=== PATIENT | female | born 1960 | race Caucasian/White ===

== ENCOUNTER 2016-12-05 11:03 | Inpatient (IN) | payer SELFPAY ==
[~2016-12-05] VITALS: Ht 172.7 cm; Wt 95.5 kg
[2016-12-05 12:09] LABS: BASOPHILS 0.3 % (0-2); EOSINOPHILS 1.2 % (0-7); HEMATOCRIT 45.6 % (36.0-48.0); HEMOGLOBIN 14.9 g/dL (12-16); IMMATURE GRANULOCYTES 0.3 % (0-5); LYMPHOCYTES 13.8 % (15-50); MCH 29.5 pg (26.0-34.0); MCHC 32.7 g/dL (31.0-37.0); MCV 90.3 fL (80.0-100.0); MEAN PLATELET VOLUME 10.3 fL (7.4-10.4); MONOCYTES 7.1 % (2-11); NEUTROPHILS 77.3 % (40-80); PLATELET COUNT 268 10x3/uL (130-400); RBC 5.05 10x6/uL (4.00-5.40); RDW 14.1 % (11.5-14.5); WBC 10.6 10x3/uL (4.8-10.8)
[2016-12-05 12:16] LABS: APPEARANCE SLT CLOUDY (CLEAR); BACTERIA MANY /hpf (NONE SEEN); BILIRUBIN NEGATIVE (NEGATIVE); COLOR YELLOW (YELLOW); GLUCOSE NEGATIVE (NEGATIVE); KETONE NEGATIVE (NEGATIVE); LEUKOCYTE ESTERASE TRACE (NEGATIVE); NITRITE POSITIVE (NEGATIVE); PROTEIN 3+ mg/dL (NEGATIVE); RED CELLS - URINE 0-5 /hpf (0-5); UROBILINOGEN NORMAL (NORMAL)
[2016-12-05 12:17] LABS: EPITHELIAL CELLS RARE /hpf (0-5)
[2016-12-05 12:30] LABS: ALBUMIN 2.7 g/dL (3.4-5.0); ALKALINE PHOSPHATASE 82 U/L (46-116); ALT (SGPT) 13 U/L (10-68); BILIRUBIN - TOTAL 0.41 mg/dL (0.2-1.3); CALC OSMOLALITY 289 mosm/kg (275-300); CALCIUM 9.1 mg/dL (8.5-10.1); CARBON DIOXIDE 28.1 mmol/L (21.0-32.0); CHLORIDE - SERUM 105 mmol/L (98-107); CREATININE - SERUM 0.8 mg/dL (0.6-1.3); GLUCOSE 247 mg/dL (74-106); POTASSIUM - SERUM 3.9 mmol/L (3.5-5.1); PROTEIN - SERUM 7.2 g/dL (6.4-8.2); SODIUM 141 mmol/L (136-145); UREA NITROGEN 15 mg/dL (7-18); eGFR NON AFRICAN AMERICAN 78 mL/min (90-120)
[2016-12-05 12:36] LABS: INR 0.97 (0.85-1.17); PROTIME 12.7 SECONDS (11.6-15.0)
[2016-12-05 12:43] LABS: CKMB 0.5 U/L (0.0-3.6); CREATINE KINASE 33 UL (21-215); MAGNESIUM - SERUM 1.8 mg/dL (1.8-2.4); PRO BNP 243 pg/mL (0-125)
[2016-12-05 12:48] LABS: TROPONIN-I < 0.017 ng/mL (0.000-0.060)
[2016-12-05 17:30] VITALS: BP 193/90
--- NOTE | 2016-12-05 17:30 | NUR ---
TO ROOM 2239 FROM ER VIA STRETCHER.ASSESSMENT PER FLOW SHEET.UPPER AND LOWER RIGHT SIDED WEAKNESS.PT IS ALERT AND TALKING.STATES SHE HAD NOTICED THE WEAKNESS FOR 2 DAYS AND WAS GOING TO TODAY.SHE REPORTS SHE FELL AND HAD TO CALL AMBULANCE AND COME TO HOSPITAL.ORIENTATION TO ROOM WITH PT AND HER .CALL LIGHT IN REACH
[2016-12-05 17:57] VITALS: BP 193/90; BMI 33.2
[2016-12-05] MEDS ORDERED: ULTRAM50 MG PO (18:23)
[2016-12-05 19:00] VITALS: BP 157/74
--- NOTE | 2016-12-05 19:50 | NUR ---
ASSESSMENT COMPLETED, NO DISTRESS NOTED, DENIES PAIN OR NEEDS, SR'S UP, CL IN REACH, SPOUSE IN ROOM, WILL MONITOR
[2016-12-05 20:11] LABS: HEMOGLOBIN A1C 7.8 % (4.8-6.0)
[2016-12-05 20:16] LABS: CHOL - HDL RATIO 2.9 ratio (2.3-4.1); LDL-HDL RATIO 1.6 ratio (1.5-3.5)
--- NOTE | 2016-12-05 20:23 | NUR ---
MEDS GIVEN PER MAR, 8 UNITS INSULIN PER SLIDING SCALE, MIGUEL A WELL, DENIES NEEDS AT THIS TIME, SR'S UP, CL IN REACH, S/O IN ROOM, CL IN REACH
--- NOTE | 2016-12-05 22:40 | NUR ---
RESTING WITH EYES CLOSED, NO DISTRESS NOTED, FALL PRECAUTIONS IN PLACE, CL IN REACH
[2016-12-06] VITALS (7 sets, daily range): BP systolic 132–214; BP diastolic 56–93; Ht 172.7 cm; Wt 95.5 kg
--- NOTE | 2016-12-06 01:45 | NUR ---
BED BATH PROVIDED WITH HUSBANDS ASSISTANCE
--- NOTE | 2016-12-06 19:10 | NUR ---
ASSESSMENT COMPLETED, NO ACUTE DISTRESS NOTED, DENIES PAIN OR NEEDS AT THIS TIME, SR'S UP, BED ALARM ON, CL IN REACH, WILL MONITOR
--- NOTE | 2016-12-06 20:33 | NUR ---
ASSISTED ON BEDPAN, MEDS GIVEN PER JUL, 4 UNITS INSULIN PER SLIDING SCALE, MIGUEL A WELL, DENIES NEEDS, AT BEDSIDE, SR'S UP, BED ALARM ON, CL IN REACH
--- NOTE | 2016-12-06 21:40 | NUR ---
SITTING UP IN BED WATCHING TV, DENIES PAIN OR NEEDS, SAFETY PRECAUTIONS IN PLACE, CL IN REACH
--- NOTE | 2016-12-06 23:06 | NUR ---
ASSISTED ON AND OFF BEDPAN, MIGUEL A WELL, DENIES FURTHER NEEDS, SAFETY MEASURES IN PLACE, CL IN REACH
--- NOTE | 2016-12-07 01:15 | NUR ---
RESTING WITH EYES CLOSED, RESP WITH EASE, NO DISTRESS NOTED, SAFETY MEASURES IN PLACE, CL IN REACH
[2016-12-07 03:54] VITALS: BP 196/81
[2016-12-07 08:59] VITALS: BP 185/80
--- NOTE | 2016-12-07 12:30 | NUR ---
HAS HAD BATH, PROVIDED.HAS BEEN WITHOUT DISTRESS AND ALERT.RIGHT ARM HAS MODERATE WEAKNESS.PT STATES RIGHT LEG BETTER.INSTRUCTED PT THAT SHE IS AT RISK FOR FALL AND IS NOT TO GET UP.BED ALARM REMAINS ON AND WORKING. AT BEDSIDE
[2016-12-07 13:24] VITALS: BP 139/74
[2016-12-07 15:44] VITALS: BP 164/70
--- NOTE | 2016-12-07 16:20 | NUR ---
BED CHANGE AFTER BATH AGAIN BY .PT REMAINS WITHOUT DISTRESS.MONITOR
--- NOTE | 2016-12-07 16:57 | NUR ---
BLOOD SUGAR 163 AFTER DINNER TRAY. PT DECLINES INSULIN.STATES IF IT IS HIGH LATER SHE WILL TAKE SOME.REMAINS WITHOUT CHANGE FROM INITIAL SHIFT ASSESSMENT.CONT PLAN OF CARE
--- NOTE | 2016-12-07 19:45 | NUR ---
RECIEVED SHIFT REPORT. PT IS SITTING UP IN BED. ALERT AND ORIENTED AND ABLE TO VERBALIZE NEEDS. IV IS PATENT AND SALINE LOC AT THIS TIME. PT IS ABLE TO TURN SELF IN BED FOR COMFORT AND SKIN CARE. PT STATES PAIN IS 7/10. NO NEEDS ARE VERBALIZED AT THIS TIME. WILL CONTINUE TO MONITOR. IS AT THE BEDSIDE. SIDE RAILS ARE UP X 2. BED IS IN LOWEST POSITION. BED ALARM IS ON FOR SAFETY. CALL LIGHT IS WITHIN REACH.
--- NOTE | 2016-12-07 21:31 | NUR ---
SHIFT ASSESSMENT COMPLETED. NIGHT MEDS GIVEN WITH NO PROBLEMS. PT RECIEVED 4 UNITS INSULIN PER SLIDING SCALE FOR FOCJ=844. PT C/O PAIN 12/08. ADMINISTERED PRESCRIBED PRN ULTRAM PER ORDER. DENIES FURTHER NEEDS. WILL MONITOR. AT BEDSIDE. SIDE RAILS X 2. BED LOW. BED ALARM ON. CALL LIGHT IN REACH.
[2016-12-08 04:00] VITALS: BP 176/67
[2016-12-08 07:44] VITALS: BP 112/51
[2016-12-08 07:45] VITALS: BP 138/84
--- NOTE | 2016-12-08 07:50 | NUR ---
PT AOX4 RESP EVEN AND NONLABORED PT DENIES NEEDS AT THIS TIME IV TO RIGHT FOREARM PATENT AND INTACT AT THIS TIME SRX2 BED AT LOWEST SETTING CALL LIGHT WITHIN REACH WILL CONTINUE TO MONITOR
--- NOTE | 2016-12-08 10:17 | NUR ---
Patient Name: JESSE SHAFFER Admission Status: ER Accout number: [id number] Admission Date: 12-05-2016 : 1960 Admission Diagnosis: Attending: MAGGIE Current LOS: 3 Anticipated DC Date: 12-11-2016 Planned Disposition: Home with Home Health Primary Insurance: [employer] Discharge Planning Comments: CM MET WITH PATIENT REGARDING D/C NEEDS AND PLANS. PATIENT STATED SHE LIVES WITH HER SPOUSE (ES) AND HE WILL DRIVE PATIENT HOME AT DISCHARGE. PATIENT HAS 2 STEPS W/O RAILING TO ENTER HOME AND NO STAIRS INSIDE. PATIENTS PCP IS DR. CASANOVA AND PHARMACY IS [facility]. PATIENT STATED SHE IS INDEPENDENT AT HOME AND HAS A GLUCOMETER AND BS COMMODE. PATIENT SIGNED THE ZEN FORM WITH [employer] AND REFERRAL HAS BEEN SENT. CM WILL CONTINUE TO FOLLOW PATIENT WITH D/C NEEDS AND PLANS. PCP DR. J[facility]NE [facility]- [phone] ES (SPOUSE) [phone] OR [phone] Relationship Executive: Maria Guadalupe Herron Is the patient Alert and Oriented? Yes 0 * How many steps to enter\exit or inside your home? 2 0 * PCP JOCELYNE 0 * Pharmacy [facility] 0 * Preadmission Environment Home with Family 0 * ADLs Independent 0 * Equipment Bedside Commode Glucometer 0 * List name and contact numbers for known caregivers / representatives who currently or will assist patient after discharge: ES (SPOUSE) [phone] OR [phone] 0 * Community resources currently utilized None 0 * Additional services required to return to the preadmission environment? Yes 0 * Can the patient safely return to the preadmission environment? Yes 0 * Has this patient been hospitalized within the prior 30 days at any hospital? No 0 Grand Total: 0
[2016-12-08 11:38] VITALS: BP 100/59
--- NOTE | 2016-12-08 13:38 | NUR ---
NUTRITION MONITORING & EVAL CHART REVIEWED. PT VISIT. PT TOLERATING AHA MECH SOFT DIET. NO COMPLAINTS. WILL CONTINUE TO PROVIDE CURRENT DIET, MONITOR PO INTAKE. RD FOLLOWING
[2016-12-08 15:46] VITALS: BP 164/71
--- NOTE | 2016-12-08 17:06 | NUR ---
OT NOTE: PT COMPLETED PROPER POSITIONING DURING MEAL. PT REQUIRES MIN/MOD WITH CUTTING OF FOODS. PT COMPLETED SROM EXS FOR OPTIMAL RETURN OF FUNCTION OF RUE, THANK YOU, OLIVIER ROCA/Adrian
[2016-12-08 20:00] VITALS: BP 163/80
[2016-12-09] VITALS: BP 152/77
--- NOTE | 2016-12-09 03:00 | NUR ---
PATIENT IS RESTING QUIETLY WITH EYES CLOSED. NO SIGNS OF DISTRESS NOTED. BED IN LOWEST POSITION, CALL LIGHT IN REACH. BED RAILS UP X'S 2.
[2016-12-09 04:00] VITALS: BP 166/76
[2016-12-09 09:05] VITALS: BP 163/82
--- NOTE | 2016-12-09 10:17 | EC ---
PATIENT:JESSE SHAFFER DATE OF SERVICE: 12/05/16 SEX: F MEDICAL RECORD: [id number] DATE OF : [birth year] LOCATION:[facility] AGE OF PATIENT: 55 ADMISSION DATE: 12/05/16 REFERRING PHYSICIAN: INTERPRETING PHYSICIAN: CHRIS ESCUDERO MD ECHOCARDIOGRAM REPORT ECHO CHARGES 4 ECHO COMPLETE CLINICAL DIAGNOSIS: CVA ECHOCARDIOGRAPHIC MEASUREMENTS (adult normal given) AC root (d.<3.7cm) 3.1 LV Septum d (<1.2 cm> 1.2 Valve Excursion 2.0 LV Septum (systole) 1.4 Left Atria (s.<4.0cm> 3.1 LVPW d(<1.2cm) 1.1 RV (d.<2.3cm) 3.2 LVPW (sytole) 1.3 LV diastole(<5.6CM) 3.7 MV E-F(>70mm/sec) LV systole 2.5 LVOT Diameter 1.4 MV exc.(>10mm) 1.4 Est.ejection fraction (50-75%) Pericardial Effusion N DOPPLER: LVIT A 103 E 82.0 LA RVSP 17 LVOT 89 AOP1/2T Asc. Ao 109 RVOT 43 RA PA 108 AV Gradient Peak 4.71 AV Mean 2.37 AV Area 1.5 MV Gradient Peak 4.89 MV Mean 2.34 MV Area COMMENTS: PA 108 CM/SEC OR 4.64 MMHG RVSP 17 MMHG Weave Defect Charting Clerk: Madison MARTINEZ Hris Developer:1 Dr. Escudero TAPE# PACS TWO-DIMENSIONAL ECHOCARDIOGRAM WITH DOPPLER 1. Left ventricular chamber size is within normal limits. Left ventricular systolic function is normal. Overall ejection fraction is estimated at 55 percent. 2. Left atrium, right atrium, and right ventricular chamber sizes are within normal limits. 3. Valvular structures have normal structure and motion. 4. Doppler interrogation reveals mild tricuspid regurgitation; no other valvular insufficiency or stenosis. Pulmonary artery systolic pressure is normal estimated at 17 millimeters of mercury. ECHOCARDIOGRAM REPORT [id number] JESSE SHAFFER 5. No evidence of pericardial effusion or left ventricular thrombus. CHRIS ESCUDERO MD at 1017 CC: [id number] DICTATION DATE: 12/06/16 1200 BAR POINTER: DM 12/08/16 0937 ADM IN [facility] [address] [facility] [place] [address]
[2016-12-09 11:37] VITALS: BP 135/71
--- NOTE | 2016-12-09 17:09 | NUR ---
OT NOTE: SHOWING GOOD PROGRESS WITH AROM AND COORDINATION IN R HAND; PT EXHIBITS ALMOST FULL AROM IN ALL JOINTS OF R HAND; STRENGTH IS DECREASED BUT MUCH BETTER MOVEMENT NOTED TODAY. INSTRUCTED PT IN EXS TO BE PERFORMED TO HELP IMPROVE STREGNTH AND FINE MOTOR COORDINATION
--- NOTE | 2016-12-09 17:09 | NUR ---
OT NOTE: PT COMPLETED SIT TO STANDS WITH CGA. PT COMPLETED DYNAMIC STANDING BALANCE WITH LUE GROSS MOTOR AXS FOR INCREASED I WITH ADLS. PT COMPLETED RUE SROM EXERCISES TO FACILITATE NEURO PLASTICITY. PT GIVEN FM SKILL ACTIVITIES FOR INCREASED I WITH DRESSING AND SELF FEEDING. PT COMPLETED SIMPLE GROOMING TASK WITH SET UP. THANK YOU, OLIVIER ROCA/Adrian
--- NOTE | 2016-12-09 19:48 | NUR ---
PATIENT IS AWAKE, ALERT AND ORIENTED X'S 4. RESPIRATIONS ARE EVEN AND UNLABORED ON ROOM AIR. PATIENT IS SMILING, VERY PLEASENT, TELLING ME ABOUT HER DAY AND ACCOMPLISHMENTS WITH HER PHYSICAL THERAPY PROGRESSION. PATIENT DENIES NEEDS AT THIS TIME. BED IS IN LOWEST POSITION, CALL LIGHT IN REACH. BED RAILS UP X'S 2. HOB 45 DEGRESS.
[2016-12-09 20:00] VITALS: BP 168/79
[2016-12-10 08:10] VITALS: BP 140/68
[2016-12-10 12:51] VITALS: BP 153/65
[2016-12-10] MEDS ORDERED: PLAVIX75 MG PO (14:02)
[2016-12-10] MEDS ORDERED: ELIQUIS5 MG PO (14:02)
[2016-12-10] MEDS ORDERED: LIPITOR10 MG PO (14:02)
[2016-12-10] MEDS ORDERED: LISINOPRIL10 MG PO (14:03)
[2016-12-10] MEDS ORDERED: GLUCOPHAGE1000 MG PO (14:04)
--- NOTE | 2016-12-10 16:21 | NUR ---
CM SPOKE WITH PATIENT ABOUT OUT PATIENT THEARPY I GAVE THE PATIENT THE FISCHER FOR SCHAFFER PAYING. I EXPLAINED TO HER THE COST AND SHE STATED THAT SHE COULD NOT AFFORD THAT. ANGULAR DEVELOPER PT/OT ([place]) STATED THAT SHE COULD COME TO OP THEARPY AND HE WOULD SHOW HER SOME EXERCISES AND NOT CHARGE HER AND SHE COULD DO THEM AT HOME. PATIENT WAS GREATFUL AND WILL COME UP THERE TOMORROW
--- NOTE | 2016-12-10 17:22 | NUR ---
IV DISCONTINUED WITH CATHETER INTACT AT THIS TIME PT AND SPOUSE GIVEN DISCHARGE INSTRUCTIONS AND APPT TIMES AT THIS TIME PT AND SPOUSE STATE UNDERSTANDING
--- NOTE | 2016-12-10 17:52 | NUR ---
PT TAKEN VIA WHEELCHAIR VIA PRIVATE VEHICLE AT THIS TIME
== END 2016-12-10 17:53 | disposition home or self-care (01) | DRG 65 ==
LOC: D.ER 11:03 → D.MS 14:48
PROVIDERS: Emergency Medicine; Nurse Practitioner Family; ADMIT Family Medicine
DX: I63.232 Cerebral infarction due to unspecified occlusion or stenosis of left carotid arteries (principal); N39.0 Urinary tract infection, site not specified; E11.65 Type 2 diabetes mellitus with hyperglycemia; I10 Essential (primary) hypertension; Z79.4 Long term (current) use of insulin; F17.200 Nicotine dependence, unspecified, uncomplicated

== ENCOUNTER → 2017-01-08 14:40 | Outpatient (CLI) | payer SELFPAY ==
[2016-12-06 10:15] VITALS: BMI 33.1
[~2017-01-08 14:40] MED LIST: ELIQUIS5 MG PO; GLUCOPHAGE1000 MG PO; LIPITOR10 MG PO; LISINOPRIL10 MG PO; PLAVIX75 MG PO; ULTRAM50 MG PO
== END | disposition home or self-care (01) ==
LOC: D.CT 01-06 15:30
DX: I65.23 Occlusion and stenosis of bilateral carotid arteries (principal)

== ENCOUNTER 2017-02-16 09:10 | Inpatient (IN) | payer SELFPAY ==
[~2017-02-16] VITALS: Ht 172.7 cm; Wt 97.5 kg
--- NOTE | ~2017-02-16 | OP ---
PATIENT NAME: JESSE SHAFFER MEDICAL RECORD: [id number] :58 [facility] ADMISSION DATE:02/16/17 SURGEON: STEPHEN MARIANO MD DATE OF OPERATION: 02/18/2017 SURGEON: Stephen Mariano MD ANESTHESIA: General endotracheal, Dr. Chopra. OPERATION PERFORMED: Left carotid endarterectomy with patch angioplasty. PREOPERATIVE DIAGNOSES: Critical left internal carotid artery stenosis, severe right internal carotid artery stenosis. POSTOPERATIVE DIAGNOSES: Critical left internal carotid artery stenosis, severe right internal carotid artery stenosis. INDICATION FOR OPERATION: Critical carotid stenosis. FINDINGS AT OPERATION: Critical left internal carotid artery stenosis. There were no EEG changes with clamping or unclamping of the carotid artery. ESTIMATED BLOOD LOSS: Less than 100 mL. DESCRIPTION OF PROCEDURE: After informed consent and adequate preoperative medication evaluation, the patient was brought to the operating room and placed on the table in the supine position. After induction of general endotracheal anesthesia and application of appropriate monitoring devices, the left neck and chest were prepped and draped in a sterile field, utilizing Betadine scrub, alcohol, and Betadine solution. A Betadine-impregnated drape was also used. An oblique incision was made in the skin crease. Dissection was carried down to the fascia. Hemostasis was maintained with electrocautery. Facial vein was identified and divided. Utilizing sharp dissection, the common carotid, internal and external carotid arteries were dissected free of surrounding structures, protecting the neurological structures. The patient was given a calculated dose of heparin. After 3 minutes, clamps were applied. After 2 minutes, no EEG changes. The arteriotomy was made and extended with Pickens scissors. Artery underwent endarterectomy sharply. Artery underwent extensive debridement and irrigation. Utilizing a vascular patch, a running 7-0 Prolene suture, the arteriotomy was closed with patch angioplasty technique. All maneuvers to remove trapped air were performed. The clamps were removed sequentially. There were no EEG changes. The patient was given a calculated dose of protamine to reverse the heparin. Hemostasis was achieved, and a #7 Osman-Carmona drain was left in the depth of wound and brought through the base of the neck. Neck was again irrigated. Instrument count and sponge count were correct times 2. Neck was closed in layers utilizing 3-0 Vicryl on the platysma, 5-0 subcuticular Monocryl on the skin. Sterile dressings were applied. The patient tolerated the procedure well and was transferred to CV ICU in satisfactory condition. TRANSINT:[id number] Voice Confirmation ID: [id number] DOCUMENT ID: [id number] OPERATIVE REPORT [id number] JESSE SHAFFER EDWARD MD CC: [id number] DICTATION DATE: 02/18/171601 SOLE SEAMER: 02/18/17 192 ADM IN [facility] [address] [place] [address]
--- NOTE | ~2017-02-16 | HP ---
PATIENT: JESSE SHAFFER MEDICAL RECORD: [id number] ACCOUNT: [id number] LOCATION:[address] : [birth year] ADMISSION DATE: 02/16/17 HISTORY AND PHYSICAL EXAMINATION NameJESSE SHAFFER (56yo, F) ID# [id number]. Date/Time02/12/2017 09:45SCOFU61/30/[facility] Dept.NPP_[facility] ClinicProviderEDMARION MARIANO MDInsuranceMed Primary: *SELF PAY* Prescription: [employer] - This member could not be found in the payer's files. Please verify coverage and all member demographic information. Chief Complaint Followup: Carotid artery stenosis RTC with CTA neck Patient's Care Team Primary Care Provider: DAKOTA CASANOVA MD: [address] [place] [address], , Other: ZORA DOUGLAS MD: [address] [place] [address], , Vitals BP:120/80 sitting R arm 02/12/2017 09:36 amHR:100R/R 02/12/2017 09:37 amHt:5 ft 8 in 02/12/2017 09:28 amWt:218 lbs 02/12/2017 09:34 amBMI:33.1 02/12/2017 09:34 amAllergies Reviewed Allergies PENICILLINSMedications Reviewed Medications atorvastatin 10 mg tablet TK 1 T PO QD01/10/17 filledsurescriptsclopidogrel 75 mg tablet TK 1 T PO QD01/10/17 filledsurescriptsEliquis 5mg twice daily12/30/16 enteredCindy BrownEliquis 5 mg tablet TK 1 T PO BID01/31/17 filledsurescriptslisinopril 20 mg tablet TK 1 T PO QD01/10/17 filledsurescriptsmetFORMIN 1,000 mg tablet TK 1 T PO BID WITH MEALS01/10/17 filledsurescriptstraMADol 50 mg tablet TK 1 T PO Q 6 H PRN P001/05/17 rtsawfeuboysgolfbXjoxlb53/01/17 enteredFormerly [facility] Healthshruthi BrownProblems Reviewed Problems Carotid artery stenosis - Onset: 12/30/2016 Family History Discussed Family History Father- Malignant neoplastic diseaseMother- Malignant neoplastic diseaseSocial History Discussed Social History Cardiology Family history of heart disease?: Y Smoking Status: Current every day smoker High Cholesterol: Y High blood pressure: Y Diabetes: Y Surgical History Reviewed Surgical History Other - Tonsilectomy Other - ACF 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 HPI stroke Severe internal carotid artery bilaterally ROS Patient reports exercise intolerance but reports no fever, no night sweats, no significant weight gain, and no significant weight loss. She reports muscle aches, muscle weakness, and arthralgias/joint pain but reports no back pain and no swelling in the extremities. She reports weakness and numbness but reports no loss of consciousness, no seizures, no dizziness, and no headaches; stroke left jess. She reports no dry eyes, no irritation, and no vision change. She reports no difficulty hearing and no ear pain. She reports no frequent nosebleeds and no nose/sinus problems. She reports no sore throat, no bleeding gums, no snoring, no dry mouth, no mo u th ulcers, no oral abnormalities, and no teeth problems. She reports no jugular vein distension and no swollen glands. She reports no chest pain, no arm pain on exertion, no shortness of breath when walking, no shortness of breath when lying down, no palp i tations, and no known heart murmur. She reports no cough, no wheezing, no shortness of breath, and no coughing up blood. She reports no abdominal pain, no vomiting, normal appetite, no diarrhea, not vomiting blood, no nausea, and no constipation. She repo r ts no incontinence, no difficulty urinating, no hematuria, and no increased frequency. She reports no abnormal mole, no jaundice, and no rashes. She reports no depression, no sleep disturbances, feeling safe in relationship, and no alcohol abuse. She repo rts no fatigue. She reports no swollen glands and no bruising. She reports no runny nose, no sinus pressure, no itching, no hives, and no frequent sneezing. ROS as noted in the HPI Physical Exam Patient is a 56-year-old female. Constitutional: General Appearance healthy-appearing, well developed, and overweight. Level of Distress NAD. Ambulation ambulation with walker. Cardiovascular: Apical Impulse not displaced or no thrill. Heart Auscultation normal s1 and s2; no murmurs, rubs, or gallops; and RRR. Art erial Pulses no abdominal aorta bruits, femoral bruits, or popliteal bruits and 2+ bilateral, carotid 2+ bilateral, femoral 2+ bilateral, popliteal 2+ bilateral, and dorsalis pedis 2+ bilateral. Edema no edema or varicosities. Lungs: Repiratory Effort no dyspnea. Percussion no hyperresonance or dullness or flatness. Auscultation no wheezing, rhonchi, or rales / crackles and breathing sounds normal, good air movement, and CTA except as noted. HISTORY AND PHYSICAL [id number] JESSE SHAFFER Abdomen: Bowl Sounds normal. Inspection and Palpation no tendern ess, guarding, masses, or rebound tenderness and soft and non-distended. Liver non-tender and no hepatomegaly. Spleen non-tender and no splenomegaly. Hernia none palpable. Musculoskeletal System: Gait And Stance wide-based and irregular gait and stance. Digits and Nails normal nails and no cyanosis. Joints, Bones, and Muscles limited ROM and abnormal strength; especially right upper extremity. Neurologic: Cranial Nerves grossly intact. Reflexes DTRs abnormal. Sensation grossly intact. Lymph Nodes: Lymph Nodes no cervical LAD, supraclavicular LAD, axillary LAD, or inguinal LAD. Eyes: Lids and Conjunctivae no discharge or pallor and non-injected. Pupils PERRLA. Cornea grossly intact. EOM EOMI. Lens clear. Sclera non-icteric. Neck: Neck no masses, enlarged lymph nodes, or carotid bruits and supple and trachea midline. Thyroid no enlargement or nodules and non-tender. Skin: Inspection and Palpation no rash, lesions, ulcers, jaundice, or abnormal nevi. Assessment / Plan symptoms and stroke mostly resolved Severe subtotal left internal carotid artery stenosis Severe right internal carotid artery stenosis 1. Carotid artery stenosis I65.23: Occlusion and stenosis of bilateral carotid arteries CAROTID STENOSIS: CARE INSTRUCTIONS Discussion Notes the patient would benefit from left carotid endarterectomy. I have discussed her disease process with her and her in detail as well as the alternative methods of treatment. We discussed left carotid endarterectomy including the expected benefits a n d risk which include bleeding, infection, stroke, and imponderables. She understands all of the above and wishes to proceed surgery left carotid endarterectomy and she will require bridge to operation heparin in order to discontinue her eliquis for the procedure FANNIE MARIANO MD CC: [id number] DICTATION DATE: 02/12/17899 RAMP SERVICE EMPLOYEE: SOLEDAD 02/16/17 1107 ADM IN [facility] [address] [place] [address]
--- NOTE | 2017-02-16 11:00 | NUR ---
ARRIVE TO ROOM VIA WHEELCHAIR ACCOMPAINIED BY SPOUSE. ALERT AND ORIENTED X4. AMBULATES TO BED. SKIN PALE. DENIES PAIN OR SOB. REPORTS RT SIDE MOTOR SKILL WEAKNESS. SINUS RHTHYM 98bpm ON TELEMETRY. CONTINUE ADMISSION PROCESS. REFUSES SCDs WHILE AWAKE. BED LOCKED AND LOW. CALL LIGHT IN REACH. TO SIDERAILS UP.
[2017-02-16 11:43] LABS: BASOPHILS 0.2 % (0-2); EOSINOPHILS 1.1 % (0-7); IMMATURE GRANULOCYTES 0.3 % (0-5); MCH 28.5 pg (26.0-34.0); MCHC 32.6 g/dL (31.0-37.0); MCV 87.6 fL (80.0-100.0); MEAN PLATELET VOLUME 10.3 fL (7.4-10.4); MONOCYTES 5.8 % (2-11); NEUTROPHILS 69.6 % (40-80); PLATELET COUNT 316 10x3/uL (130-400); RBC 4.91 10x6/uL (4.00-5.40); RDW 13.6 % (11.5-14.5); WBC 10.9 10x3/uL (4.8-10.8)
[2017-02-16 11:52] LABS: APTT 21.6 SECONDS (22.8-39.4)
[2017-02-16 11:53] LABS: INR 0.88 (0.85-1.17); PROTIME 11.7 SECONDS (11.6-15.0)
[2017-02-16 11:58] LABS: ALBUMIN 3.1 g/dL (3.4-5.0); ALKALINE PHOSPHATASE 79 U/L (46-116); ALT (SGPT) 17 U/L (10-68); BILIRUBIN - TOTAL 0.16 mg/dL (0.2-1.3); CALC OSMOLALITY 288 mosm/kg (275-300); CALCIUM 9.7 mg/dL (8.5-10.1); CARBON DIOXIDE 27.3 mmol/L (21.0-32.0); CHLORIDE - SERUM 101 mmol/L (98-107); CREATININE - SERUM 0.7 mg/dL (0.6-1.3); GLUCOSE 242 mg/dL (74-106); POTASSIUM - SERUM 4.5 mmol/L (3.5-5.1); PROTEIN - SERUM 7.3 g/dL (6.4-8.2); SODIUM 140 mmol/L (136-145); UREA NITROGEN 19 mg/dL (7-18); eGFR NON AFRICAN AMERICAN > 90 mL/min (90-120)
[2017-02-16 12:48] VITALS: BP 176/85
[2017-02-16 17:14] VITALS: BP 168/79
[2017-02-16 17:44] VITALS: BP 176/85; BMI 32.4
[2017-02-16 19:00] VITALS: BP 171/68
--- NOTE | 2017-02-16 20:00 | NUR ---
PT RESTING IN BED WITH EYES CLOSED. SR PER TELEMETRY. NONLABORED RESPIRATIONS ON ROOM AIR. CURRENTLY WITH HEPARIN DRIP AT 10ML/HR. ON HEPARIN PROTOCOL, PENDING NEXT BLOOD DRAW TO TITRATE RATE IF NEEDED.
[2017-02-17] VITALS: BP 189/81
[2017-02-17 04:00] VITALS: BP 157/72
--- NOTE | 2017-02-17 04:34 | NUR ---
REQUESTING IBUPROFEN. AGREED TO TAKE ULTRAM FOR GENERALIZED PAIN. CPOC.
--- NOTE | 2017-02-17 04:47 | NUR ---
ASSISTED UP TO BSC TO VOID. BACK TO BED. MARCIAL NOW IN ROOM.
--- NOTE | 2017-02-17 07:20 | NUR ---
STANDING WEIGHT OBTAINED ON PATIENT AND RECORDED AT THIS TIME. NO DISTRESS.
[2017-02-17 08:25] VITALS: BP 180/75
[2017-02-17 09:50] VITALS: Ht 172.7 cm; Wt 97.5 kg
[2017-02-17 12:12] VITALS: BP 127/69
--- NOTE | 2017-02-17 12:42 | NUR ---
SITTING IN BED. DENIES NEEDS. CONSUMING NOON MEAL. NO DISTRESS. CALL LIGHT WITHIN REACH.
--- NOTE | 2017-02-17 15:45 | NUR ---
FSBS 223. 8 UNITS HUMULIN ADMINISTERED PER SLIDING SCALE. NO DISTRESS.
[2017-02-17 16:24] VITALS: BP 155/57
--- NOTE | 2017-02-17 17:32 | NUR ---
SPOKE WITH DR.WARRENS SUSANNE NURSE TO CLARIFY IF PATIENT IS TO TAKE HER SCHEDULED 1715 DOSE OF METFORMIN AND SHE STATED YES TO TAKE IT, THERE IS NO REASON TO HOLD HER MEDICATIONS AT THIS TIME BUT AT MIDNIGHT, PATIENT IS TO BE NPO. THANKED HER FOR THIS CLARIFICATION BECAUSE PATIENT WAS CONFUSED WITH WHAT THE ANASTETHILOGIST, TOLD HER.
--- NOTE | 2017-02-17 17:39 | NUR ---
MEDICATED FOR PAIN AT THIS TIME. NO DISTRESS.
--- NOTE | 2017-02-17 18:47 | NUR ---
1825 ATTEMPTED TO COLLECT URINE SPECIMEN FROM PATIENT. PATIENT HAD BOWEL MOVEMENT IN URINE. URINE UNABLE TO BE COLLECTED AND SENT FOR UA.
[2017-02-17 19:00] VITALS: BP 115/64
--- NOTE | 2017-02-17 19:30 | NUR ---
ALERT/AWAKE ORIENTED X 4. DENIES ANY NEEDS OR DISCOMFORTS. IV IN R WRIST WITH HEPARIN INFUSING AT 12 ML/HR. TELEMETRY SHOWS 88 SR. ORIENTED TO CL FOR ANY NEEDS. HER IS PRESENT IN ROOM.
--- NOTE | 2017-02-17 19:35 | NUR ---
PTT 63.8, ADJ HEPARIN DRIP FROM 12ML/HR TO 13ML/HR.
--- NOTE | 2017-02-17 21:00 | NUR ---
ADMIN 5 UNITS HUMULIN R FOR BS 171. REQUESTED MORE ICE WATER. NO OTHER NEEDS VOICED.
[2017-02-17 23:39] LABS: APPEARANCE CLEAR (CLEAR); BILIRUBIN NEGATIVE (NEGATIVE); COLOR YELLOW (YELLOW); GLUCOSE NEGATIVE (NEGATIVE); KETONE NEGATIVE (NEGATIVE); LEUKOCYTE ESTERASE TRACE (NEGATIVE); NITRITE NEGATIVE (NEGATIVE); PROTEIN 3+ mg/dL (NEGATIVE); UROBILINOGEN NORMAL (NORMAL)
[2017-02-17 23:40] LABS: BACTERIA FEW /hpf (NONE SEEN); EPITHELIAL CELLS 0-5 /hpf (0-5); HYALINE CAST OCC /lpf (NONE SEEN); MUCUS <1+ /lpf (NONE SEEN); RED CELLS - URINE 0-5 /hpf (0-5); WHITE CELLS - URINE 0-5 /hpf (0-5)
[2017-02-18] VITALS (40 sets, daily range): BP systolic 94–198; BP diastolic 37–87
--- NOTE | 2017-02-18 01:52 | NUR ---
PTT 50.9, ADJUSTED UP TO 14 ML/HR PER HEPARIN PROTOCOL ORDER.
--- NOTE | 2017-02-18 10:59 | NUR ---
PT WAITING FOR OR. NPO. MONITOR SHOWS SR @ RATE OF 90. WILL CONTINUE TO MONITOR.
--- NOTE | 2017-02-18 11:50 | NUR ---
ASSESSMENT COMPLETED. LYING QUIETLY. NPO FOR SURGERY O2 AT 2 LM PER NC. TELEMERTY SHOWS SR. IV OD NS AT 10. DENIES ANY NEEDS. SR UP WITH CALL LIGHT IN REACH. WILL MONITOR
--- NOTE | 2017-02-18 11:55 | NUR ---
TO OR PER BED. NO NEEDS NOTED OR VOICED
--- NOTE | 2017-02-18 15:58 | NUR ---
Received patient to CVO2 with OR team, . Patient arouses to voice and answers appropriately. Left carotid incision dressing CDI, ice pack applied. Left upper chest RHINA drain compressed. Right subclavian double lumen CVL infusing plasmalyte @ 100mls/hr. See shift assessment flowsheet for all findings.
--- NOTE | 2017-02-18 16:13 | NUR ---
Patient c/o nausea, Zofran ordered per .
--- NOTE | 2017-02-18 17:05 | NUR ---
Patients pressure 84 systolic. informed, orders to turn Dopamine on @ 5mcgs and wean off received. Dopamine gtt started. SBP 113.
--- NOTE | 2017-02-18 17:55 | NUR ---
Patient provided pain medication now that SBP remains within parameters. Significant other at bedside.
--- NOTE | 2017-02-18 19:30 | NUR ---
REPORT RECIEVED. ASSESSMENT COMPLETED. SEE FLOW FOR FURTHER DETAILS. IN THE PROCESS OF WEANING DOPAMINE OFF. PT REQUESTED SOME ICE CHIPS, PROVIDED TOLERATES WELL. WILL CONTINUE TO MONITOR PT.
--- NOTE | 2017-02-18 21:24 | NUR ---
AT BEDSIDE. UPDATE GIVEN. PT COMPLAIN OF PAIN. TREATED WITH PRN MED. POSITIONED PT FOR COMFORT. WILL CONTINUE TO MONITOR.
--- NOTE | 2017-02-18 23:00 | NUR ---
REASSESSMENT COMPLETED. NO ACUTE CHANGE AT THIS TIME. VSS. WEANING DOPAMINE. WILL CONTINUE TO MONITOR.
[2017-02-19] VITALS (54 sets, daily range): BP systolic 99–165; BP diastolic 44–102
--- NOTE | 2017-02-19 01:00 | NUR ---
PT RESTING IN BED. SHOW NO SIGNS OF DISTRESS. WILL CONTINUE TO MONITOR.
--- NOTE | 2017-02-19 03:00 | NUR ---
REASSESSMENT COMPLETED AT THIS TIME. SEE FLOW SHEET FOR FURTHER DETAILS. PT DRINKING ICE WATER HANDLING WELL.
--- NOTE | 2017-02-19 05:00 | NUR ---
PT RESTING WELL. VSS. WILL CONTINUE TO MONITOR.
--- NOTE | 2017-02-19 07:00 | NUR ---
REC'D CARE OF PT. A&O X3.
--- NOTE | 2017-02-19 07:06 | NUR ---
NITRO BACK ON AT 5 CC/HR FOR SBP OF 154.
--- NOTE | 2017-02-19 07:30 | NUR ---
REPOSITIONED FOR COMFORT AND TO PRESERVE SKIN INTEGRITY. ROLLED TO LEFT SIDE AND SUPPORTED WITH PILLOW. DENIES OTHER NEEDS. DENEIS PAIN. CLWR. CPOC.
--- NOTE | 2017-02-19 07:30 | NUR ---
NITRO OFF.SBP 88.
--- NOTE | 2017-02-19 07:38 | NUR ---
requested judy. obliged. wanted pretreated with zofran for nausea. obliged.
--- NOTE | 2017-02-19 08:00 | NUR ---
INITIAL ASSESSMENT COMPLETED PER FLOW SHEET.
--- NOTE | 2017-02-19 08:05 | NUR ---
NITRO BACK ON AT 1 ML/HR FOR SBP OF 150.
--- NOTE | 2017-02-19 08:12 | NUR ---
NITRO BEING TITRATED TO EFFECT.
--- NOTE | 2017-02-19 08:45 | NUR ---
REPOSITINED FOR COMFORT AND TO PRESERVE SKIN INTEGRITY. ROLLED TO RIGHT SIDE AND SUPPORTED WITH PILLOW. CLWR. CPOC.
--- NOTE | 2017-02-19 09:00 | NUR ---
FAMILY AT BEDSIDE. UPDATED.
--- NOTE | 2017-02-19 10:45 | NUR ---
REPOSITIONED FOR COMFORT AND TO PRESEVE SKIN INTEGRITY. PLACED ON BACK. PULLED UP IN BED.
--- NOTE | 2017-02-19 10:47 | NUR ---
PULLS 1500 ON IS
--- NOTE | 2017-02-19 10:58 | NUR ---
MAYORGA DC'D FROM BLADDER. LEFT RADIAL BAKARI DC'D WITH TIP INTACT.
--- NOTE | 2017-02-19 11:31 | NUR ---
DISCUSSED WITH SUSANNE BRODY ABOUT HNT. CONTROLLED WITH 1 CC NITRO/HR BUT WITHOUT IT SBP IS GREATER THAN ESTABLISHED PARAMETERS. SHE REMAISN ON THE 1CC NITRO PER HOUR. SBP 117. SUSANNE BRODY WILL DISCUSS WITH DR. MARIANO AND CALL ME BACK.
--- NOTE | 2017-02-19 11:33 | NUR ---
REASSESSMENT COMPLETED. NO ACUTE CHANGES. NO NEURO CHANGES. SEE REASSESSMENT FLOW SHEET.
[2017-02-19] MEDS ORDERED: LISINOPRIL5 MG PO (12:11)
--- NOTE | 2017-02-19 12:15 | NUR ---
SUSANNE BRODY CALLED. KEEP SBP <160.
--- NOTE | 2017-02-19 12:15 | NUR ---
RD f/u note pt visited and chart reviewed Pt with fair appetite, tolerated clear liquids this morning. per pt may get to go home or be moved today. pt reported nausea last night, morning nurse gave torres to help today no BM though pt says she is passing gas. no chewing/swallowing porblems. on vancomycin and metaformin. Skin WDP, chapis 17, few incisions. pt is s/p l carotid endoartectomy with patch angioplasy. RD to continue to follow. Rec to advance diet as tolerated.
--- NOTE | 2017-02-19 12:40 | NUR ---
REPOSITIONED SELF IN BED. DENIES NEEDS.
--- NOTE | 2017-02-19 13:33 | NUR ---
BP 165/60. SUSTAINED ABOVE ESTABLISHED PARAMETERS. NITRO STARTED AT 1 CC PER HOUR.
--- NOTE | 2017-02-19 13:48 | NUR ---
NITRO BEING TITRATED TO EFFECT.
--- NOTE | 2017-02-19 14:00 | NUR ---
Patient Name: JESSE SHAFFER Admission Status: Elective Accout number: [id number] Admission Date: 02-16-2017 : 1960 Admission Diagnosis: Attending: FANNIE MARIANO Current LOS: 3 Anticipated DC Date: 02-19-2017 Planned Disposition: Home Primary Insurance: UNINSURED DISCOUNT PLAN Discharge Planning Comments: CM met with patient to assess dc plans/needs. Patient states she lives at home with her , Bro. She reports she is independent with all ADL's but does use a walker at times. She has not had home health services in the past. At dc, she will return home with her . No needs identified or verbalized at this time. CM will follow. Dermatology Nurse Practitioner: Diana Hayes
--- NOTE | 2017-02-19 14:09 | NUR ---
VANC 1.5 GR IN 100 IVF WAS INFUSED UNDER VANC 1.25 IN 250 IVF BECAUSE OF NO OPTION TO DO OTHER HOWELL.
--- NOTE | 2017-02-19 14:39 | NUR ---
OOB WITH SHAQUILLE JOYA RT. AMBULATED ABOUT 20 FEET AND BACK TO CHAIR. NEEDS ASSISTANCE WHEN AMBULATING.
--- NOTE | 2017-02-19 15:06 | NUR ---
BP 99/54. PARIS JUAREZ'Eris.
--- NOTE | 2017-02-19 15:08 | NUR ---
FAMILY AT BEDSIDE. UPDATED.
--- NOTE | 2017-02-19 15:35 | NUR ---
SBP 158. NITRO BACK ON AT 2 CC PER HOUR.
--- NOTE | 2017-02-19 16:14 | NUR ---
REMAINS UP TO CHAIR. WANTS BACK TO BED. ENCOURAGED TO STAY UP UNTIL AFTER DINNER. SHE SAID OK. EXPLAINED TO HER THAT SHE NEEDS TO STAY UP, DEEP BREATH AND COUGH.
--- NOTE | 2017-02-19 17:00 | NUR ---
AT BEDSIDE ASSISTING WITH DINNER TRAY.
--- NOTE | 2017-02-19 18:33 | NUR ---
RESTING WITH EYES CLOSED. NITRO BEING TITRATED TO EFFECT.
--- NOTE | 2017-02-19 19:00 | NUR ---
Receuived patient resting in bed with eyes closed, assessment completed per flowsheet. Patient AO x4, calm and cooperative. Eyes PERRLA @ 4mm with brisk response, sclera is white. L neck incision dressing CDI, no bleeding/swelling or difficulty swallowing noted. S1/S2 noted NSR on telemetry with HR 87, rhythmic and regular. Breathing is slightly shallow and unlabored on 2L via NC with O2 sat 99%, lung sounds clear bilateral upper and mid with diminished lower. L upper chest dressing CDI, soft to palpation with no bleeding/drainage noted. Abdomen is round and soft with bowel sounds acive x4, non-tender. Montes secured in place, clear yellow urine noted in collection. Ful ROM all extremities with slight weakness noted, all pulses palpable with cap refill < 3 sec. R subclavian CVL noted, dressing intact and patent. Patient denies pain or other needs at this time, all VSS and will continue to monitor.
--- NOTE | 2017-02-19 23:00 | NUR ---
Reassessment completed per flowsheet, patient resting in bed with eyes open watching TV. S1/S2 noted NSR on telemetry with HR 86, rhythmic and regular. Breathing is slightly shallow on 2L via NC with O2 sat 97%, lung sounds clear bilateral upper and mid with diminished lower. L neck incision dressing CDI, no bleeding/swelling noted with no difficulty swallowing. All pulses palpable with cap refill < 3 sec, skin warm/dry to touch. Patient denies pain or other needs at this time, all VSS and will continue to monitor.
[2017-02-20] VITALS (30 sets, daily range): BP systolic 131–174; BP diastolic 51–69
--- NOTE | 2017-02-20 01:00 | NUR ---
Patient resting in bed with eyes closed, breathing is slightly shallow on 2L via NC with O2 sat 98%. L neck incision dressing CDI, no swelling/bleeding or difficulty swallowing noted. All VSS and will continue to monitor.
--- NOTE | 2017-02-20 03:00 | NUR ---
Reassessment completed per flowsheet, patient resting in bed with eyes closed. S1/S2 noted NSR on telemetry with HR 93, rhythmic and regular. Breathing is slightly shallow on 2L via NC with O2 sat 96%, lung sounds clear bilateral upper and mid with diminished lower. L neck incision dressing CDI, no bleedin/swelling or difficulty swallowing noted. L upper chest dressing CDI, soft to palpation with no bleeding/swelling noted. All pulses palpable with cap refill < 3 sec, skin warm/dry to touch. Patient denies pain or other needs at this time, all VSS and will continue to monitor.
--- NOTE | 2017-02-20 05:00 | NUR ---
Patient resting in bed with eyes closed, breathing is slightly shallow on 2L via NC with O2 sat 96%. L neck incision dressing CDI, no bleeding/drainage or difficulty swallowing noted. L upper chest dressing CDI, soft to palpation with no bleeding/drainage noted. Denies pain or other needs at this time, all VSS and will continue to monitor.
--- NOTE | 2017-02-20 07:00 | NUR ---
REC'D REPORT AND RESUMED CARE, AAO, VSS, O2 VIA NC, LEFT NECK DRESSING CDI, LEFT CHEST CENTRAL LINE INTACT, RIGHT GROIN DRESSING CDI, DENIES PAIN, ASSESSMENT COMPLETE PER FLOWSHEET, CALL LIGHT IN REACH, VOICES NO NEEDS AT THIS TIME
--- NOTE | 2017-02-20 07:35 | NUR ---
BREAKFAST TRAY TO BEDSIDE, INDEPENDENT WITH SET UP AND EATING
--- NOTE | 2017-02-20 08:35 | NUR ---
UP TO BATHROOM, UNSTEADY GAIT WITH AMBULATING, NO DIZZINESS
[2017-02-20] MEDS ORDERED: ASPIRIN81 MG PO (08:40)
--- NOTE | 2017-02-20 09:00 | NUR ---
AM MEDS GIVEN WITHOUT DIFFICULTY, SPOUSE AT BEDSIDE, STATUS UPDATED, VOICES NO NEEDS AT THIS TIME
--- NOTE | 2017-02-20 11:00 | NUR ---
ASSESSMENT COMPLETE, NO ACUTE CHANGE FROM PREVIOUS, AWAITING TO BE DISCHARGED
--- NOTE | 2017-02-20 11:30 | NUR ---
BREAKFAST TRAY TO BEDSIDE, INDEPENDENT WITH SET UP AND EATING
--- NOTE | 2017-02-20 12:15 | NUR ---
DISCHARGED VIA WHEELCHAIR TO CAR WITH SPOUSE, AAO,NO NEEDS AT THIS TIME
--- NOTE | 2017-02-24 20:04 | CN ---
PATIENT NAME:JESSE SHAFFER MEDICAL RECORD: [id number] : 58 LOCATION:[facility].CV02 ADMIT DATE: 02/16/17 ACCOUNT: [id number] CONSULTING PHYSICIAN: DAKOTA CASANOVA MD REFERRING PHYSICIAN: FANNIE CUELLAR MD DATE OF CONSULTATION: 02/19/2017 This consult is requested by Dr. Cuellar to ar for medical management. HISTORY: This is a 56-year-old female who was admitted by Dr. Cuellar for left carotid endarterectomy. She has history of hypertension, hyperlipidemia, and diabetes. She was admitted to [facility] in early November, when she suffered a stroke. Workup then showed bilateral carotid artery stenosis with critical blockage in the left internal carotid and significant blockage in the right internal carotid artery. CT of the head then showed no acute problem. MRI of the brain showed watershed infarct. Neurology and Dr. Cuellar were both consulted at that time. Her surgical risk was lowered if surgery could be put off for 6-8 weeks and she was discharged home. ALLERGIES: PENICILLIN. CURRENT MEDICATIONS: Include Eliquis 5 mg twice a day, Plavix 75 mg once a day, Lipitor 10 mg once a day, lisinopril 5 mg twice a day, tramadol 50 mg q. 6 hours p.r.n. pain, and metformin 1000 mg twice a day. HABITS: She was a current smoker at last visit and hopefully has quit since then. No alcohol or drugs. FAMILY HISTORY: Cancer in one of her parents. PAST SURGICAL HISTORY: She has had appendectomy, back surgery, and wisdom teeth removed. FAMILY HISTORY: Father is alive with hypertension. Mother is alive with leukemia and lupus as well. PHYSICAL EXAMINATION: GENERAL: She is awake and alert. She does not appear to be in acute distress. VITAL SIGNS: Temperature 97.0, pulse 98, respirations 18, blood pressure 176/85, and O2 sat 97%. HEENT: Grossly within normal limits. NECK: Supple. No bruits are heard. HEART: Regular rate and rhythm. LUNGS: Clear. ABDOMEN: Soft. EXTREMITIES: No edema. NEUROLOGIC: She has regained most of her function in arms and legs. LABORATORY DATA: CBC with white count of 10,900, hemoglobin 14, hematocrit 43, and platelets 316,000. INR 0.88. Sodium 140, potassium 4.5, chloride 101, CO2 of 27.3, BUN 19, creatinine 0.7, and glucose is 242. Liver enzymes are all okay. DIAGNOSTIC DATA: Chest x-ray done, showing no significant changes compared with previous x-ray from 12/05/2016. CONSULT REPORT [id number] CLAUDIA SHAFFERAH Hiram ASSESSMENT: 1. Diabetes, uncontrolled. 2. Hypertension. 3. Critical left internal carotid artery stenosis. 4. Significant right internal carotid stenosis. PLAN: We will monitor her blood sugars and blood pressure. Thank you for the consult. We will follow along. TRANSINT:[id number] Voice Confirmation ID: [id number] DOCUMENT ID: [id number] DAKOTA CASANOVA MD at 2003 CC: [id number] DICTATION DATE: 02/19/172199 ENVIRONMENTAL HEALTH SAFETY MANAGER: 02/20/17 0041 DIS IN 02/20/17 [facility] [address] [place] [address]
== END 2017-02-20 12:55 | disposition home or self-care (01) | DRG 39 ==
LOC: D.M2 09:10 → D.CVICU 09:10 → D.SDCHOLD 02-18 12:45 → D.CVICU 02-18 14:26
PROVIDERS: ADMIT Internal Medicine Cardiovascular Disease
PROC: 03UL0JZ Supplement Left Internal Carotid Artery with Synthetic Substitute, Open Approach (ICD-10-PCS; 2017-02-18)
PROC: 03CL0ZZ Extirpation of Matter from Left Internal Carotid Artery, Open Approach (ICD-10-PCS; principal; 2017-02-18 12:45)
DX: I65.23 Occlusion and stenosis of bilateral carotid arteries (principal); E11.65 Type 2 diabetes mellitus with hyperglycemia; I10 Essential (primary) hypertension; E78.00 Pure hypercholesterolemia, unspecified; F17.200 Nicotine dependence, unspecified, uncomplicated

== ENCOUNTER 2017-02-21 11:38 | Inpatient (IN) | payer MEDICAID ==
[~2017-02-21] VITALS: Ht 172.7 cm; Wt 96.1 kg
[2017-02-21] VITALS (23 sets, daily range): BP systolic 91–170; BP diastolic 41–90; BMI 31.6
--- NOTE | ~2017-02-21 | EEG ---
PATIENT:JESSE SHAFFER DATE OF SERVICE: 02/21/17 MEDICAL RECORD: [id number] DATE OF : 58 LOCATION:D.210 D.M2 ADMISSION DATE: 02/21/17 REFERRING PHYSICIAN: INTERPRETING PHYSICIAN: ZORA DOUGLAS MD DATE OF SERVICE: 02/24/2017 REFERRED BY: Myself as an inpatient, currently in room 2308. ELECTROENCEPHALOGRAM NUMBER: [id number] DATE OF EXAMINATION: 02/23/2017 at 9:00 a.m. DATE OF : 1960. TECHNICAL DATA: This electroencephalographic recording consists of approximately 20 minutes of data collection utilizing the international 10/20 system of electrode placement and both referential and non-referential montages. Sixteen channels of electrocerebral recording are accompanied by a 17th channel dedicated to the electrocardiographic rhythm and 2 channels of electromyographic recording. Recording is performed in the awake and drowsy states utilizing activation by photic stimulation. ELECTROENCEPHALOGRAPHIC DATA: The awake state comprises approximately 70% of the recorded electrocerebral activity. Electromyographic artifact is prominent and rapid eye movements are seen. The posterior dominant background consists of a symmetric semi-arrhythmic waxing and waning 8-9 Hz alpha activity, which is suppressed by eye opening. Also seen is an intermittent irregular focal slowing over the left hemisphere that lasts for approximately 2 seconds once every 2-3 pages. The drowsy state comprises the remaining portion of the recorded electrocerebral activity. Electromyographic artifact is diminished and rapid eye movements are not seen. The posterior dominant background is relatively suppressed. No epileptiform discharges are seen. The patient exhibits monophasic brief jerking movements of the right hand, intermittently and irregularly throughout the recording. There is no electrocerebral correlate. Photic stimulation induces no abnormal change in the recorded electrocerebral activity. INTERPRETATION: Intermittent slow, focal, left hemisphere (awake and drowsy). This electroencephalographic recording is indicative of a structural lesion of the left hemisphere. No epileptiform discharges are seen and there is no electrocerebral correlate to the patient's intermittent jerking of the right hand. TRANSINT:[id number] Voice Confirmation ID: [id number] DOCUMENT ID: [id number] ELECTROENCEPHALOGRAM REPORT [id number] JESSE SHAFFER ZORA DOUGLAS MD CC: [id number] DICTATION DATE: 02/24/17 0646 DRAPERY HANGER: 02/24/17 0759 ADM IN [facility] [address] [facility] [place] [address]
[~2017-02-21 11:38] MED LIST changes: +ASPIRIN81 MG PO; +LISINOPRIL5 MG PO
[2017-02-21 11:52] LABS: BASOPHILS 0.2 % (0-2); EOSINOPHILS 1.6 % (0-7); HEMATOCRIT 40.3 % (36.0-48.0); HEMOGLOBIN 12.9 g/dL (12-16); IMMATURE GRANULOCYTES 0.3 % (0-5); LYMPHOCYTES 16.6 % (15-50); MCH 28.7 pg (26.0-34.0); MCV 89.8 fL (80.0-100.0); MEAN PLATELET VOLUME 10.5 fL (7.4-10.4); MONOCYTES 8.6 % (2-11); NEUTROPHILS 72.7 % (40-80); PLATELET COUNT 280 10x3/uL (130-400); RBC 4.49 10x6/uL (4.00-5.40); RDW 13.8 % (11.5-14.5); WBC 11.5 10x3/uL (4.8-10.8)
[2017-02-21 11:55] LABS: APTT 27.1 SECONDS (22.8-39.4); INR 1.05 (0.85-1.17); PROTIME 13.5 SECONDS (11.6-15.0)
[2017-02-21 12:01] LABS: ALBUMIN 3.1 g/dL (3.4-5.0); ALKALINE PHOSPHATASE 86 U/L (46-116); ALT (SGPT) 17 U/L (10-68); BILIRUBIN - TOTAL 0.63 mg/dL (0.2-1.3); CALC OSMOLALITY 288 mosm/kg (275-300); CALCIUM 9.4 mg/dL (8.5-10.1); CHLORIDE - SERUM 104 mmol/L (98-107); CREATININE - SERUM 0.7 mg/dL (0.6-1.3); GLUCOSE 210 mg/dL (74-106); POTASSIUM - SERUM 3.6 mmol/L (3.5-5.1); PROTEIN - SERUM 7.9 g/dL (6.4-8.2); SODIUM 143 mmol/L (136-145); UREA NITROGEN 8 mg/dL (7-18); eGFR NON AFRICAN AMERICAN > 90 mL/min (90-120)
--- NOTE | 2017-02-21 14:20 | NUR ---
ARRIVED TO ICU ROOM 2308 VIA STRETCHER FROM ER WITH ONE ER NURSE, TRANSFERED TO BED VIA THREE STAFF, ALERT ORIENTED X 4, SEE ASSESSMENT FOR INFORMATION.
--- NOTE | 2017-02-21 19:15 | NUR ---
SHIFT ASSESSMENT COMPLETE, PATIENT WAS ASLEEP, AWAKENS TO VOICE. IS LETHARGIC, BUT A&O X4. FOLLOWS COMMANDS. CAN MOVE RIGHT ARM SLIGHTLY AND WEAKLY SQUEEZE RIGHT HAND. NO FACIAL DROOPING SEEN. VSS, NSR ON MONITOR. LUNG SOUNDS CLEAR. PERIPHERAL PULSES +2, BILATERAL. O2 2L VIA NC, O2 SAT 98%. PIV IN RFA FLUSHES EASY, DRESSING C/D/I, SL. AT BEDSIDE, WILL MONITOR.
--- NOTE | 2017-02-21 21:00 | NUR ---
NIGHT MEDS GIVEN WITH WATER WITHOUT DIFFICULTY.
--- NOTE | 2017-02-21 23:08 | NUR ---
PRN LEBATELOL GIVEN FOR BP OF 170 SYSTOLIC.
--- NOTE | 2017-02-21 23:20 | NUR ---
PATIENT PULLED UP IN BED WITH ASSISSTANCE PER REQUESTS. MUCH MORE ALERT NOW. A&OX4, ANSWERS QUESTIONS APPROPRIATELY. STILL HAS DIFFICULTY MOVING RIGHT ARM. STATED SHE HAD WEAKNESS IN IT BEFORE MOST RECENT STROKE.
[2017-02-22] VITALS (24 sets, daily range): BP systolic 101–185; BP diastolic 54–556
--- NOTE | 2017-02-22 01:05 | NUR ---
RESTING WITH EYES CLOSED. VSS. WILL MONITOR.
--- NOTE | 2017-02-22 03:05 | NUR ---
REASSESSMENT COMPLETE, SEE FLOWSHEET FOR FINDINGS. PATIENT A&O, NO NEURO CHANGES. HAVING TROUBLE WITH RUGHT ARM, BUT CAN MOVE IT BETTER. DENIES NEED AT THIS TIME.
[2017-02-22 03:59] LABS: BASOPHILS 0.2 % (0-2); EOSINOPHILS 0.9 % (0-7); HEMATOCRIT 35.5 % (36.0-48.0); HEMOGLOBIN 11.3 g/dL (12-16); IMMATURE GRANULOCYTES 0.1 % (0-5); MCH 28.3 pg (26.0-34.0); MCHC 31.8 g/dL (31.0-37.0); MEAN PLATELET VOLUME 10.6 fL (7.4-10.4); MONOCYTES 8.3 % (2-11); NEUTROPHILS 72.5 % (40-80); PLATELET COUNT 263 10x3/uL (130-400); RBC 3.99 10x6/uL (4.00-5.40); RDW 13.9 % (11.5-14.5); WBC 9.2 10x3/uL (4.8-10.8)
[2017-02-22 04:01] LABS: ALBUMIN 2.6 g/dL (3.4-5.0); ALKALINE PHOSPHATASE 71 U/L (46-116); ALT (SGPT) 14 U/L (10-68); BILIRUBIN - TOTAL 0.28 mg/dL (0.2-1.3); CALC OSMOLALITY 289 mosm/kg (275-300); CALCIUM 8.4 mg/dL (8.5-10.1); CARBON DIOXIDE 27.6 mmol/L (21.0-32.0); CHLORIDE - SERUM 106 mmol/L (98-107); CREATININE - SERUM 0.7 mg/dL (0.6-1.3); GLUCOSE 233 mg/dL (74-106); POTASSIUM - SERUM 3.8 mmol/L (3.5-5.1); PROTEIN - SERUM 6.2 g/dL (6.4-8.2); SODIUM 142 mmol/L (136-145); eGFR NON AFRICAN AMERICAN > 90 mL/min (90-120)
[2017-02-22 04:03] LABS: UREA NITROGEN 13 mg/dL (7-18)
--- NOTE | 2017-02-22 05:00 | NUR ---
DENIES NEED AT THIS TIME. VSS
--- NOTE | 2017-02-22 09:36 | NUR ---
AWAKE, ALERT AND ORIENTED. WATCHING TV, DENIES ANY NEEDS AT PRESENT, CALL LIGHT IN REACH.
--- NOTE | 2017-02-22 11:47 | NUR ---
ORDER RECD. TO HOLD METFORMIN FOR 48 HOURS DUE TO RECIEVING CONTRAST MEDIA FOR CT.
--- NOTE | 2017-02-22 19:20 | NUR ---
ASSESSMENT COMPLETE. S1S2. NSR SHOWING ON MONITOR. ROOM AIR. SHALLOW RR; UNLABORED. DIMINISHED BILATERALLY IN LOWER LOBES. BOWEL SOUNDS ACTIVE X4; NON TENDER. MAYORGA IN PLACE; YELLOW URINE. RIGHT AC PIV; SL; PATENT. SCD IN PLACE. AAO. FOLLOWS COMMANDS. TONGUE MIDLINE. WEAKNESS NOTED TO FRUIT GRADING SUPERVISOR STRENGTH. RIGHT FRUIT GRADING SUPERVISOR +2; LEFT FRUIT GRADING SUPERVISOR +3. PERRLA; 3MM BRISK. PREVIOUS INCISION SITE TO LEFT NECK. BUTTOCKS REDDENED; BLANCHES.
--- NOTE | 2017-02-22 21:30 | NUR ---
FAMILY AT BEDSIDE. UPDATE GIVEN.
--- NOTE | 2017-02-22 21:53 | NUR ---
PT C/O HEADACHE. REQUESTED TYLENOL. ADM PER ORDERS. SEE EMAR FOR DETAILS.
--- NOTE | 2017-02-22 23:05 | NUR ---
REASSESSMENT COMPLETE. NO ACUTE CHANGES FROM PREVIOUS ASSESSMENT. VSS. NO SEIZURE LIKE ACTIVITIY NOTED. WILL CONTINUE TO MONITOR.
[2017-02-23] VITALS (17 sets, daily range): BP systolic 98–194; BP diastolic 61–122; Ht 172.7 cm; Wt 96.1 kg
--- NOTE | 2017-02-23 01:00 | NUR ---
PT HAVING DIFFICULTY FALLING ASLEEP. REMAINS AWAKE AND ALERT.
--- NOTE | 2017-02-23 02:40 | NUR ---
PT C/O TINGLING IN FEET. STATED WHEN FEELS LIKE THIS BLOOD SUGAR USUALLY HIGH. CHECKED BLOOD SUGAR; 210. WILL MONITOR.
--- NOTE | 2017-02-23 03:05 | NUR ---
REASSESSMENT COMPLETE. NO ACUTE CHANGES FROM PREVIOUS ASSESSMENT. VSS. NO DISTRESS NOTED.
[2017-02-23 06:08] LABS: BASOPHILS 0.4 % (0-2); EOSINOPHILS 2.2 % (0-7); HEMATOCRIT 35.3 % (36.0-48.0); HEMOGLOBIN 11.2 g/dL (12-16); IMMATURE GRANULOCYTES 0.1 % (0-5); LYMPHOCYTES 20.7 % (15-50); MCH 28.3 pg (26.0-34.0); MCHC 31.7 g/dL (31.0-37.0); MCV 89.1 fL (80.0-100.0); MEAN PLATELET VOLUME 10.5 fL (7.4-10.4); MONOCYTES 8.5 % (2-11); NEUTROPHILS 68.1 % (40-80); PLATELET COUNT 290 10x3/uL (130-400); RBC 3.96 10x6/uL (4.00-5.40); RDW 13.9 % (11.5-14.5); WBC 7.7 10x3/uL (4.8-10.8)
[2017-02-23 06:27] LABS: ALBUMIN 2.8 g/dL (3.4-5.0); ALKALINE PHOSPHATASE 63 U/L (46-116); ALT (SGPT) 15 U/L (10-68); CALC OSMOLALITY 293 mosm/kg (275-300); CALCIUM 8.9 mg/dL (8.5-10.1); CARBON DIOXIDE 27.8 mmol/L (21.0-32.0); CHLORIDE - SERUM 107 mmol/L (98-107); CREATININE - SERUM 0.6 mg/dL (0.6-1.3); GLUCOSE 213 mg/dL (74-106); MAGNESIUM - SERUM 1.6 mg/dL (1.8-2.4); POTASSIUM - SERUM 3.3 mmol/L (3.5-5.1); PROTEIN - SERUM 6.1 g/dL (6.4-8.2); SODIUM 144 mmol/L (136-145); UREA NITROGEN 14 mg/dL (7-18); eGFR NON AFRICAN AMERICAN > 90 mL/min (90-120)
--- NOTE | 2017-02-23 08:28 | NUR ---
PT AWAKE AND ALERT, EATING BREAKFAST, BP 164/89. NSR ON CM. SPOKE TO MRI AND FRIED CAKE MAKER FOR POC FOR TODAY. DR DOUGLAS HERE THIS AM.
--- NOTE | 2017-02-23 12:08 | NUR ---
BP 180/100, CALLED AND REPORTED THAT LABETELOL DCD AND BP HIGH. REC'D ORDER FOR CLONIDINE.
--- NOTE | 2017-02-23 17:34 | NUR ---
PT ATE DINNER SITTING ON SIDE OF BED. REPORT CALLED TO FLOOR NURSING STAFF. WILL TRANSFER OUT TO THE FLOOR.
--- NOTE | 2017-02-23 18:11 | NUR ---
ARRIVE TO ROOM FROM ER VIA WHEELCHAIR ACCOMPAINIED BY SPOUSE AND NURSE. ALERT AND ORIENTED X4. ASSIST OUT OF WHEELCHAIR TO BED WITH MINIMAL ASSIST. MAYORGA DRAINING AT BEDSIDE. SECURED TO SIDE OF LEG. URINE BERNADETTE. RT ARM WEAKNESS AND LIMITED ROM. DENIES ANY NEEDS. TAKES ELIQUIS. REFUSE SCDs. BED LOCKED AND LOW. CALL LIGHT IN REACH. TWO SIDERAILS UP.
--- NOTE | 2017-02-23 19:48 | NUR ---
RECEIVED REPORT, WILL ASSUME CARE OF PT, PT VISITING WITH FAMILY, DENIES ANY NEEDS AT THIS TIME, BED IS LOW, SRX2, CALL LIGHT IN REACH, WILL CONTINUE PLAN OF CARE
[2017-02-24 01:15] VITALS: BP 216/80
--- NOTE | 2017-02-24 03:35 | NUR ---
GAVE TYLENOL FOR HEADACHE ORDERED, WILL CONTINUE TO MONITOR
[2017-02-24 03:45] VITALS: BP 152/71
[2017-02-24 04:57] LABS: BASOPHILS 0.5 % (0-2); EOSINOPHILS 2.9 % (0-7); HEMATOCRIT 33.7 % (36.0-48.0); HEMOGLOBIN 10.7 g/dL (12-16); IMMATURE GRANULOCYTES 0.1 % (0-5); LYMPHOCYTES 32.5 % (15-50); MCH 28.1 pg (26.0-34.0); MCHC 31.8 g/dL (31.0-37.0); MCV 88.5 fL (80.0-100.0); MEAN PLATELET VOLUME 10.2 fL (7.4-10.4); MONOCYTES 9.5 % (2-11); NEUTROPHILS 54.5 % (40-80); PLATELET COUNT 297 10x3/uL (130-400); RBC 3.81 10x6/uL (4.00-5.40); RDW 13.9 % (11.5-14.5); WBC 7.6 10x3/uL (4.8-10.8)
[2017-02-24 05:30] LABS: ALBUMIN 2.6 g/dL (3.4-5.0); ALKALINE PHOSPHATASE 66 U/L (46-116); ALT (SGPT) 18 U/L (10-68); BILIRUBIN - TOTAL 0.28 mg/dL (0.2-1.3); CALC OSMOLALITY 283 mosm/kg (275-300); CALCIUM 8.6 mg/dL (8.5-10.1); CHLORIDE - SERUM 106 mmol/L (98-107); CREATININE - SERUM 0.6 mg/dL (0.6-1.3); MAGNESIUM - SERUM 1.6 mg/dL (1.8-2.4); POTASSIUM - SERUM 3.4 mmol/L (3.5-5.1); PROTEIN - SERUM 6.4 g/dL (6.4-8.2); SODIUM 141 mmol/L (136-145); UREA NITROGEN 12 mg/dL (7-18); eGFR NON AFRICAN AMERICAN > 90 mL/min (90-120)
[2017-02-24 05:35] LABS: GLUCOSE 154 mg/dL (74-106)
--- NOTE | 2017-02-24 07:07 | NUR ---
AM ROUNDS- PT IN BED, REQUESTED A CUP OF ICE WATER. WILL PROVIDED PT WITH A CUP OF WATER. RESP EVEN AND UNLABORED. LT AC SL, MAYORGA DRAINING TELLOW URINE TO GRAVITY. BED LOW AND WHEELS LOCKED, BEDSIDE RAILS X2, CALL LIGHT IN REACH, AT BEDSIDE, NAD NOTED, WILL CONTINUE TO MONITOR.
[2017-02-24 08:00] VITALS: BP 140/70
--- NOTE | 2017-02-24 08:51 | NUR ---
AM MEDS GIVEN AT THIS TIME, ALSO GAVE 1000MG OF TYLENOL FOR PAIN LEVELOF 7/10. PT IN BED, DENIES ANY NEEDS AT THIS TIME. CALL LIGHT IN REACH, RAINE PEARL, WILL CONTINUE TO MONITOR.
--- NOTE | 2017-02-24 10:20 | NUR ---
Rehab Note-Acute Rehab Prescreen order received. The patient has Medicaid and does not have acute rehab benefits. Thank you for this referral! Gini Booker RN Clinical Liaison, [facility] Rehab
--- NOTE | 2017-02-24 11:38 | NUR ---
BLOOD SUGAR OF 240, 8UNITS OF HUMALOG GIVEN PER S/S. PT IN BED, RUBY ON RAILS DEVELOPER AT BEDSIDE TO DO VITAL SIGNS. PT DENIES ANY NEEDS A THIS TIME. CALL LIGHT IN REACH, NAD NOTED, WILL CONTINUE TO MONITOR.
[2017-02-24 12:00] VITALS: BP 170/66
--- NOTE | 2017-02-24 14:40 | NUR ---
Patient Name: JESSE SHAFFER Admission Status: ER Accout number: [id number] Admission Date: 02-21-2017 : 1960 Admission Diagnosis: Attending: DAKOTA CASANOVA Current LOS: 3 Anticipated DC Date: 02-25-2017 Planned Disposition: Inpatient Rehab Primary Insurance: MEDICAID [place] PLANNED EXTERNAL PROVIDER: [facility] INPATIENT REHAB Discharge Planning Comments: * Is the patient Alert and Oriented? Yes 0 * How many steps to enter\exit or inside your home? 2 0 * PCP DR. CASANOVA 0 * Pharmacy [facility] 0 * Preadmission Environment Home with Family 0 * ADLs Independent 0 * Equipment Bedside Commode Walker 0 * Other Equipment NO MEDICAL EQUIPMENT PROVIDER PREFERENCE 0 * List name and contact numbers for known caregivers / representatives who currently or will assist patient after discharge: ES SHAFFER, SPOUSE, 0 * Community resources currently utilized None 0 * Please name any agencies selected above. NONE 0 * Additional services required to return to the preadmission environment? Yes * Can the patient safely return to the preadmission environment? Yes 0 * Has this patient been hospitalized within the prior 30 days at any hospital? Yes 0 CM RECEIVED ORDER FOR INPATIENT REHAB PRESCREENING. CM MET WITH PT IN ROOM TO DISCUSS DISCHARGE PLANNING AND NEEDS. PT REPORTS LIVING AT HOME INDEPENDENTLY WITH HER SPOUSE. PT HAS BEDSIDE COMMODE AND WALKER WITH NO MEDICAL EQUIPMENT PROVIDER . PT HAS NO OUTSIDE SERVICES ASSISTING IN THE HOME. CM DISCUSSED AVAILABILITY OF HOME HEALTH, REHAB SERVICES AND MEDICAL EQUIPMENT. PT WOULD LIKE INPATIENT REHAB IF MEDICAID WILL COVER IT. CM EXPLAINED THAT IF PT HAS ADEQUATE BENEFIT, THE ONLY SPARKS PROVIDER IS [facility]; PT REQUESTED REFERRAL TO [facility]. PT DECLINES TEACHER LIP READING CARE PLACEMENT IN CORRECTION AND REPORTS SHE WILL GO HOME AND WILL CONSIDER HOME HEALTH IF DENIED BY INPATIENT REHAB. PT REPORTS HER SPOUSE WILL PICK HER UP FOR DISCHARGE HOME. CM CALLED MARIMAR AT [facility], , DISCUSSED REFERRAL; CM FAXED REFERRAL TO [facility] AT [phone]. CM WAITING MEDICAID BENEFITS REVIEW AND INPATIENT REHAB SCREENING BY [facility] INPATIENT RE[facility]. Stapler Machine: Alfred Yancey
[2017-02-24 16:00] VITALS: BP 146/64
--- NOTE | 2017-02-24 17:00 | NUR ---
BLOOD SUGAR OF 215, 8UNITS OF HUMALOG GIVEN PER S/S. ALSO GAVE 1000MG OF TYLENOL FOR PAIN LEVEL OF 7/10. PT DENIES ANY OTHER NEEDS AT THIS TIME. CALL LIGHT IN REACH, NAD NOTED, WILL CONTINUE TO MONITOR.
--- NOTE | 2017-02-24 17:08 | NUR ---
Patient Name: JESSE SHAFFER Encounter No: [id number] : 1960 Primary Insurance: MEDICAID [facility] DC Date: 02-25-2017 Planned Disposition: Inpatient Rehab External Planned Provider: [facility] INPATIENT REHAB DCP follow-up note: CM RECEIVED CALL FROM MARIMAR OF [facility], , WHO ADVISED THAT THEY NEED AN OT EVALUATION SOON POSSIBLE AND CAN ACCEPT PT TOMORROW, 02-25-17 FOR INPATIENT REHAB. DUE TO NUMBER OF PT'S MEDICAID DAYS USED, THEY CANNOT ACCEPT PT AFTER 02-25-17. CM SPOKE TO PT WHO IS IN AGREEMENT WITH DISCHARGE TO [facility] INPATIENT REH[facility]. FOR DISCHARGE TO [facility] IN[facility] ON 02-25-17, FAX DISCHARGE INFORMATION AND JUL OR 02-25 TO [phone]. NURSE REPORT TO BE CALLED TO [facility] AT [phone]. [facility] TO ARRANGE VAN TRANSPORTATION. Alfred Yancey, CASE MANAGEMENT
--- NOTE | 2017-02-24 19:50 | NUR ---
FAMILY MEMBER TALKS TO PT AT BEDSIDE.
--- NOTE | 2017-02-24 20:04 | HP ---
PATIENT: JESSE SHAFFER MEDICAL RECORD: [id number] ACCOUNT: [id number] LOCATION:[address] : 58 ADMISSION DATE: 02/21/17 HISTORY AND PHYSICAL EXAMINATION DATE OF ADMISSION: 02/21/2017 CHIEF COMPLAINT: Speech problems, cannot move right side well. HISTORY OF PRESENT ILLNESS: This is a 56-year-old female who was admitted recently and discharged on 02/20/2017, by Dr. Cuellar for left carotid endarterectomy. She was admitted to [facility] in early November when she suffered a stroke workup and showed bilateral carotid artery stenosis with critical blockage in the left internal carotid and significant blockage of the right internal carotid. MRI of brain showed watershed infarct. She was sent home on appropriate medications and admitted back for the carotid endarterectomy and she was doing well postoperatively and discharged home on Eliquis, Plavix, and aspirin. She had acute onset this morning of speech deficit, right-sided weakness, worse in the right upper extremity than the left. It was also noted in the Emergency Department that she had a seizure in the right upper extremity, face and neck area. The patient was loaded with Keppra and she is now admitted to the ICU for closer monitoring. Her blood pressure in the ER was 245/94. PAST MEDICAL AND SURGICAL HISTORY: Poorly controlled diabetes, hypertension, hyperlipidemia, stroke in November of this year with critical left internal carotid stenosis and significant right internal carotid stenosis. PAST SURGICAL HISTORY: Appendectomy, cervical spine surgery, wisdom teeth removed and a recent carotid endarterectomy by Dr. Cuellar. ALLERGIES: PENICILLIN. HOME MEDICATIONS: Tramadol 50 mg p.r.n., Eliquis 5 mg twice a day, Plavix 75 mg once a day, aspirin 81 mg once a day, Lipitor 10 mg once a day, metformin 1000 mg twice a day, and lisinopril 5 mg twice a day. HABITS: Recently quit smoking, no alcohol or drugs. FAMILY HISTORY: Significant for cancer. Father has hypertension and is alive. Mother is alive with leukemia and lupus. REVIEW OF SYSTEMS: Difficult to obtain due to her speech problems, but really: GENERAL: No major weight changes. HEENT: No particular sinus or allergy problems. RESPIRATORY: No history of emphysema or asthma. CARDIAC: No history of coronary artery disease or palpitations. GASTROINTESTINAL: No diarrhea or constipation. GENITOURINARY: She has had an occasional UTI. NEUROLOGIC: Stroke as above. No history of seizures. PSYCHIATRIC: Denies depression or melancholia. PHYSICAL EXAMINATION: VITAL SIGNS: Blood pressure initially when she got to the ER was 245/94. In the ICU, she has been afebrile, heart rate in upper 70s, lower 80s, blood pressure is 123/54. HISTORY AND PHYSICAL [id number] JESSE SHAFFER GENERAL: She will awaken and try to speak. She has had some difficulty saying a few words. HEENT: Otherwise is unremarkable. NECK: Supple. No thyromegaly. She has a new scar on the left anterior neck consistent with previous endarterectomy by Dr. Cuellar just a few days ago. HEART: Regular rate and rhythm without murmur. LUNGS: Fairly clear. ABDOMEN: Soft. EXTREMITIES: No edema. NEUROLOGIC: She has trouble finding the right word with a little slurring. Lining Stuffer on the right is decreased compared with the left. Right lower extremity is diminished somewhat compared to the left. IMAGING STUDIES: CT of the head shows interval development of decreased attenuation in the left frontal, parietal, and temporal lobes with loss of underwood-white matter differentiation, suggesting acute stroke. EKG accelerated junctional rhythm, rate of 100. LABORATORY DATA: Glucose 250 range. CBC with a white count of 11,500, hemoglobin 12.9, hematocrit 40.3, platelets number 280,000. INR 1.05. Basic metabolic panel is totally normal except glucose was high at 210. Liver functions are all high, albumin is 3.1. Chest x-ray done today shows minimal atelectasis versus scarring in the lung bases. CT was suboptimal secondary to patient motion and there was interval development of decreased attenuation in the left frontal, parietal, and temporal lobes with loss of underwood-white matter differentiation concerning for acute ischemic stroke. ASSESSMENT: 1. Left frontoparietal and temporal lobe cerebrovascular accident. 2. Focal motor seizure activity. 3. Hypertension. 4. Poorly controlled diabetes. PLAN: Dr. Quintanilla has been consulted. The patient is started on Keppra, monitoring blood pressure. Carotid Doppler ultrasound actually was already done and the left internal carotid shows possible 50-69% stenosis there and significantly decreased blood flow to the right vertebral artery and near complete occlusion of the right internal carotid artery. She was not eligible for TPA. We will monitor in the ICU. Other tests and procedures as warranted. TRANSINT:[id number] Voice Confirmation ID: [id number] DOCUMENT ID: [id number] DAKOTA CASANOVA MD at 2004 CC: [id number] DICTATION DATE: 02/21/172027 BILL OF LADING CLERK: 02/21/172155 ADM IN [id number] [place] [address]
[2017-02-24 21:26] VITALS: BP 161/63
--- NOTE | 2017-02-24 23:51 | NUR ---
PT C/O HEADACHE, AT A LEVEL OF 10, TYLENOL GIVEN.
--- NOTE | 2017-02-25 03:08 | NUR ---
PT AWAKE, ALERT, NEEDING PULLED UP IN BED, SERVICE PROVIDER AND WOLF HUNTER DID ASSIST PT TO HEAD OF BED AND REPOSITIONED. CONTINUE TO MONITOR. FAMILY AT BEDSIDE. BED LOW, CALL LIGHT IN REACH, SIDE RAILS X 2, HOB 20 DEGREES.
--- NOTE | 2017-02-25 04:38 | NUR ---
REST IN BED, EYE CLOSE, CALL LIGHT IN REACH.
[2017-02-25 06:36] LABS: ALBUMIN 2.8 g/dL (3.4-5.0); ALKALINE PHOSPHATASE 71 U/L (46-116); ALT (SGPT) 15 U/L (10-68); CARBON DIOXIDE 28.2 mmol/L (21.0-32.0); CHLORIDE - SERUM 106 mmol/L (98-107); CREATININE - SERUM 0.6 mg/dL (0.6-1.3); MAGNESIUM - SERUM 1.6 mg/dL (1.8-2.4); POTASSIUM - SERUM 3.6 mmol/L (3.5-5.1); PROTEIN - SERUM 6.6 g/dL (6.4-8.2); SODIUM 142 mmol/L (136-145); eGFR NON AFRICAN AMERICAN > 90 mL/min (90-120)
[2017-02-25 06:41] LABS: CALC OSMOLALITY 292 mosm/kg (275-300); GLUCOSE 238 mg/dL (74-106); UREA NITROGEN 17 mg/dL (7-18)
[2017-02-25 06:42] LABS: BASOPHILS 0.4 % (0-2); EOSINOPHILS 1.8 % (0-7); HEMOGLOBIN 10.8 g/dL (12-16); IMMATURE GRANULOCYTES 0.1 % (0-5); LYMPHOCYTES 21.3 % (15-50); MCH 28.1 pg (26.0-34.0); MCHC 31.8 g/dL (31.0-37.0); MCV 88.5 fL (80.0-100.0); MEAN PLATELET VOLUME 10.4 fL (7.4-10.4); MONOCYTES 7.2 % (2-11); NEUTROPHILS 69.2 % (40-80); PLATELET COUNT 316 10x3/uL (130-400); RBC 3.84 10x6/uL (4.00-5.40); RDW 13.8 % (11.5-14.5); WBC 8.5 10x3/uL (4.8-10.8)
--- NOTE | 2017-02-25 07:19 | NUR ---
AM ROUNDS- PT IN BED, C/O OF PAIN LEVEL OF 5/10 TO HEAD. ASKING FOR TYLENOL. WILL CHECK TO SEE IF PT CAN HAVE TYLENOL NOW AND PROVIDE PT WITH IT. PT DENIES ANY OTHER NEEDS AT THIS TIME. RESP EVEN AND UNLABORED, RT MELANIE MAYORGA DRAINING TO GRAVITY, BED LOW AND WHEELS LOCKED, BEDSIDE RAILS X2, CALL LIGHT IN REACH, AT BEDSIDE, NAD NOTED, WILL CONTINUE TO MONITOR.
[2017-02-25 07:59] VITALS: BP 179/56
--- NOTE | 2017-02-25 08:39 | NUR ---
AM MEDS GIVEN, ALSO GAVE 0.1MG OF CLONODIN FOR SYSTOLIC BP GREATER THAN 170. HELPED PT TO REPOSITION IN BED, PT STATES PAIN LEVEL NOW 2/10. DENIES ANY NEEDS AT THIS TIME. CALL LIGHT IN REACH, NAD NOTED, WILL CONTINUE TO MONITOR.
--- NOTE | 2017-02-25 11:28 | NUR ---
BLOOD SUGAR OF 214, 8UNITS OF HUMALOG GIVEN PER S/S. PT IN BED, DENIES ANY NEEDS AT THIS TIME. CALL LIGHT IN REACH, NAD NOTED,W ILL CONTINUE TO MONITOR.
[2017-02-25 12:03] VITALS: BP 107/60
--- NOTE | 2017-02-25 12:34 | NUR ---
OT EVAL PENDING. TC TO PHYSICAL THERAPY. OT CONSULT WILL BE DONE THIS EARLY AFTERNOON. TC TO [facility] AND SPOKE WITH CRISTO TO UPDATE. SPOKE WITH PRIMARY NURSE, RIOS, REGARDING SERUM Mg+ level. CM TO FOLLOW TO FACILITATE DISCHARGE PLAN APPROPRIATE.
--- NOTE | 2017-02-25 13:49 | NUR ---
FAXED OT EVALUATION , CONSULTANTS NOTES & RECENT LABS TO [facility]. DR CASANOVA PRESENTLY ON SITE TO EVALUATE FOR DISCHARGE TO REHAB. HE IS AWARE OF Mg + LEVEL. WILL NOTIFY CRISTO OF DECISION WHEN AVAILABLE.
[2017-02-25] MEDS ORDERED: LISINOPRIL10 MG PO (13:57)
[2017-02-25] MEDS ORDERED: MAG-OX 400 MG400 MG PO (13:59)
[2017-02-25] MEDS ORDERED: KEPPRA500 MG PO (13:59)
--- NOTE | 2017-02-25 14:03 | NUR ---
MAYORGA CATHETER REMOVED AT THIS TIME, PT TOLERATED PROCEDURE WELL. NUCLEAR WEAPONS MECHANICAL SPECIALIST PROVIDED PT WITH BEDSIDE COMMODE TO SEE IF PT CAN HAVE A BM. AT BEDSIDE WILL ASSIST PT TO BEDSIDE COMMODE. PT DENIES ANY NEEDS AT THIS TIME. CALL LIGHT IN REACH, NAD NOTED, WILL CONTINUE TO MONITOR.
--- NOTE | 2017-02-25 15:19 | NUR ---
[facility]ED [facility] AT [facility] AND REPORT GIVEN TO ATUL FLOYD, NURSE WHO WILL BE TAKING CARE OF PT. FAXED COPY OF EMAR TO [phone].
[2017-02-25 16:00] VITALS: BP 147/56
--- NOTE | 2017-02-25 16:30 | NUR ---
PT LEFT UNIT VIA WHEELCHAIR, ACCOMPANIED BY [facility] STAFF. NAD NOTED.
--- NOTE | 2017-02-25 18:31 | NUR ---
Late Entry 1513 CM RECEIVED BED ASSIGNMENT FOR PATIENT TO ROOM 305 AT [facility]. TRANSPORTATION PROVIDED BY [facility] BETWEEN 1600- 1630. PRIMARY NURSE, RIOS, CALLED REPORT & FAXED DISCHARGE MED LIST/ MAR PER REQUEST.
== END 2017-02-25 16:31 | DRG 65 ==
LOC: D.ER 11:38 → D.M2 13:47 → D.ICU 13:47 → D.M2 02-23 17:50
PROVIDERS: Emergency Medicine; ADMIT Family Medicine
DX: I63.512 Cerebral infarction due to unspecified occlusion or stenosis of left middle cerebral artery (principal); G81.91 Hemiplegia, unspecified affecting right dominant side; G40.89 Other seizures; E11.9 Type 2 diabetes mellitus without complications; I10 Essential (primary) hypertension; E78.5 Hyperlipidemia, unspecified; G83.84 Todd's paralysis (postepileptic); I65.23 Occlusion and stenosis of bilateral carotid arteries; R40.2363 Coma scale, best motor response, obeys commands, at hospital admission; R40.2143 Coma scale, eyes open, spontaneous, at hospital admission; R40.2253 Coma scale, best verbal response, oriented, at hospital admission; Z86.73 Personal history of transient ischemic attack (TIA), and cerebral infarction without residual deficits; Z87.891 Personal history of nicotine dependence

== ENCOUNTER 2017-06-17 07:30 | Inpatient (IN) | payer MEDICAID ==
[~2017-06-17] VITALS: Ht 172.7 cm; Wt 94.1 kg
--- NOTE | ~2017-06-17 | CN ---
PATIENT NAME:JESSE SHAFFER MEDICAL RECORD: [id number] : 58 LOCATION:[facility].CV03 ADMIT DATE: 06/22/17 ACCOUNT: [id number] CONSULTING PHYSICIAN: DAKOTA CASANOVA MD REFERRING PHYSICIAN: FANNIE MARIANO MD DATE OF CONSULTATION: 06/22/2017 Medical Management This is requested by Dr. Mariano for her medical management. HISTORY OF PRESENT ILLNESS: This is a 56-year-old female who was admitted for right carotid endarterectomy by Dr. Mariano. She has a history of diabetes, hypertension, and hyperlipidemia. She suffered a stroke in November of 2016 with a critical left internal carotid stenosis and significant right internal carotid stenosis. She had a left carotid endarterectomy by Dr. Mariano in January 2017, then was readmitted a day or two later after suffering another stroke at that time. She had acute speech deficit, could not use her right arm and hand very well. There was a report of seizure activity as well. She was discharged to inpatient rehab and then home. She has regained her speech and regained a lot of fine motor skills with her right hand and arm. PAST SURGICAL HISTORY: Also includes appendectomy, cervical spine surgery, wisdom teeth removed. ALLERGIES: PENICILLIN. HABITS: Former smoker, no alcohol or drugs. FAMILY HISTORY: Significant for cancer. Father has hypertension and is alive. Mother with leukemia and lupus and is alive. HOME MEDICATIONS: Include Tramadol 50 mg 1 p.o. q.6 hours p.r.n. for pain, Plavix 75 mg once a day, Eliquis 5 mg b.i.d., atorvastatin 10 mg once a day, lisinopril 20 mg once a day, aspirin 81 mg once a day, Keppra 500 mg 1 in the morning, 2 in the evening, Mag-Ox 400 mg daily, metformin 1000 mg twice a day, regular insulin 5 units subQ with each meal. REVIEW OF SYSTEMS: GENERAL: She has lost 75 to 80 pounds since CVA last year. CARDIAC: No known history of coronary artery disease. RESPIRATORY: No palpitations. PULMONARY: No shortness of breath, no cough, no COPD, or asthma. GASTROINTESTINAL: No diarrhea, constipation, or change in bowel habits. GENITOURINARY: No significant problems there. MUSCULOSKELETAL: Has pain mostly in hands. NEUROLOGIC: She has had 2 strokes with little residual now. She had possible seizure activity with the second stroke in January and is on medicine for that. PSYCHIATRIC: Denies depression or melancholia. PHYSICAL EXAMINATION: VITAL SIGNS: Temperature 98.1, pulse 95, respirations 12, blood pressure 165/55, O2 sat 95%. GENERAL: She is awake and alert, does not appear to be in acute distress. CONSULT REPORT [id number] JESSE SHAFFER HEENT: Grossly within normal limits. NECK: Supple, well healed scar on the left. HEART: Regular rate and rhythm. LUNGS: Fairly clear. ABDOMEN: Soft. EXTREMITIES: No edema. NEUROLOGIC: She has much better use of her right arm and hand and fine motor skills now compared to January. LABORATORY DATA: Today, she had a CBC showing a white count 9800 with a hemoglobin of 6.9, hematocrit 25.7, platelet count 443. INR 1.0. Basic metabolic panel is all essentially normal except glucose high at 178. Liver enzymes were all normal. ASSESSMENT: 1. Diabetes. 2. Carotid occlusive disease. 3. New onset anemia with hemoglobin of 6.9. PLAN: We will monitor her sugar and blood pressure. Dr. Palumbo has been consulted for this anemia and workup is in progress. Other tests and procedures as warranted. We will follow during her hospitalization. Thank you for the consult. TRANSINT:[id number] Voice Confirmation ID: [id number] DOCUMENT ID: [id number] DAKOTA CASANOVA MD at 2006 CC: [id number] DICTATION DATE: 06/22/171921 PRECISION HONING MACHINE OPERATOR: 06/22/17 2317 ADM IN [id number] [place] [address]
--- NOTE | ~2017-06-17 | HP ---
PATIENT: JESSE SHAFFER MEDICAL RECORD: [id number] ACCOUNT: [id number] LOCATION:[facility] : 58 ADMISSION DATE: 06/24/17 HISTORY AND PHYSICAL EXAMINATION JESSE Brice (56yo, F) ID# [id number]. Date/Time05/29/2017 09:44EFKWL96/30/1961Service Dept.NPP_[facility] ClinicProviderEDMARION MARIANO MDInsuranceMed Primary[place] Insurance # : [id number] Employer Name : DISABLED Med : [place] Insurance # : [id number] Prescription: CMX - Member is eligible. Prescription: [facility] MEDICAID ADMINISTRATION - Member is eligible. Chief Complaint Followup: Carotid artery stenosis S/P [facility] 02/18/17 FOLLOWING [facility] TWO MONTH F/U Patient's Care Team Primary Care Provider: DAKOTA CASANOVA MD: [address] [place] [address], , Other: ZORA DOUGLAS MD: [address] [place] [address], , Vitals BP:134/54 sitting L arm 05/29/2017 10:46 amBP Cuff Size:adult 05/29/2017 10:46 amHR:96,REG 05/29/2017 10:46 amHt:5 ft 8 in 05/29/2017 10:42 amWt:205 lbs 05/29/2017 10:46 amNotes:DOING BETTER 05/29/2017 10:46 amBMI:31.2 05/29/2017 10:46 amAllergies Reviewed Allergies PENICILLINSSome allergies listed in Document: #[id number] could not be added to this patient's chart. Please review this document and add these allergies to the patient's chart manually as needed.Medications Reviewed Medications atorvastatin 10 mg tablet TK 1 T PO QD05/07/17 cblnxvEgjdlxxnqcjffbgrai-akhblclnnderd-ycyhilll 50 mg-325 mg-40 mg tablet TK 1 T PO Q 4 H PRN P10 filledsurescriptsclopidogrel 75 mg tablet TK 1 T PO QD05/07/17 filledCaremarkEliquis 5mg twice daily12/30/[address] 5 mg tablet TK 1 T PO BID05/07/17 filledCaremarklevETIRAcetam 500 mg tablet TK 1 T PO BID03/07/17 filledsurescriptslisinopril 20 mg tablet TK 1 T PO D107/29/16 filledCaremarkmetFORMIN 1,000 mg tablet TK 1 T PO BID WITH MEALS02/11/17 filledsurescriptsmetFORMIN 500 mg zqgevj78/04/17 filledCaremarktraMADol 50 mg tablet TK 1 T PO Q 4 H PRN 05/27/17 vxulajGqamttteQncvjt53/01/[address]Vaccines [address]ed Vaccines Some vaccines listed in Document: #[id number] could not be added to this patient's chart. Please review this document and add these vaccines to the patient's chart manually as needed. Problems Reviewed Problems Carotid artery stenosis - Onset: 12/30/2016 HISTORY AND PHYSICAL [id number] JESSE SHAFFER Family History Reviewed Family History Father- Malignant neoplastic diseaseMother- Malignant neoplastic diseaseSocial History Reviewed Social History Cardiology Family history of heart disease?: Y Smoking Status: Current every day smoker High Cholesterol: Y High blood pressure: Y Diabetes: Y Surgical History Reviewed Surgical History Other - Tonsilectomy Other - ACF 2002 DRY DIP WORKER History (not configured) Past Medical History Reviewed Past Medical History Asthma: Y Carotid Stenosis: Y Diabetes: Y Dizzy Spells: Y High Blood Pressure: Y Peripheral Vascular Disease (PVD): Y Stroke: Y Notes: CAROTID STENOSIS Documents for Discussion N/A Screening None recorded. HPI Cerebral Vascular Disease Reported by patient. Quality: weakness Severity: mild loss of strength; interference with daily activities Duration: has noted for months Onset/Timing: continuous Associated Symptoms: no headache; no nausea; no vomiting; no tinnitus; no difficulty speaking; no lethargy; no fever; no chills; no palpitations; no syncope; no loss of consciousness right carotid stenosis History of stroke ROS Patient reports exercise intolerance but reports no fever, no night sweats, no significant weight gain, and no significant weight loss. She reports muscle aches, muscle weakness, and arthralgias/joint pain but reports no back pain and no swelling in the extremities. She reports weakness and numbness but reports no loss of consciousness, no seizures, no dizziness, and no headaches; stroke left jess. She reports no dry eyes, no irritation, and no vision change. She reports no difficulty hearing and no ear pain. She reports no frequent nosebleeds and no nose/sinus problems. She reports no sore t hroat, no bleeding gums, no snoring, no dry mouth, no mouth ulcers, no oral abnormalities, and no teeth problems. She reports no HISTORY AND PHYSICAL [id number] JESSE SHAFFER jugular vein distension and no swollen glands. She reports no chest pain, no arm pain on exertion, no shortness of breath when walking, no shortness of breath when lying down, no palpitations, and no known heart murmur. She reports no cough, no wheezing, no shortness of breath, and no coughing up blood. She reports no abdominal pain, no vomiting, normal appetite, no diarrhea, not vomiting blood, no nausea, and no constipation. She reports no incontinence, no difficulty urinating, no hematuria, and no increased frequency. She reports no abnormal mole, no jaundice, and no rashes. She reports no depression, no sleep disturbances, fee ling safe in relationship, and no alcohol abuse. She reports no fatigue. She reports no swollen glands and no bruising. She reports no runny nose, no sinus pressure, no itching, no hives, and no frequent sneezing. ROS as noted in the HPI Physical Exam Patient is a 56-year-old female. Constitutional: General Appearance healthy-appearing, well developed, and overweight. Level of Distress NAD. Ambulation ambulation with walker. Cardiovascular: Apical Impulse not displaced or no thrill. Heart Auscultation normal s1 and s2; no murmurs, rubs, or gallops; and RRR. Arterial Pulses no abdominal aorta bruits, femoral bruits, or popliteal bruits and 2+ bilateral, carotid 2+ bilateral, femoral 2+ bilateral, popliteal 2+ bilateral, and dorsalis p michael 2+ bilateral. Edema no edema or varicosities. Lungs: Repiratory Effort no dyspnea. Percussion no hyperresonance or dullness or flatness. Auscultation no wheezing, rhonchi, or rales / crackles and breathing sounds normal, good air movement, and CTA except as noted. Abdomen: Bowl Sounds normal. Inspection and Palpation no tenderness, guarding, masses, or rebound tenderness and soft and non-distended. Liver non-tender and no hepatomegaly. Spleen non-tender and no splenomegaly. Hernia none palpable. Musculoskeletal System: Gait And Stance wide-based and irregular gait and stance. Digits and Nails normal nails and no cyanosis. Joints, Bones, and Muscles limited ROM and abnormal strength; especially right upper extremity. Neurologic: Cranial Nerves grossly intact. Reflexes DTRs abnormal. Sensation grossly intact. Lymph Nodes: Lymph Nodes no cervical LAD, supraclavicular LAD, axillary LAD, or inguinal LAD. Eyes: Lids and Conjunctivae no discharge or pallor and non-injected. Pupils PERRLA. Cornea grossly intact. EOM EOMI. Lens clear. Sclera non-icteric. Neck: Neck no masses, enlarged lymph nodes, or carotid bruits and supple and trachea midline. Thyroid no enlargement or nodules and non-tender. Skin: Inspection and Palpation no rash, lesions, ulcers, jaundice, or abnormal nevi. Assessment / Plan right internal carotid artery stenosis 1. Carotid artery stenosis I65.23: Occlusion and stenosis of bilateral carotid arteries CAROTID STENOSIS: CARE INSTRUCTIONS HISTORY AND PHYSICAL [id number] JESSE SHAFFER Discussion Notes right internal carotid artery stenosis I have discussed her disease process with her and her in detail as well as the alternative methods of treatment we discussed right carotid endarterectomy and the expected benefits and risk the risks included bleeding infection strok e and in the imponderables. She understands all of the above and wishes to proceed with right carotid endarterectomy FANNIE MARIANO MD at 1319 CC: [id number] DICTATION DATE: 05/29/17 0930 FREELANCE GRAPHIC DESIGNER: SOLEDAD 06/10/17 0944 PRE [address] [place] [address] [place] [id number]
[~2017-06-17 07:30] MED LIST changes: +KEPPRA500 MG PO; +MAG-OX 400 MG400 MG PO
[2017-06-22] VITALS (12 sets, daily range): BP systolic 113–183; BP diastolic 48–64; Ht 172.7 cm; Wt 94.1 kg
[2017-06-22] MEDS ORDERED: NOVOLIN R100 U/ML SQ (09:27)
[2017-06-22 10:19] LABS: HEMATOCRIT 25.7 % (36.0-48.0); MCHC 26.8 g/dL (31.0-37.0); MCV 66.6 fL (80.0-100.0); RBC 3.86 10x6/uL (4.00-5.40); RDW 16.3 % (11.5-14.5); WBC 9.8 10x3/uL (4.8-10.8)
[2017-06-22 10:21] LABS: HEMOGLOBIN 6.9 g/dL (12-16); MCH 17.9 pg (26.0-34.0)
[2017-06-22 10:25] LABS: APTT 27.3 SECONDS (22.8-39.4)
[2017-06-22 10:27] LABS: PROTIME 12.6 SECONDS (11.6-15.0)
[2017-06-22 11:01] LABS: ALBUMIN 3.3 g/dL (3.4-5.0); ALKALINE PHOSPHATASE 87 U/L (46-116); ALT (SGPT) 15 U/L (10-68); CALC OSMOLALITY 283 mosm/kg (275-300); CALCIUM 9.4 mg/dL (8.5-10.1); CARBON DIOXIDE 25.5 mmol/L (21.0-32.0); CHLORIDE - SERUM 103 mmol/L (98-107); CREATININE - SERUM 0.8 mg/dL (0.6-1.3); GLUCOSE 178 mg/dL (74-106); POTASSIUM - SERUM 4.4 mmol/L (3.5-5.1); SODIUM 139 mmol/L (136-145); UREA NITROGEN 17 mg/dL (7-18); eGFR NON AFRICAN AMERICAN 78 mL/min (90-120)
[2017-06-22 14:46] LABS: APPEARANCE CLEAR (CLEAR); BILIRUBIN NEGATIVE (NEGATIVE); COLOR YELLOW (YELLOW); GLUCOSE NEGATIVE (NEGATIVE); KETONE NEGATIVE (NEGATIVE); NITRITE NEGATIVE (NEGATIVE); PROTEIN TRACE mg/dL (NEGATIVE); UROBILINOGEN NORMAL (NORMAL)
[2017-06-22 14:47] LABS: EPITHELIAL CELLS 0-5 /hpf (0-5); RED CELLS - URINE OCC /hpf (0-5); WHITE CELLS - URINE 0-5 /hpf (0-5)
[2017-06-22 14:48] LABS: BACTERIA FEW /hpf (NONE SEEN)
[2017-06-22 18:13] LABS: THYROID STIMULATING HORMONE 0.87 uIU/mL (0.36-3.74)
[2017-06-22] MEDS ORDERED: ULTRAM50 MG PO (19:11)
[2017-06-23] VITALS (30 sets, daily range): BP systolic 107–203; BP diastolic 42–74
[2017-06-23 08:04] LABS: BASOPHILS 0.8 % (0-2); IMMATURE GRANULOCYTES 0.1 % (0-5); LYMPHOCYTES 22.8 % (15-50); MCH 21.5 pg (26.0-34.0); MCHC 29.4 g/dL (31.0-37.0); MEAN PLATELET VOLUME 10.8 fL (7.4-10.4); MONOCYTES 9.5 % (2-11); NEUTROPHILS 64.8 % (40-80); PLATELET COUNT 437 10x3/uL (130-400); RBC 4.52 10x6/uL (4.00-5.40); RDW 21.1 % (11.5-14.5); WBC 8.4 10x3/uL (4.8-10.8)
[2017-06-23 08:07] LABS: HEMOGLOBIN 9.7 g/dL (12-16); INR 1.01 (0.85-1.17); PROTIME 12.9 SECONDS (11.6-15.0)
[2017-06-23 08:11] LABS: APTT 28.9 SECONDS (22.8-39.4)
[2017-06-23 08:14] LABS: ALBUMIN 3.4 g/dL (3.4-5.0); ALKALINE PHOSPHATASE 88 U/L (46-116); ALT (SGPT) 16 U/L (10-68); BILIRUBIN - TOTAL 0.82 mg/dL (0.2-1.3); CALC OSMOLALITY 285 mosm/kg (275-300); CALCIUM 9.8 mg/dL (8.5-10.1); CHLORIDE - SERUM 103 mmol/L (98-107); CREATININE - SERUM 0.6 mg/dL (0.6-1.3); GLUCOSE 162 mg/dL (74-106); SODIUM 141 mmol/L (136-145); UREA NITROGEN 15 mg/dL (7-18); eGFR NON AFRICAN AMERICAN > 90 mL/min (90-120)
[2017-06-23] MEDS ORDERED: NICODERM C1 PATCH .1 TRANSDERM (21:05)
[2017-06-24] VITALS (24 sets, daily range): BP systolic 110–214; BP diastolic 48–77
[2017-06-24 06:35] LABS: BASOPHILS 0.5 % (0-2); HEMATOCRIT 32.7 % (36.0-48.0); HEMOGLOBIN 9.5 g/dL (12-16); IMMATURE GRANULOCYTES 0.1 % (0-5); LYMPHOCYTES 22.7 % (15-50); MCH 21.3 pg (26.0-34.0); MCHC 29.1 g/dL (31.0-37.0); MCV 73.3 fL (80.0-100.0); MEAN PLATELET VOLUME 9.7 fL (7.4-10.4); MONOCYTES 11.5 % (2-11); NEUTROPHILS 62.2 % (40-80); PLATELET COUNT 396 10x3/uL (130-400); RBC 4.46 10x6/uL (4.00-5.40); RDW 21.8 % (11.5-14.5); WBC 8.1 10x3/uL (4.8-10.8)
[2017-06-24 09:00] LABS: HAPTOGLOBIN 321 mg/dL (34-200)
[2017-06-25] VITALS (24 sets, daily range): BP systolic 106–162; BP diastolic 43–98
[2017-06-25 04:22] LABS: BASOPHILS 0.4 % (0-2); EOSINOPHILS 1.9 % (0-7); HEMATOCRIT 29.9 % (36.0-48.0); HEMOGLOBIN 8.7 g/dL (12-16); IMMATURE GRANULOCYTES 0.2 % (0-5); LYMPHOCYTES 18.4 % (15-50); MCH 21.2 pg (26.0-34.0); MCHC 29.1 g/dL (31.0-37.0); MCV 72.7 fL (80.0-100.0); MEAN PLATELET VOLUME 10.4 fL (7.4-10.4); MONOCYTES 8.5 % (2-11); NEUTROPHILS 70.6 % (40-80); PLATELET COUNT 399 10x3/uL (130-400); RBC 4.11 10x6/uL (4.00-5.40); RDW 22.2 % (11.5-14.5)
[2017-06-25 04:31] LABS: WBC 10.3 10x3/uL (4.8-10.8)
[2017-06-25 04:46] LABS: CALCIUM 8.8 mg/dL (8.5-10.1); CARBON DIOXIDE 27.1 mmol/L (21.0-32.0); CHLORIDE - SERUM 104 mmol/L (98-107); CREATININE - SERUM 0.5 mg/dL (0.6-1.3); GLUCOSE 128 mg/dL (74-106); SODIUM 141 mmol/L (136-145); eGFR NON AFRICAN AMERICAN > 90 mL/min (90-120)
[2017-06-25 04:49] LABS: CALC OSMOLALITY 280 mosm/kg (275-300); POTASSIUM - SERUM 3.6 mmol/L (3.5-5.1); UREA NITROGEN 7 mg/dL (7-18)
[2017-06-26] VITALS (10 sets, daily range): BP systolic 142–185; BP diastolic 50–65
[2017-06-26 04:25] LABS: BASOPHILS 0.6 % (0-2); EOSINOPHILS 2.1 % (0-7); HEMATOCRIT 31.4 % (36.0-48.0); HEMOGLOBIN 9.1 g/dL (12-16); IMMATURE GRANULOCYTES 0.1 % (0-5); LYMPHOCYTES 18.3 % (15-50); MCH 21.5 pg (26.0-34.0); MCV 74.1 fL (80.0-100.0); MEAN PLATELET VOLUME 9.5 fL (7.4-10.4); MONOCYTES 11.6 % (2-11); NEUTROPHILS 67.3 % (40-80); PLATELET COUNT 356 10x3/uL (130-400); RBC 4.24 10x6/uL (4.00-5.40); RDW 23.1 % (11.5-14.5); WBC 8.6 10x3/uL (4.8-10.8)
[2017-06-26] MEDS ORDERED: FERROUS SULFAT325 MG PO (08:57)
== END 2017-06-26 12:20 | disposition home health service (06) | DRG 989 ==
LOC: D.CVICU 06-22 08:56 → D.SDCHOLD 06-24 07:30 → D.CVICU 06-26 12:20
PROVIDERS: Family Medicine; General Practice; Internal Medicine Cardiovascular Disease; Internal Medicine Gastroenterology; Internal Medicine Hematology & Oncology
PROC: 0QB33ZX Excision of Left Pelvic Bone, Percutaneous Approach, Diagnostic (ICD-10-PCS; 2017-06-23)
PROC: 07DR3ZX Extraction of Iliac Bone Marrow, Percutaneous Approach, Diagnostic (ICD-10-PCS; principal; 2017-06-23 10:50)
PROC: 0DB98ZX Excision of Duodenum, Via Natural or Artificial Opening Endoscopic, Diagnostic (ICD-10-PCS; 2017-06-25)
PROC: 0DB78ZX Excision of Stomach, Pylorus, Via Natural or Artificial Opening Endoscopic, Diagnostic (ICD-10-PCS; 2017-06-25)
PROC: 3E1H88Z Irrigation of Lower GI using Irrigating Substance, Via Natural or Artificial Opening Endoscopic (ICD-10-PCS; 2017-06-25)
DX: I65.21 Occlusion and stenosis of right carotid artery (principal); D50.9 Iron deficiency anemia, unspecified; E11.65 Type 2 diabetes mellitus with hyperglycemia; Z79.4 Long term (current) use of insulin; I10 Essential (primary) hypertension; R63.4 Abnormal weight loss; Z68.31 Body mass index [BMI] 31.0-31.9, adult; R56.9 Unspecified convulsions; K29.60 Other gastritis without bleeding; K64.4 Residual hemorrhoidal skin tags

== ENCOUNTER 2017-06-27 16:42 | Emergency (ER) | payer MEDICAID ==
[2017-06-22 16:39] VITALS: BMI 31.5
[~2017-06-27 16:42] MED LIST changes: +FERROUS SULFAT325 MG PO; +NICODERM C1 PATCH .1 TRANSDERM; +NOVOLIN R100 U/ML SQ
[2017-06-27 17:55] LABS: UDS - AMPHET NEGATIVE QUAL (NEGATIVE); UDS - BARB NEGATIVE QUAL (NEGATIVE); UDS - BENZO NEGATIVE QUAL (NEGATIVE); UDS - COCAINE NEGATIVE QUAL (NEGATIVE); UDS - OPIATE NEGATIVE QUAL (NEGATIVE); UDS - PCP NEGATIVE QUAL (NEGATIVE); UDS - THC NEGATIVE QUAL (NEGATIVE)
[2017-06-27 18:05] LABS: APPEARANCE HAZY (CLEAR); BILIRUBIN NEGATIVE (NEGATIVE); COLOR YELLOW (YELLOW); GLUCOSE NEGATIVE (NEGATIVE); KETONE NEGATIVE (NEGATIVE); NITRITE NEGATIVE (NEGATIVE); PH 8.5 (5.0-6.0); PROTEIN 3+ mg/dL (NEGATIVE); SPECIFIC GRAVITY 1.005 (1.005-1.020); UROBILINOGEN NORMAL (NORMAL)
[2017-06-27 18:13] LABS: BACTERIA FEW /hpf (NONE SEEN); EPITHELIAL CELLS 0-5 /hpf (0-5); HYALINE CAST RARE /lpf (NONE SEEN); RED CELLS - URINE 0-5 /hpf (0-5)
[2017-06-27 18:17] LABS: BASOPHILS 0.4 % (0-2); EOSINOPHILS 1.7 % (0-7); HEMATOCRIT 35.3 % (36.0-48.0); HEMOGLOBIN 10.2 g/dL (12-16); IMMATURE GRANULOCYTES 0.1 % (0-5); LYMPHOCYTES 12.7 % (15-50); MCH 21.7 pg (26.0-34.0); MCHC 28.9 g/dL (31.0-37.0); MCV 74.9 fL (80.0-100.0); MEAN PLATELET VOLUME 9.6 fL (7.4-10.4); MONOCYTES 7.3 % (2-11); NEUTROPHILS 77.8 % (40-80); PLATELET COUNT 359 10x3/uL (130-400); RBC 4.71 10x6/uL (4.00-5.40); WBC 9.2 10x3/uL (4.8-10.8)
[2017-06-27 18:37] LABS: ALBUMIN 3.1 g/dL (3.4-5.0); ALKALINE PHOSPHATASE 87 U/L (46-116); ALT (SGPT) 17 U/L (10-68); BILIRUBIN - TOTAL 0.32 mg/dL (0.2-1.3); CALC OSMOLALITY 288 mosm/kg (275-300); CALCIUM 9.3 mg/dL (8.5-10.1); CARBON DIOXIDE 24.5 mmol/L (21.0-32.0); CHLORIDE - SERUM 107 mmol/L (98-107); CREATININE - SERUM 0.6 mg/dL (0.6-1.3); GLUCOSE 152 mg/dL (74-106); MAGNESIUM - SERUM 1.7 mg/dL (1.8-2.4); POTASSIUM - SERUM 3.9 mmol/L (3.5-5.1); PROTEIN - SERUM 7.1 g/dL (6.4-8.2); SODIUM 144 mmol/L (136-145); UREA NITROGEN 9 mg/dL (7-18); eGFR NON AFRICAN AMERICAN > 90 mL/min (90-120)
== END 2017-06-27 19:15 | disposition home or self-care (01) ==
LOC: D.ER 16:42
PROVIDERS: Family Medicine
DX: G40.909 Epilepsy, unspecified, not intractable, without status epilepticus (principal); M79.662 Pain in left lower leg; M79.661 Pain in right lower leg; Z86.73 Personal history of transient ischemic attack (TIA), and cerebral infarction without residual deficits; E11.9 Type 2 diabetes mellitus without complications; Z79.4 Long term (current) use of insulin; I10 Essential (primary) hypertension

== ENCOUNTER 2017-06-28 12:22 | Inpatient (IN) | payer MEDICAID ==
[~2017-06-28] VITALS: Ht 172.7 cm; Wt 81.8 kg
--- NOTE | ~2017-06-28 | OP ---
PATIENT NAME: JESSE SHAFFER MEDICAL RECORD: [id number] :58 LOCATION:D.M2 D.2116 ADMISSION DATE:06/28/17 SURGEON: CHRIS FIGUEROA MD DATE OF OPERATION: 07/01/2017 PROCEDURES: 1. PTCA stent to left circumflex. 2. PTCA, LAD. 3. Selective coronary angiography. INDICATION: Angina and coronary artery disease. PROCEDURE IN DETAIL: After informed consent was obtained and after detailed explanation of risks, benefits as well as alternative therapies, the patient elected to proceed with angiogram and angioplasty. The left femoral area was prepped and draped in normal sterile fashion. The left femoral artery was cannulated via modified Seldinger technique with placement of 6-[place] Citizen sheath. All catheters exchanged through this sheath. INTRAVASCULAR ULTRASOUND: The left circumflex has 80% to 90% stenosis in the proximal and mid vessel confirmed by intravascular ultrasound. The mid vessel was addressed with a 3.0 x 12 mm Integrity, the proximal with 3.5 x 8 mm Integrity. This caused plaque shift into the LAD. LAD was angioplastied with a 3.5 balloon. Result was 0% residual throughout. OVERALL IMPRESSION: Successful percutaneous transluminal coronary angioplasty stent of the left circumflex going from 85% initial stenosis times 2 to 0% residual. TRANSINT:[id number] Voice Confirmation ID: [id number] DOCUMENT ID: [id number] CHRIS FIGUEROA MD CC: [id number] DICTATION DATE: 07/01/17 112 PSYCHIATRIC ARNP: 07/01/17 1331 ADM IN [facility] [address] [place] [address]
--- NOTE | ~2017-06-28 | EC ---
PATIENT:JESSE SHAFFER DATE OF SERVICE: 06/28/17 SEX: F MEDICAL RECORD: [id number] DATE OF : 58 LOCATION:D.M2 D.211 AGE OF PATIENT: 56 ADMISSION DATE: 06/28/17 REFERRING PHYSICIAN: INTERPRETING PHYSICIAN: CHRIS ESCUDERO MD ECHOCARDIOGRAM REPORT ECHO CHARGES 4 ECHO COMPLETE CLINICAL DIAGNOSIS: CVD ECHOCARDIOGRAPHIC MEASUREMENTS (adult normal given) AC root (d.<3.7cm) 3.1 cm LV Septum d (<1.2 cm> 1.4 cm Valve Excursion 1.3 cm LV Septum (systole) 1.9 cm Left Atria (s.<4.0cm> 2.9 cm LVPW d(<1.2cm) 1.4 cm RV (d.<2.3cm) 1.8 cm LVPW (sytole) 2.0 cm LV diastole(<5.6CM) 4.9 cm MV E-F(>70mm/sec) cm LV systole 2.7 cm LVOT Diameter 1.5 cm MV exc.(>10mm) cm Est.ejection fraction (50-75%) % Pericardial Effusion N DOPPLER: LVIT cm/sec A 74.0 cm/sec E 57.0 cm/sec LA cm/sec RVSP mmHg LVOT 315 cm/sec AOP1/2T m/s Asc. Ao 294 cm/sec RVOT 73.0 cm/sec RA cm/sec PA 103 cm/sec AV Gradient Peak 35.0 mmHg AV Mean 16.0 mmHg AV Area 1.6 cm MV Gradient Peak 3.5 mmHg MV Mean 1.8 mmHg MV Area cm COMMENTS: Third Helper: Felipe GUZMAN GLEASON Locomotive Mechanic: 1 Dr. Escudero TAPE# PACS DATE OF SERVICE: 06/29/2017 PROCEDURE: Echocardiogram. FINDINGS: 1. Left ventricular chamber size is within normal limits. Left ventricular systolic function is normal. Overall ejection fraction estimated at 55%. 2. Left atrium, right atrium, and right ventricular chamber sizes are within normal limits. 3. Valvular structures: Aortic valve demonstrates mild calcific aortic ECHOCARDIOGRAM REPORT [id number] JESSE SHAFFER stenosis. Valve area calculates to 1.6 cm-squared. There is a gradient of 35 mm across the valve. The remaining valvular structures have normal structure and motion. 4. Doppler interrogation elsewise reveals no significant valvular insufficiency or stenosis. TRANSINT:[id number] Voice Confirmation ID: [id number] DOCUMENT ID: [id number] CHRIS ESCUDERO MD CC: [id number] DICTATION DATE: 06/30/17 1210 HOT TAR ROOFER HELPER: 06/30/17 1305 ADM IN [place] [id number] [place] [id number]
--- NOTE | ~2017-06-28 | HP ---
PATIENT: JESSE SHAFFER MEDICAL RECORD: [id number] ACCOUNT: [id number] LOCATION:[address] : 58 ADMISSION DATE: 06/28/17 HISTORY AND PHYSICAL EXAMINATION DATE OF ADMISSION: 06/28/2017 CHIEF COMPLAINT: Elevated troponin and hypertension. HISTORY OF PRESENT ILLNESS: A 56-year-old female with hypertension, diabetes, strokes, carotid occlusive disease, and hyperlipidemia, who was just discharged from the hospital on Thursday by Dr. Cuellar. She had been admitted initially for right carotid endarterectomy, but was found to have significant anemia, which had not been present before. She was going through workup for anemia with Dr. Palumbo and had EGD and colonoscopy by Dr. Mcintyre, which were fairly unremarkable. At this time, the surgery was put on hold and she was discharged home on her usual medications that she has been taking prior to the admission. She got home on Thursday. On Thursday morning, she was given her usual medications. Her blood pressure was elevated, though I am not sure what those numbers were. Her gave her another 20 mg of lisinopril and the blood pressure did not go down, so she was brought to the Emergency Department where she was evaluated on Thursday. Some medicine was given to help get her blood pressure down and she was discharged back home. Yesterday, her blood pressure remained elevated again and she was brought back in. Her troponin was elevated at 0.143. She has no known heart disease. Also, there was a report of "twitching" in her right leg and maybe her right arm. She had this when she had her last stroke in January of 2017. She was seen by Dr. Dwight baires. He started her on Keppra. Apparently when she went to rehab, she remained on Keppra and when she was discharged from rehab, she was on Keppra until she ran out of that prescription and did not have any refills, so she has not been taking Keppra. With her elevated blood pressure over the weekend, she started having this "twitching" again and has been restarted on Keppra. Throughout this, the patient has not had any chest pain. PAST MEDICAL HISTORY: Again, diabetes, hypertension, hyperlipidemia, and stroke in November 2016 with critical left internal carotid stenosis and significant right internal carotid stenosis. PAST SURGICAL HISTORY: She had right carotid endarterectomy by Dr. Cuellar in January 2017. She has had appendectomy, cervical spine surgery, wisdom teeth removed. HOME MEDICATIONS: Tramadol 50 mg one every 6 hours as needed for pain, Plavix 75 mg a day, Eliquis 5 mg twice a day, atorvastatin 10 mg a day, lisinopril 20 mg a day, aspirin 81 mg a day, Mag-Ox 400 mg a day, metformin 1000 mg twice a day, and Regular insulin 5 units subq with each meal. She had been on Keppra 500 mg 1 in the morning and 2 in the evening, but stopped it when it ran out because she was not having any more seizures and did not get it refilled. ALLERGIES: PENICILLIN. HABITS: Former smoker, no alcohol or drugs. HISTORY AND PHYSICAL [id number] EDMUNDJESSE Hiram FAMILY HISTORY: Significant for cancer. Father is alive with hypertension. Mother is alive with leukemia and lupus. REVIEW OF SYSTEMS: GENERAL: She has lost about 75 pounds since her stroke last year. CARDIAC: No known history of coronary artery disease. RESPIRATORY: No palpitations. PULMONARY: No shortness of breath, cough, COPD, or asthma. GASTROINTESTINAL: No diarrhea, constipation, or change in bowel habits. She just had EGD and colonoscopy, which were unremarkable by Dr. Mcintyre. GENITOURINARY: No significant problems there. MUSCULOSKELETAL: She has pain mostly in her hands. NEUROLOGIC: She has had 2 strokes with some right arm and hand residual, possible seizure activity with the second stroke in January. PSYCHIATRIC: Denies depression or melancholia. PHYSICAL EXAMINATION: VITAL SIGNS: Temperature 98.6, pulse 80, respirations 18, blood pressure 101/53, O2 sat 96%. GENERAL: She is awake, alert, seems a little tired. HEENT: Grossly within normal limits. NECK: Supple. No JVD or bruit. HEART: Regular rate and rhythm. LUNGS: Clear. ABDOMEN: Soft. EXTREMITIES: No edema. NEUROLOGIC: She has some weakness in the right arm and hand. LABORATORY DATA: CBC with a white count of 11,100, hemoglobin 10.9, hematocrit 37.1. Basic metabolic panel is all okay except calcium little up at 10.6, glucose 202, magnesium 1.6. Liver functions are all okay. Serial troponin started at 0.143, then went up to 0.163, and then down to 0.098 and the last check it was 0.049. ASSESSMENT: 1. Hypertensive crisis. 2. Elevated troponin. 3. Carotid occlusive disease. 4. Diabetes. PLAN: We will get her blood pressure under control. We will restart Keppra. Cardiology has been consulted. Other tests and procedures as warranted. TRANSINT:[id number] Voice Confirmation ID: [id number] DOCUMENT ID: [id number] HISTORY AND PHYSICAL [id number] JESSE SHAFFER WILLIAM MD at 0806 CC: [id number] DICTATION DATE: 06/29/17 09 SUBSTATION ELECTRICIAN SUPERVISOR: 06/29/17 1009 ADM IN [facility] [address] [place] [address]
--- NOTE | ~2017-06-28 | HEMODYNAMI ---
PATIENT:JESSE SHAFFER MEDICAL RECORD: [id number] : 58 LOCATION:[facility] D.2116 ADMISSION DATE: 06/28/17 Generatedon:06/30/201711:05 Patient name: JESSE SHAFFER Patient #: [id number] SSN: DO B: 1960 Date of study: 06/30/2017 Page: Of Hemodynamic Procedure Report Patient Data Patient Demographics Procedure consent was obtained First Name: JESSE Gender: Female Last Name: EDMUND : 1960 [facility] Initial: C Age: 56 year(s) Patient #: [id number] Race: Unknown Additional ID: [id number] Contact details [address]: [address] [place] [address] State: [place] City: [place] Zip code: [address] Past Medical History Allergies Allergen Reaction Date Comments Reported Other allergy 06/30/2017 PCN Admission Admission Data Admission Date: 06/28/2017 Admission Time: 21:24 Room #: D.2116 Lab Results Lab Result Date: 06/30/2017 Lab Result Time: 0:00 Biochemistry Name Units Result Min Max BUN mg/dl 29 --(----)-* 7 18 Creatinine mg/dl 1.2 --(---*)-- 0.6 1.3 CBC Name Units Result Min Max Hemoglobin g/dl 9.7 *-(----)-- 13.5 17.5 Procedure Procedure Types Cath Procedure Diagnostic Procedure [facility] w/Coronaries PCI Procedure Coronary Stent Coronary Stent Initial Miscellaneous Procedures Moderate Sedation up to 15 minutes Procedure Description Procedure Date Procedure Date: 06/30/2017 Procedure Start Time: 10:52 Procedure End Time: 11:03 Procedure Staff Name Function Wagner Escudero MD Performing Physician Edgar Carrillo RT Monitor Dorothy Poole RT Scrub Chele Howell RN Nurse Procedure Data Cath Procedure Fluoroscopy Diagnostic fluoroscopy Total fluoroscopy Time: 1.9 time: 1.9 min min Diagnostic fluoroscopy Total fluoroscopy dose: 318 dose: 318 mGy mGy Contrast Material Contrast Material Type Amount (ml) Isovue 300 62 Entry Location Entry Primary Successful Side Size Upsize Upsize Entry Closure Succes sful Closure Location (Fr) 1 (Fr) 2 (Fr) Remarks Device Remarks Femoral Right 5 Fr 6 Fr Exoseal artery Short Estimated blood loss: 10 ml Diagnostic catheters Device Type Used For End Catheter Placement MULTIPACK Pigtail 5 Fr Procedure catheter MULTIPACK JL 4.0 5Fr Procedure catheter MULTIPACK 3DRC 5Fr Procedure catheter Procedure Complications No complications Procedure Medications Medication Administration Route Dosage Oxygen NC 2 l/min Lidocaine 2% added to field 20 Heparin Flush Bag added to field 2 bags (1000units/500ml NS) 0.9% NaCl I.V. 100 ml/hr Versed I.V. 1 mg Fentanyl I.V. 50 mcg Versed I.V. 1 mg Fentanyl I.V. 50 mcg Versed I.V. 1 mg Fentanyl I.V. 50 mcg Heparin Bolus I.V. 4000 units Versed I.V. 1 mg Fentanyl I.V. 50 mcg Hemodynamics Rest HGB: 9.7 (g/dl) Heart Rate: 97 (bpm) Snapshots Pre Cath Intra NCS Post Cath Vital Signs Time Heart Resp SPO2 etCO2 NIBP (mmHg) Rhythm Pain Sedation Rate (ipm) (%) (mmHg) Status Level (bpm) 10:29:42 96 15 96 33.5 180/77(122) NSR 0 (11) 10(A) , No pain 10:34:33 96 14 97 31.9 161/70(113) NSR 0 (11) 10(A) , No pain 10:39:26 96 14 97 28.1 170/79(123) NSR 0 (11) 10(A) , No pain 10:44:15 94 13 97 31.2 156/74(107) NSR 0 (11) 10(A) , No pain 10:49:08 93 14 97 31.9 156/73(106) NSR 0 (11) 10(A) , No pain 10:54:01 91 15 97 26.6 151/68(116) NSR 0 (11) 9(A) , No pain 10:58:49 92 14 97 34.2 149/77(112) NSR 0 (11) 9(A) , No pain 11:04:23 93 15 97 28.9 155/68(124) NSR 0 (11) 10(A) , No pain Medications Time Medication Route Dose Verified Delivered Reason Notes Effectiveness by by 10:24:26 Oxygen NC 2 Wagner Buffie used for l/min Kena Howell RN procedure 10:24:34 Lidocaine 2% added 20ml Wagner Wagner for local to vial Kena Escudero MD anesthetic field 10:24:39 Heparin Flush added 2 Wagner Wagner used for Bag to bags Kena Escudero MD procedure (1000units/500ml field NS) 10:24:48 0.9% NaCl I.V. 100 Wagner Buffie Per physician ml/hr Kena Howell RN 10:47:09 Versed I.V. 1 mg Wagner Buffie for sedation Kena Howell RN 10:47:15 Fentanyl I.V. 50 Wagner Buffie for sedation mcg Kena Howell RN 10:50:49 Versed I.V. 1 mg Wagner Buffie for sedation Kena Howell RN 10:50:53 Fentanyl I.V. 50 Wagner Buffie for sedation mcg Kena Howell RN 10:53:12 Versed I.V. 1 mg Wagner Buffie for sedation Kena Howell RN 10:53:16 Fentanyl I.V. 50 Wagner Buffie for sedation mcg Kena Howell RN 10:56:44 Heparin Bolus I.V. 4000 Wagner Buffie for verifi ed units Kena Howell RN anticoagulation with dr escudero 10:58:41 Versed I.V. 1 mg Wagner Buffie for sedation Kena Howell RN 10:58:44 Fentanyl I.V. 50 Wagner Buffie for sedation mcg Kena Howell RN Procedure Log Time Note 9:56:49 Edgar Carrillo RT(R) sent for patient. Start room use. 9:56:50 Time tracking: Regular hours 9:56:54 Plan of Care:Hemodynamics will remain stable., Cardiac rhythm will remain stable., Comfort level will be maintained., Respiratory function will remain adequate., Patient/ family verbilizes understanding of procedure., Procedure tolerated without complication., Recovers from procedure without complications.. 9:56:56 Signed procedure consent form obtained from patient. 10:00:16 Lab Result : BUN 29 mg/dl 10:00:16 Lab Result : Hemoglobin 9.7 g/dl 10:00:16 Lab Result : Creatinine 1.2 mg/dl 10:00:20 Lab results completed and on chart. 10:04:40 Patient received from Pre/Post Procedure Room to CCL 1 Alert and oriented. Tansferred to table in Supine position. 10:04:42 Warm blankets applied, and marko hugger turned on for patient comfort. 10:04:42 Correct patient and procedure confirmed by team. 10:04:43 ECG and BP/O2 sat monitors applied to patient. 10:24:26 Oxygen 2 l/min NC was administered by Chele Howell RN; used for procedure; 10:24:34 Lidocaine 2% 20ml vial added to field was administered by Wagner Escudero MD; for local anesthetic; 10:24:39 Heparin Flush Bag (1000units/500ml NS) 2 bags added to field was administered by Wagner Escudero MD; used for procedure; 10:24:48 0.9% NaCl 100 ml/hr I.V. was administered by Chele Howell RN; Per physician; 10:28:33 Diagnostic Cath status Elective 10:28:35 Vital chart was started 10:28:46 Baseline sample Acquired. 10:28:51 Rhythm: sinus rhythm 10:28:52 Full Disclosure recording started 10:30:25 H&P Date Dictated: 06/29/2017 Within 30 days and on chart.. 10:32:55 Pre-procedure instructions explained to patient. 10:32:55 Pre-op teaching completed and patient verbalized understanding. 10:32:57 Family in patients room. 10:32:58 Patient NPO since Midnight. 10:33:20 Patient allergic to Other allergyPCN 10:33:22 Is the patient allergic to Iodine/contrast media? No. 10:33:23 Is patient on blood thinner?Yes 10:33:24 ACC The patient was administered the following blood thiners within the last 24 hours: ACCPlavix 10:33:26 Patient diabetic? Yes. 10:33:28 If diabetic: On Metformin? Yes 10:33:30 If on Metformin: Last Dose? 06/29/2017 10:33:36 Previous problem with sedation/anesthesia? No ? 10:33:36 Snore? Yes 10:33:37 Sleep apnea? No 10:33:38 Deviated septum? No 10:33:39 Opens mouth fully? Yes 10:33:39 Sticks out tongue? Yes 10:33:40 Airway obstruction? No ? 10:33:43 Dentures? No ? 10:33:45 Pre procedure: right dorsailis pedis pulse 1+ Palpable, but thready & weak; easily obliterated 10:33:54 Patient pain scale 0/10 ?. 10:34:04 IV patent on arrival in left forearm with 0.9% NaCl at KVO. 10:34:08 IV left forearm D/C'd due to infiltration. 10:34:27 IV Extension Set opened to sterile field. 10:34:28 IV CATHETER 22g opened to sterile field. 10:34:39 IV started by Chele Howell RN inright forearm with a 22 gauge IV catheter with 0.9% NaCl at KVO. 10:34:44 Right groin area was prepped with chlora-prep and draped in sterile fashion 10:34:45 Alarms reviewed by R. N. 10:34:45 Sharps counted by scrub and verified by R.N. 10:34:52 Use device set Femoral Dx 10:34:54 ACIST Hand Control (58379) opened to sterile field. 10:34:55 ACIST Manifold (81969) opened to sterile field. 10:34:56 ACIST Syringe (29177) opened to sterile field. 10:34:56 Bag Decanter (2002S) opened to sterile field. 10:34:57 Medline Cath Pack ([id number]) opened to sterile field. 10:34:59 Tegaderm 4 x 4 (1626W) opened to sterile field. 10:35:00 PERCUTANEOUS ENTRY 19GA needle opened to sterile field. 10:35:01 SHEATH 5FR [place] (XBK471) opened to sterile field. 10:35:02 DIAGNOSTIC WIRE .035 260cm J wire (167095) opened to sterile field. 10:35:04 DIAGNOSTIC Multipack 5Fr catheter set ([id number]) opened to sterile field. 10:45:57 Physician arrived 10:45:58 --------ALL STOP TIME OUT------ 10:45:58 Final Timeout: patient, procedure, and site verified with staff and physician. All members of the team are in agreement. 10:46:00 Right groin site verified by team. 10:46:02 Physical assessment completed. ASA score P 2 - A patient with mild systemic disease as per Wagner Escudero MD. 10:46:06 Sedation plan: IV Moderate Sedation Medication:Versed, Fentanyl 10:47:09 Versed 1 mg I.V. was administered by Chele Howell RN; for sedation; 10:47:15 Fentanyl 50 mcg I.V. was administered by Chele Howell RN; for sedation; 10:50:49 Versed 1 mg I.V. was administered by Chele Howell RN; for sedation; 10:50:53 Fentanyl 50 mcg I.V. was administered by Chele Howell RN; for sedation; 10:52:22 Procedure started. 10:52:25 Local anesthetic to right femoral artery with Lidocaine 2% by Wagner Escudero MD.INITIAL ACCESS ONLY 10:52:36 A 5 Fr sheath was inserted into the Right Femoral artery 10:52:54 A MULTIPACK Pigtail 5 Fr catheter was advanced over the wire and used for Procedure. 10:52:57 LV gram done using SEPULVEDA 10:53:04 Injector settings: Ml/sec: 10, Volume: 20, 10:53:10 EF : 60 % 10:53:12 Versed 1 mg I.V. was administered by Chele Howell RN; for sedation; 10:53:16 Fentanyl 50 mcg I.V. was administered by Chele Howell RN; for sedation; 10:53:21 Catheter exchanged over wire. 10:53:25 A MULTIPACK JL 4.0 5Fr catheter was advanced over the wire and used for Procedure. 10:53:37 LCA angiography performed. 10:54:12 Catheter exchanged over wire. 10:54:26 A MULTIPACK 3DRC 5Fr catheter was advanced over the wire and used for Procedure. 10:54:46 CHOICE PT Extra Support 182cm wire ([id number]) opened to sterile field. 10:54:47 SHEATH 6FR [place] (PQQ908) opened to sterile field. 10:54:48 INFLATOR Merit BasixCompak (AC4205) opened to sterile field. 10:54:58 RCA angiography performed. 10:54:59 Catheter removed. 10:55:05 Sheath upsized to a 6 Fr Short. 10:55:54 GUIDE 6FR XBLAD 3.5 catheter ([id number]) opened to sterile field. 10:56:11 6 Fr xblad 3.5 guide catheter was inserted over the wire 10:56:44 Heparin Bolus 4000 units I.V. was administered by Chele Howell RN; for anticoagulation; verified with dr escudero 10:57:55 GRAPHIX 300cm 0.014 guide wire ([id number]) opened to sterile field. 10:58:01 graphix wire advanced. 10:58:30 Wire advanced across lesion. 10:58:41 Versed 1 mg I.V. was administered by Chele Howell RN; for sedation; 10:58:44 Fentanyl 50 mcg I.V. was administered by Chele Howell RN; for sedation; 10:59:13 Inflation Number: 1 A INTEGRITY OTW 2.75 X 22 stent ([id number]) was prepped and advanced across the Mid LAD. The stent was deployed at 15 DOMINGA for 0:00 (min:sec). 10:59:29 Stent catheter was removed intact over wire. 10:59:30 Wire removed. 10:59:32 Guide catheter removed. 10:59:37 EXOSEAL 6Fr (EX600) opened to sterile field. 10:59:43 Sheath removed intact; hemostasis achieved with Exoseal to the Right Femoral artery. 10:59:45 Procedure ended.(Physican Out) 11:00:36 Fluoroscopy time 01.90 minutes. 11:00:41 Fluoroscopy dose: 318 mGy 11:00:41 Flurop Dose total: 318 11:00:45 Contrast amount:Isovue 300 62ml. 11:00:58 Sharps counted by scrub and verified by R.N. 11:00:59 Insertion/operative site no bleeding no hematoma. 11:01:02 Post-op/insertion site Right Femoral artery dressed using a 4 x 4 and Tegaderm. 11:01:06 Post right femoral artery:stable, soft, clean and dry 11:01:08 Post Procedure Pulses reassessed and unchanged 11:01:12 Post-procedure physical assessment completed. ASA score P 2 - A patient with mild systemic disease as per Wagner Escudero MD. 11:01:14 Post procedure rhythm: unchanged. 11:01:21 Estimated blood loss: 10 ml 11:01:23 Post procedure instruction explained to patient.Patient verbalizes understanding. 11:01:24 Patient needs reinforcement of post procedure teaching. 11:01:54 Procedure type changed to Cath procedure, Diagnostic procedure, LHC, LHC w/Coronaries, PCI procedure, Coronary Stent, Coronary Stent Initial, Miscellaneous Procedures, Moderate Sedation up to 15 minutes 11:03:40 Procedure and supply charges have been captured, reviewed, submitted and are correct. 11:03:42 Procedure Complication : No complications 11:03:44 Vital chart was stopped 11:03:44 See physician's report for complete and final results. 11:03:46 Report given to PCU. 11:03:48 Patient transfered to PCU with Stretcher. 11:03:50 Procedure ended. 11:03:50 Full Disclosure recording stopped 11:04:08 End room use (Document Last) Intervention Summary Intervention Notes Time ActionType Lesion and Equipment Action# Pressure Duration Attributes Used 10:59:13 Place stent Mid LAD INTEGRITY 1 15 00:00 OTW 2.75 X 22 stent ([id number]) Device Usage Item Name Manufacture Quantity Catalog Number Hospital Part Current Mini mal Lot# / Charge Number Stock Stock Serial# Code IV Extension Hospira 1 17314-39 [id number] 42026 386603 5 Set IV CATHETER B. Moon 1 [id number] 087814 976885 035881 5 22g ACIST Hand Acist 1 37327 348405 754091 251450 5 Control Medical (41239) Systems Inc ACIST Acist 1 21137 728387 249362 360789 5 Manifold Medical (75139) Systems Inc ACIST Acist 1 10543 778750 225620 181014 20 Syringe Medical (33123) Systems Inc Bag Decanter Microtek 1 2001S 825339 97273 754243 5 (2001S) Medical Inc. Medline Cath Cardinal 1 [id number] 015151 43918 831231 5 Pack Health ([id number]) Tegaderm 4 x 3M 1 1626W 694130 795267 879864 5 4 (1626W) PERCUTANEOUS Cook Medical 1 R22204 985854 580669 5 ENTRY 19GA needle SHEATH 5FR Terumo 1 BAJ585 486972 008656 032196 40 [place] (PIB704) DIAGNOSTIC St Omar 1 293655 193049 349832 402903 30 WIRE .035 260cm J wire (617809) DIAGNOSTIC Cardinal 1 FM0208 727497 73044 160776 30 Multipack Health 5Fr catheter set (TX8691) MULTIPACK Cardinal 1 657044 5 Pigtail 5 Fr Health catheter MULTIPACK JL Cardinal 1 304519 5 4.0 5Fr Health catheter MULTIPACK Cardinal 1 120915 5 3DRC 5Fr Health catheter CHOICE PT [place] 1 [id number] 914011 399484 111329 5 Extra Scientific Support 182cm wire ([id number]) SHEATH 6FR Terumo 1 VFJ085 965633 408427 828359 40 [place] (YNG435) INFLATOR Merit 1 GN2750 922576 986966 369095 15 [facility] Medical BasixCompak (BI4105) GUIDE 6FR Cardinal 1 [id number] 491946 659881 630770 10 XBLAD 3.5 Health catheter (42383041) GRAPHIX [place] 1 [id number] 776393 061431 581361 5 300cm 0.014 Scientific guide wire ([id number]) INTEGRITY Medtronic 1 [id number] 993466 527984 6 [id number] OTW 2.75 X 22 stent ([id number]) EXOSEAL 6Fr Cardinal 1 EX600 123471 648544 518003 10 (EX600) Health Signature Audit [place] Stage Time Signature Unsigned Intra-Procedure 06/30/2017 Edgar Carrillo 11:05:44 AM RT(R) Signatures Monitor : Edgar Carrillo RT Signature : Date : Time : [address] [address]
--- NOTE | ~2017-06-28 | OP ---
PATIENT NAME: JESSE SHAFFER MEDICAL RECORD: [id number] :58 LOCATION:D.M2 D.2116 ADMISSION DATE:06/28/17 SURGEON: CHRIS FIGUEROA MD DATE OF OPERATION: 06/30/2017 PROCEDURES: 1. PTCA stent to LAD. 2. Left heart catheterization. 3. Selective coronary angiography. 4. Left ventriculogram. INDICATION: Angina and coronary artery disease. PROCEDURE IN DETAIL: After informed consent was obtained and after detailed explanation of risks, benefits as well as alternative therapies, the patient elected to proceed with angiogram and angioplasty. The right femoral area was prepped and draped in normal sterile fashion. The right femoral artery was cannulated via modified Seldinger technique with placement of 6-Moldovan sheath. All catheters exchanged through this sheath. FINDINGS: Left ventriculogram was performed in standard 30-degree SEPULVEDA view, reveals good cardiac wall motion throughout all segments. Overall ejection fraction estimated at 60%. SELECTIVE CORONARY ANGIOGRAPHY: 1. Left main showed no significant angiographic disease. 2. Left circumflex has greater than 70% stenosis at the ostium. There is a questionable second lesion further down the circumflex to be better delineated by intravascular ultrasound. 3. The left anterior descending has an ulcerated 90% stenosis in the mid vessel. This is responsible for the non-Q-wave myocardial infarction. 4. The right coronary artery has moderate irregularities, but no flow-limiting stenosis. PTCA STENT OF THE LAD: The stent used was a 2.75 x 22 mm Integrity. Result was 0% residual stenosis. OVERALL IMPRESSION: Successful percutaneous transluminal coronary angioplasty stent of the left anterior descending going from 90% ulcerated stenosis to 0% residual. PLAN: PTCA stent of the left circumflex in the near future. TRANSINT:[id number] Voice Confirmation ID: [id number] DOCUMENT ID: [id number] CHRIS FIGUEROA MD CC: [id number] DICTATION DATE: 06/30/17 1104 HR ASSISTANT: 06/30/17 1245 [place] [address]
--- NOTE | ~2017-06-28 | HEMODYNAMI ---
PATIENT:JESSE SHAFFER MEDICAL RECORD: [id number] : 58 LOCATION:[facility] D.2116 ADMISSION DATE: 06/28/17 Generatedon:07/01/201711:26 Patient name: JESSE SHAFFER Patient #: [id number] SSN: DO B: 1960 Date of study: 07/01/2017 Page: Of Hemodynamic Procedure Report Patient Data Patient Demographics Procedure consent was obtained First Name: JSESE Gender: Female Last Name: EDMUND : 1960 [facility] Initial: C Age: 56 year(s) Patient #: [id number] Race: Unknown Additional ID: [id number] Contact details [address]: [address] [place] [address] State: [place] City: [place] Zip code: [address] Past Medical History Allergies Allergen Reaction Date Comments Reported Other allergy 06/30/2017 PCN Other allergy 07/01/2017 PCN/tape Admission Admission Data Admission Date: 06/28/2017 Admission Time: 21:24 Room #: 2116 Lab Results Lab Result Date: 06/30/2017 Lab Result Time: 0:00 Biochemistry Name Units Result Min Max BUN mg/dl 29 --(----)-* 7 18 Creatinine mg/dl 1.2 --(---*)-- 0.6 1.3 CBC Name Units Result Min Max Hemoglobin g/dl 9.7 *-(----)-- 13.5 17.5 Procedure Procedure Types Cath Procedure Diagnostic Procedure FFR/IVUS Intra-Coronary IVUS Initial PCI Procedure Coronary Stent Coronary Stent Initial x2 Miscellaneous Procedures Moderate Sedation up to 45 minutes Peripheral Cath Diagnostic Procedure Cath Peripheral Renal Arteriogram Procedure Description Procedure Date Procedure Date: 07/01/2017 Procedure Start Time: 10:14 Procedure Staff Name Function Brian Felton RT Scrub Chele Howell RN Nurse Wagner Escudero MD Performing Physician Jenni Patricia RT Monitor Edgar Carrillo RT Scrub Procedure Data Cath Procedure Fluoroscopy Diagnostic fluoroscopy Total fluoroscopy Time: 3.1 time: 3.1 min min Diagnostic fluoroscopy Total fluoroscopy dose: 606 dose: 606 mGy mGy Contrast Material Contrast Material Type Amount (ml) Isovue 300 170 Entry Location Entry Primary Successful Side Size Upsize Upsize Entry Closure Succe ssful Closure Location (Fr) 1 (Fr) 2 (Fr) Remarks Device Remarks Femoral Left 6 Fr Exchanged Exoseal artery Short for another 6fr sheath reprepped for procedure in room 1 Estimated blood loss: 10 ml Diagnostic catheters Device Type Used For End Catheter Placement DIAGNOSTIC 3DRC 5Fr Procedure catheter ([id number]) Procedure Complications No complications Procedure Medications Medication Administration Route Dosage Oxygen NC 2 l/min Lidocaine 2% added to field 20 Heparin Flush Bag added to field 2 bags (1000units/500ml NS) 0.9% NaCl I.V. 100 ml/hr Versed I.V. 1 mg Fentanyl I.V. 50 mcg Heparin Bolus I.V. 4000 units Versed I.V. 1 mg Fentanyl I.V. 50 mcg Versed I.V. 1 mg Fentanyl I.V. 50 mcg Versed I.V. 1 mg Fentanyl I.V. 50 mcg Versed I.V. 1 mg Fentanyl I.V. 50 mcg Heparin Bolus I.V. 4000 units Fentanyl I.V. 50 mcg Versed I.V. 1 mg Hemodynamics Rest HGB: 9.7 (g/dl) Heart Rate: 82 (bpm) Snapshots Pre Cath Intra NCS Post Cath Vital Signs Time Heart Resp SPO2 etCO2 NIBP (mmHg) Rhythm Pain Sedation Rate (ipm) (%) (mmHg) Status Level (bpm) 10:02:03 84 19 100 0 200/99(152) NSR 0 (11) 10(A) , No pain 10:06:50 79 15 98 0 177/79(136) NSR 0 (11) 10(A) , No pain 10:11:24 78 19 95 0 146/70(109) NSR 0 (11) 10(A) , No pain 10:15:57 80 18 96 0 151/75(102) NSR 0 (11) 10(A) , No pain 10:20:25 83 16 96 0 143/77(109) NSR 0 (11) 9(A) , No pain 10:24:58 82 16 96 0 143/70(107) NSR 0 (11) 9(A) , No pain 10:29:26 84 17 97 0 154/79(113) NSR 0 (11) 9(A) , No pain 10:33:58 66 15 97 0 163/79(114) NSR 0 (11) 9(A) , No pain 10:38:33 83 16 97 0 162/77(118) NSR 0 (11) 10(A) , No pain 10:55:54 82 13 96 38.2 169/74(114) NSR 0 (11) 9(A) , No pain 11:00:47 81 16 97 39 147/74(114) NSR 0 (11) 9(A) , No pain 11:05:38 83 15 97 39 165/84(123) NSR 0 (11) 9(A) , No pain 11:10:35 80 16 97 36.7 141/69(101) NSR 0 (11) 9(A) , No pain 11:15:26 81 15 98 38.2 158/79(120) NSR 0 (11) 9(A) , No pain 11:20:15 81 19 98 41.2 148/80(131) NSR 0 (11) 10(A) , No pain Medications Time Medication Route Dose Verified Delivered Reason Notes Effectiveness by by 10:04:57 Oxygen NC 2 Wagner Buffie used for l/min Kena Howell RN procedure 10:05:04 Lidocaine 2% added 20ml Wagner Wagner for local to vial Kena Escudero MD anesthetic field 10:05:09 Heparin Flush added 2 Wagner Wagner used for Bag to bags Kena Escudero MD procedure (1000units/500ml field NS) 10:05:20 0.9% NaCl I.V. 100 Wagner Buffie Per physician ml/hr Kena Howell RN 10:13:43 Versed I.V. 1 mg Wagner Buffie for sedation Kena Howell RN 10:13:48 Fentanyl I.V. 50 Wagner Buffie for sedation mcg Kena Howell RN 10:16:04 Versed I.V. 1 mg Wagner Buffie for sedation Kena Howell RN 10:16:08 Fentanyl I.V. 50 Wagner Buffie for sedation mcg Kena Howell RN 10:16:59 Heparin Bolus I.V. 4000 Wagner Buffie for verifi ed units Kena Howell RN anticoagulation with dr escudero 10:27:01 Versed I.V. 1 mg Wagner Buffie for sedation Kena Howell RN 10:27:07 Fentanyl I.V. 50 Wagner Buffie for sedation mcg Kena Howell RN 10:33:11 Versed I.V. 1 mg Wagner Buffie for sedation Kena Howell RN 10:33:18 Fentanyl I.V. 50 Wagner Buffie for sedation mcg Kena Howell RN 10:54:15 Versed I.V. 1 mg Wagner Buffie for sedation Kena Howell RN 10:54:22 Fentanyl I.V. 50 Wagner Buffie for sedation mcg Kena Howell RN 11:06:40 Heparin Bolus I.V. [address] [facility] Kena Howell RN anticoagulation with dr escudero 11:07:31 Fentanyl I.V. 50 Wagner Buffie for sedation mcg Kena Howell RN 11:07:36 Versed I.V. 1 mg Wagner Buffie for sedation Kena Howell RN Procedure Log Time Note 9:30:20 Brian Felton RT(R) sent for patient. Start room use. 9:37:21 Time tracking: Regular hours 9:37:25 Plan of Care:Hemodynamics will remain stable., Cardiac rhythm will remain stable., Comfort level will be maintained., Respiratory function will remain adequate., Patient/ family verbilizes understanding of procedure., Procedure tolerated without complication., Recovers from procedure without complications.. 9:49:15 Patient received from Pre/Post Procedure Room to CCL 3 Alert and oriented. Tansferred to table in Supine position. 9:49:17 Warm blankets applied, and marko hugger turned on for patient comfort. 9:49:18 Correct patient and procedure confirmed by team. 9:49:27 Signed procedure consent form obtained from patient. 9:49:29 ECG and BP/O2 sat monitors applied to patient. 9:59:08 Vital chart was started 10:00:48 Baseline sample Acquired. 10:00:52 Rhythm: sinus rhythm 10:00:54 Full Disclosure recording started 10:01:02 H&P Date Dictated: 06/30/2017 Within 30 days and on chart.. 10:01:04 Pre-procedure instructions explained to patient. 10:01:06 Family in waiting room. 10:01:07 Patient NPO since Midnight. 10:01:24 Patient allergic to Other allergyPCN/tape 10:01:27 Is the patient allergic to Iodine/contrast media? No. 10:01:29 Was the patient premedicated? Yes 10:01:30 Is patient on blood thinner?Yes 10:01:34 ACC The patient was administered the following blood thiners within the last 24 hours: ACCPlavix 10:02:26 Patient diabetic? Yes. 10:02:28 If diabetic: On Metformin? No 10:02:37 Snore? Yes 10:02:40 Sleep apnea? No 10:02:49 Dentures? No ? 10:02:59 IV patent on arrival in right forearm with 0.9% NaCl at [facility]. 10:03:06 Lab results completed and on chart. 10:03:10 Left groin area was prepped with chlora-prep and draped in sterile fashion 10:03:11 Alarms reviewed by R. N. 10:03:12 Sharps counted by scrub and verified by R.N. 10:03:13 Physician paged 10:04:57 Oxygen 2 l/min NC was administered by Chele Howell RN; used for procedure; 10:05:04 Lidocaine 2% 20ml vial added to field was administered by Wagner Escudero MD; for local anesthetic; 10:05:09 Heparin Flush Bag (1000units/500ml NS) 2 bags added to field was administered by Wagner Escudero MD; used for procedure; 10:05:20 0.9% NaCl 100 ml/hr I.V. was administered by Chele Howell RN; Per physician; 10:08:06 Use device set Femoral Dx 10:08:07 ACIST Syringe (58506) opened to sterile field. 10:08:08 Bag Decanter (2001S) opened to sterile field. 10:08:10 Medline Cath Pack ([id number]) opened to sterile field. 10:08:16 DIAGNOSTIC WIRE .035 260cm J wire (039245) opened to sterile field. 10:08:17 ACIST Hand Control (01310) opened to sterile field. 10:08:18 ACIST Manifold (77703) opened to sterile field. 10:08:20 Tegaderm 4 x 4 (1626W) opened to sterile field. 10:08:34 PERCUTANEOUS ENTRY 19GA needle opened to sterile field. 10:09:04 CHOICE PT Extra Support 182cm wire ([id number]) opened to sterile field. 10:09:05 Callands [place] IVUS Catheter (24778A) opened to sterile field. 10:09:06 SHEATH 6FR [place] (BIN612) opened to sterile field. 10:09:07 INFLATOR Merit BasixCompak (OY7923) opened to sterile field. 10:13:27 Physician arrived 10:13:28 --------ALL STOP TIME OUT------ 10:13:29 Final Timeout: patient, procedure, and site verified with staff and physician. All members of the team are in agreement. 10:13:33 Left groin site verified by team. 10:13:37 Physical assessment completed. ASA score P 2 - A patient with mild systemic disease as per Wagner Escudero MD. 10:13:41 Sedation plan: IV Moderate Sedation Medication:Versed, Fentanyl 10:13:43 Versed 1 mg I.V. was administered by Chele Howell RN; for sedation; 10:13:45 Procedure started. 10:13:48 Fentanyl 50 mcg I.V. was administered by Chele Howell RN; for sedation; 10:14:19 Local anesthetic to left femerol artery with Lidocaine 2% by Wagner Escudero MD.INITIAL ACCESS ONLY 10:14:31 A 6 Fr Short sheath was inserted into the Left Femoral arteryExchanged for another 6fr sheath reprepped for procedure in room 1 10:15:01 A DIAGNOSTIC 3DRC 5Fr catheter ([id number]) was advanced over the wire and used for Procedure. 10:16:03 Left renal angiography performed. 10:16:04 Versed 1 mg I.V. was administered by Chele Howell RN; for sedation; 10:16:04 Right renal angiography performed. 10:16:08 Fentanyl 50 mcg I.V. was administered by Chele Howell RN; for sedation; 10:16:09 Catheter removed. 10:16:25 6 Fr XBLAD 3.5 guide catheter was inserted over the wire 10:16:46 Choice PT extra support wire advanced. 10:16:48 Wire advanced across lesion. 10:16:59 Heparin Bolus 4000 units I.V. was administered by Chele Howell RN; for anticoagulation; verified with dr escudero 10:17:52 IVUS catheter advanced over wire. 10:19:00 IVUS catheter removed over wire. 10:21:01 Wire removed. 10:21:03 Guide catheter removed. 10:21:28 CHOICE PT Extra Support 182cm wire ([id number]) opened to sterile field. 10:21:57 electricity went out guide and wire removed 10:27:01 Versed 1 mg I.V. was administered by Chele Howell RN; for sedation; 10:27:07 Fentanyl 50 mcg I.V. was administered by Chele Howell RN; for sedation; 10:32:35 SHEATH 6FR [place] (BGQ232) opened to sterile field. 10:33:11 Versed 1 mg I.V. was administered by Chele Howell RN; for sedation; 10:33:18 Fentanyl 50 mcg I.V. was administered by Chele Howell RN; for sedation; 10:38:56 Procedure paused in room Cath3 10:38:58 Full Disclosure recording stopped 10:40:00 Pt transferred to Room 1. Pt was reprepped and redraped. 10:40:49 Procedure resumed in room Cath1 10:54:15 Versed 1 mg I.V. was administered by Chele Howell RN; for sedation; 10:54:22 Fentanyl 50 mcg I.V. was administered by Chele Howell RN; for sedation; 10:54:44 Vital chart was started 10:55:00 ACIST Hand Control (36858) opened to sterile field. 11:02:44 Zero performed for pressure channel P1 11:02:53 Zero performed for pressure channel P1 11:03:08 Zero performed for pressure channel P1 11:05:21 6 Fr XBLAD 3.5 guide catheter was inserted over the wire 11:05:29 Chocie pt wire advanced. 11:06:38 Wire advanced across lesion. 11:06:40 Heparin Bolus 4000 units I.V. was administered by Chele Howell RN; for anticoagulation; verified with dr escudero 11:07:31 Fentanyl 50 mcg I.V. was administered by Chele Howell RN; for sedation; 11:07:36 Versed 1 mg I.V. was administered by Chele Howell RN; for sedation; 11:08:51 Inflation Number: 1 A INTEGRITY RX 3.0 x 12 stent ([id number]) was prepped and advanced across the Dist CX. The stent was deployed at 11 DOMINGA for 0:10 (min:sec). 11:08:58 Stent catheter was removed intact over wire. 11:10:48 Inflation Number: 1 A INTEGRITY RX 3.5 x 09 stent ([id number]) was prepped and advanced across the Prox CX. The stent was deployed at 19 DOMINGA for 0:10 (min:sec). 11:12:36 Stent catheter was removed intact over wire. 11:12:39 Wire removed. 11:12:40 Guide catheter removed. 11:13:04 GUIDE 6FR XBLAD 3.5 catheter ([id number]) opened to sterile field. 11:13:33 another cath to get another view of LM 11:14:05 EXOSEAL 6Fr (EX600) opened to sterile field. 11:15:43 Inflation number: 1 A EUPHORA 3.5 x 15 Balloon ([id number]) was prepped and advanced across the Prox LAD, then inflated to 11 DOMINGA for 0:10 (min:sec). 11:16:18 Balloon removed over the wire. 11:16:18 Wire removed. 11:16:42 Sheath removed intact; hemostasis achieved with Exoseal to the Left Femoral artery. 11:16:45 Procedure ended.(Physican Out) 11:16:58 Fluoroscopy time 03.10 minutes. 11:17:04 Fluoroscopy dose: 606 mGy 11:17:04 Flurop Dose total: 606 11:17:09 Contrast amount:Isovue 300 170ml. 11:17:13 Sharps counted by scrub and verified by R.N. 11:17:21 Insertion/operative site no bleeding no hematoma. 11:17:27 Post-op/insertion site Left Femoral artery dressed using a 4 x 4 and Tegaderm. 11:17:31 Post Procedure Pulses reassessed and unchanged 11:17:43 Post-procedure physical assessment completed. ASA score P 2 - A patient with mild systemic disease as per Wagner Escudero MD. 11:17:49 Post procedure rhythm: sinus rhythm 11:18:13 Estimated blood loss: 10 ml 11:18:14 Post procedure instruction explained to patient.Patient verbalizes understanding. 11:19:03 Procedure type changed to Cath procedure, Diagnostic procedure, FFR/IVUS, Intra-Coronary IVUS Initial, PCI procedure, Coronary Stent, Coronary Stent Initial x2, Miscellaneous Procedures, Moderate Sedation up to 45 minutes, Peripheral Cath Diagnostic Procedure, Cath Peripheral, Renal Arteriogram 11:19:06 Procedure and supply charges have been captured, reviewed, submitted and are correct. 11:20:53 Procedure Complication : No complications 11:21:13 FEMSTOP Gold (O31676) opened to sterile field. 11:21:28 Femstop placed over the left femerol artery at 130 mmHg. Hemostasis achieved. 11:21:34 Vital chart was stopped 11:22:06 See physician's report for complete and final results. 11:22:10 Report given to Med II. 11:22:14 Patient transfered to Med II with Bed. 11:24:09 End room use (Document Last) Intervention Summary Intervention Notes Time ActionType Lesion and Equipment Action# Pressure Duration Attributes Used 11:08:51 Place stent Dist CX INTEGRITY RX 1 11 00:10 3.0 x 12 stent ([id number]) 11:10:48 Place stent Prox CX INTEGRITY RX 1 19 00:10 3.5 x 09 stent ([id number]) 11:15:43 Inflate Prox LAD EUPHORA 3.5 1 11 00:10 balloon x 15 Balloon ([id number]) Device Usage Item Name Manufacture Quantity Catalog Number Hospital Part Current Mini mal Lot# / Charge Number Stock Stock Serial# Code ACIST Acist 1 24014 740070 253977 048810 20 Syringe Medical (77929) Systems Inc Bag Decanter Microtek 1 2001S 576777 65226 313130 5 () Medical Inc. Medline Cath Cardinal 1 [id number] 494733 14149 242547 5 [employer] ([id number]) DIAGNOSTIC St Omar 1 999406 730718 656484 171788 30 WIRE .035 260cm J wire (153168) ACIST Hand Acist 1 95132 889472 982525 993241 5 Control Medical (04350) Systems Inc ACIST Acist 1 30054 570071 889374 890763 5 Manifold Medical (04777) Systems Inc Tegaderm 4 x 3M 1 1626W 975112 703560 358936 5 4 (1626W) PERCUTANEOUS Cook Medical 1 A45499 445857 568976 5 ENTRY 19GA needle CHOICE PT Pevely 2 [id number] 136409 378272 112394 5 Extra Scientific Support 182cm wire ([id number]) Callands Callands 1 74835R 565066 796253 088695 8 [place] IVUS Catheter (22706O) SHEATH 6FR Terumo 2 OWA024 904574 303104 234775 40 [place] (ORO815) INFLATOR Merit 1 KA4721 676859 886764 475754 15 [facility] Medical BasixCompak (NQ2082) DIAGNOSTIC Cardinal 1 [id number] 328613 203531 239424 9 3DRC 5Fr Health catheter (397766O) INTEGRITY RX Medtronic 1 [id number] 075681 843084 872056 5 [id number] 3.0 x 12 stent ([id number]) INTEGRITY RX Medtronic 1 [id number] 944838 461799 893302 5 [id number] 3.5 x 09 stent ([id number]) GUIDE 6FR Cardinal 1 [id number] 592808 084283 551533 10 XBLAD 3.5 Health catheter (66251136) EXOSEAL 6Fr Cardinal 1 EX600 182295 208670 270230 10 (EX600) Health EUPHORA 3.5 Medtronic 1 [id number] 025785 071935 223249 5 [id number] x 15 Balloon ([id number]) FEMSTOP Gold St Omar 1 V95843 025140 980992 267871 5 (T52954) Signature Audit [place] Stage Time Signature Unsigned Intra-Procedure 07/01/2017 Jenni Patricia 11:26:25 AM RT(R) Signatures Monitor : Jenni Patricia Signature : RT Date : Time : [facility] [address] [place] [address]
[2017-06-28 14:55] LABS: BASOPHILS 0.2 % (0-2); EOSINOPHILS 0.7 % (0-7); HEMATOCRIT 37.1 % (36.0-48.0); HEMOGLOBIN 10.9 g/dL (12-16); IMMATURE GRANULOCYTES 0.2 % (0-5); LYMPHOCYTES 11.2 % (15-50); MCH 21.8 pg (26.0-34.0); MCHC 29.4 g/dL (31.0-37.0); MCV 74.1 fL (80.0-100.0); MEAN PLATELET VOLUME 9.4 fL (7.4-10.4); MONOCYTES 7.4 % (2-11); NEUTROPHILS 80.3 % (40-80); PLATELET COUNT 376 10x3/uL (130-400); RBC 5.01 10x6/uL (4.00-5.40); RDW 24.7 % (11.5-14.5); WBC 11.1 10x3/uL (4.8-10.8)
[2017-06-28 15:08] LABS: ALBUMIN 3.2 g/dL (3.4-5.0); ALKALINE PHOSPHATASE 93 U/L (46-116); ALT (SGPT) 16 U/L (10-68); BILIRUBIN - TOTAL 0.41 mg/dL (0.2-1.3); CALC OSMOLALITY 289 mosm/kg (275-300); CALCIUM 10.6 mg/dL (8.5-10.1); CARBON DIOXIDE 27.4 mmol/L (21.0-32.0); CHLORIDE - SERUM 105 mmol/L (98-107); CREATININE - SERUM 0.5 mg/dL (0.6-1.3); POTASSIUM - SERUM 3.6 mmol/L (3.5-5.1); PROTEIN - SERUM 7.4 g/dL (6.4-8.2); SODIUM 143 mmol/L (136-145); UREA NITROGEN 10 mg/dL (7-18); eGFR NON AFRICAN AMERICAN > 90 mL/min (90-120)
[2017-06-28 15:09] LABS: GLUCOSE 202 mg/dL (74-106)
[2017-06-28 15:24] LABS: CKMB 1.6 U/L (0.0-3.6); CREATINE KINASE 61 UL (21-215); MAGNESIUM - SERUM 1.6 mg/dL (1.8-2.4)
[2017-06-28 15:27] LABS: TROPONIN-I 0.143 ng/mL (0.000-0.060)
[2017-06-28 18:23] LABS: CKMB 1.4 U/L (0.0-3.6); CREATINE KINASE 63 UL (21-215)
[2017-06-28 18:26] LABS: TROPONIN-I 0.163 ng/mL (0.000-0.060)
[2017-06-29] VITALS (7 sets, daily range): BP systolic 101–142; BP diastolic 49–62; Ht 172.7 cm; Wt 81.8 kg
[2017-06-29 01:05] LABS: TROPONIN-I 0.098 ng/mL (0.000-0.060)
[2017-06-29 07:11] LABS: BASOPHILS 0.3 % (0-2); EOSINOPHILS 1.5 % (0-7); HEMATOCRIT 34.6 % (36.0-48.0); HEMOGLOBIN 9.9 g/dL (12-16); IMMATURE GRANULOCYTES 0.2 % (0-5); LYMPHOCYTES 17.7 % (15-50); MCH 21.7 pg (26.0-34.0); MCHC 28.6 g/dL (31.0-37.0); MCV 75.7 fL (80.0-100.0); MONOCYTES 9.8 % (2-11); NEUTROPHILS 70.5 % (40-80); PLATELET COUNT 383 10x3/uL (130-400); RBC 4.57 10x6/uL (4.00-5.40); RDW 25.6 % (11.5-14.5); WBC 9.5 10x3/uL (4.8-10.8)
[2017-06-29 07:19] LABS: CKMB 0.7 U/L (0.0-3.6); CREATINE KINASE 66 UL (21-215); TROPONIN-I 0.049 ng/mL (0.000-0.060)
[2017-06-29 07:36] LABS: ANION GAP 12.8 mmol/L (8-16); CALCIUM 9.8 mg/dL (8.5-10.1); CARBON DIOXIDE 30.2 mmol/L (21.0-32.0); CREATININE - SERUM 1.3 mg/dL (0.6-1.3)
[2017-06-29 12:19] LABS: CREATINE KINASE 59 UL (21-215); TROPONIN-I 0.047 ng/mL (0.000-0.060)
[2017-06-30 05:39] VITALS: BP 116/59
[2017-06-30 05:44] LABS: BASOPHILS 0.5 % (0-2); EOSINOPHILS 2.3 % (0-7); HEMATOCRIT 33.9 % (36.0-48.0); HEMOGLOBIN 9.7 g/dL (12-16); IMMATURE GRANULOCYTES 0.1 % (0-5); MCH 21.9 pg (26.0-34.0); MCHC 28.6 g/dL (31.0-37.0); MCV 76.5 fL (80.0-100.0); MEAN PLATELET VOLUME 10.4 fL (7.4-10.4); MONOCYTES 9.2 % (2-11); NEUTROPHILS 67.9 % (40-80); PLATELET COUNT 393 10x3/uL (130-400); RBC 4.43 10x6/uL (4.00-5.40); RDW 26.7 % (11.5-14.5); WBC 8.7 10x3/uL (4.8-10.8)
[2017-06-30 05:53] LABS: CALCIUM 9.2 mg/dL (8.5-10.1); CARBON DIOXIDE 28.7 mmol/L (21.0-32.0); CREATININE - SERUM 1.2 mg/dL (0.6-1.3); MAGNESIUM - SERUM 2.1 mg/dL (1.8-2.4); POTASSIUM - SERUM 3.7 mmol/L (3.5-5.1)
[2017-06-30 08:02] VITALS: BP 149/4
[2017-06-30 11:29] VITALS: BP 149/64
[2017-06-30 20:00] VITALS: BP 110/68
[2017-07-01] VITALS: BP 141/50
[2017-07-01 04:00] VITALS: BP 132/55
[2017-07-01 05:01] LABS: BASOPHILS 0.4 % (0-2); EOSINOPHILS 3.5 % (0-7); HEMATOCRIT 31.8 % (36.0-48.0); HEMOGLOBIN 9.2 g/dL (12-16); IMMATURE GRANULOCYTES 0.3 % (0-5); LYMPHOCYTES 31.2 % (15-50); MCHC 28.9 g/dL (31.0-37.0); MCV 75.9 fL (80.0-100.0); MEAN PLATELET VOLUME 10.1 fL (7.4-10.4); MONOCYTES 10.1 % (2-11); NEUTROPHILS 54.5 % (40-80); RBC 4.19 10x6/uL (4.00-5.40); RDW 26.7 % (11.5-14.5); WBC 7.1 10x3/uL (4.8-10.8)
[2017-07-01 05:08] LABS: PLATELET COUNT 313 10x3/uL (130-400)
[2017-07-01 05:26] LABS: CALCIUM 8.6 mg/dL (8.5-10.1); CARBON DIOXIDE 27.2 mmol/L (21.0-32.0); CHLORIDE - SERUM 106 mmol/L (98-107); GLUCOSE 141 mg/dL (74-106); MAGNESIUM - SERUM 2.1 mg/dL (1.8-2.4); POTASSIUM - SERUM 3.6 mmol/L (3.5-5.1); SODIUM 143 mmol/L (136-145)
[2017-07-01 05:32] LABS: CALC OSMOLALITY 289 mosm/kg (275-300); CREATININE - SERUM 0.7 mg/dL (0.6-1.3); UREA NITROGEN 21 mg/dL (7-18); eGFR NON AFRICAN AMERICAN > 90 mL/min (90-120)
[2017-07-01 07:00] VITALS: BP 159/67
[2017-07-01 12:41] VITALS: BP 137/78
[2017-07-01 17:02] VITALS: BP 149/93
[2017-07-01 22:06] VITALS: BP 143/60
[2017-07-02 05:05] VITALS: BP 95/39
[2017-07-02 05:13] LABS: BASOPHILS 0.3 % (0-2); EOSINOPHILS 2.6 % (0-7); HEMATOCRIT 32.4 % (36.0-48.0); HEMOGLOBIN 9.4 g/dL (12-16); IMMATURE GRANULOCYTES 0.1 % (0-5); MCH 22.3 pg (26.0-34.0); MEAN PLATELET VOLUME 10.3 fL (7.4-10.4); MONOCYTES 8.8 % (2-11); NEUTROPHILS 67.2 % (40-80); PLATELET COUNT 358 10x3/uL (130-400); RBC 4.21 10x6/uL (4.00-5.40); RDW 27.2 % (11.5-14.5)
[2017-07-02 05:15] LABS: WBC 9.1 10x3/uL (4.8-10.8)
[2017-07-02 05:44] LABS: CALC OSMOLALITY 290 mosm/kg (275-300); CALCIUM 8.6 mg/dL (8.5-10.1); CARBON DIOXIDE 25.9 mmol/L (21.0-32.0); CHLORIDE - SERUM 107 mmol/L (98-107); CREATININE - SERUM 0.7 mg/dL (0.6-1.3); MAGNESIUM - SERUM 1.9 mg/dL (1.8-2.4); POTASSIUM - SERUM 3.4 mmol/L (3.5-5.1); SODIUM 143 mmol/L (136-145); UREA NITROGEN 16 mg/dL (7-18); eGFR NON AFRICAN AMERICAN > 90 mL/min (90-120)
[2017-07-02 05:45] LABS: GLUCOSE 194 mg/dL (74-106)
[2017-07-02] MEDS ORDERED: KEPPRA500 MG PO (09:31)
[2017-07-02 09:37] VITALS: BP 169/93
[2017-07-02 11:41] VITALS: BP 148/88
== END 2017-07-02 14:41 | disposition home health service (06) | DRG 249 ==
LOC: D.ER 12:22 → D.MS 21:24 → D.M2 21:24 → OBSVTIME 06-30 20:00 → D.M2 07-01 16:10
PROVIDERS: Family Medicine; Internal Medicine Hematology & Oncology; Internal Medicine Interventional Cardiology
PROC: 4A023N7 Measurement of Cardiac Sampling and Pressure, Left Heart, Percutaneous Approach (ICD-10-PCS; 2017-06-30)
PROC: B2111ZZ Fluoroscopy of Multiple Coronary Arteries using Low Osmolar Contrast (ICD-10-PCS; 2017-06-30)
PROC: B2151ZZ Fluoroscopy of Left Heart using Low Osmolar Contrast (ICD-10-PCS; 2017-06-30)
PROC: 02703DZ Dilation of Coronary Artery, One Artery with Intraluminal Device, Percutaneous Approach (ICD-10-PCS; principal; 2017-06-30 11:30)
PROC: 02703ZZ Dilation of Coronary Artery, One Artery, Percutaneous Approach (ICD-10-PCS; 2017-07-01)
PROC: B240ZZ3 Ultrasonography of Single Coronary Artery, Intravascular (ICD-10-PCS; 2017-07-01)
PROC: 02703EZ Dilation of Coronary Artery, One Artery with Two Intraluminal Devices, Percutaneous Approach (ICD-10-PCS; 2017-07-01 12:30)
DX: I21.4 Non-ST elevation (NSTEMI) myocardial infarction (principal); I16.9 Hypertensive crisis, unspecified; I25.119 Atherosclerotic heart disease of native coronary artery with unspecified angina pectoris; E11.9 Type 2 diabetes mellitus without complications; D64.9 Anemia, unspecified; S93.601A Unspecified sprain of right foot, initial encounter; X58.XXXA Exposure to other specified factors, initial encounter; I65.23 Occlusion and stenosis of bilateral carotid arteries; Z86.73 Personal history of transient ischemic attack (TIA), and cerebral infarction without residual deficits; Z87.891 Personal history of nicotine dependence

== ENCOUNTER → 2017-07-09 12:05 | Outpatient (CLI) | payer MEDICAID ==
[2017-06-29 04:51] VITALS: BMI 27.4
[2017-07-09 12:29] LABS: HEMATOCRIT 35.7 % (36.0-48.0); HEMOGLOBIN 10.4 g/dL (12-16); MCH 23.3 pg (26.0-34.0); MCHC 29.1 g/dL (31.0-37.0); MCV 79.9 fL (80.0-100.0); MEAN PLATELET VOLUME 10.2 fL (7.4-10.4); RBC 4.47 10x6/uL (4.00-5.40); RDW 27.2 % (11.5-14.5)
== END | disposition home or self-care (01) ==
LOC: D.LAB 08:15
PROVIDERS: Internal Medicine Cardiovascular Disease
DX: D64.9 Anemia, unspecified (principal)

== ENCOUNTER 2017-07-24 00:03 | Emergency (ER) | payer MEDICAID ==
[2017-06-29 04:51] VITALS: BMI 27.4
== END 2017-07-24 02:17 | disposition home or self-care (01) ==
LOC: D.ER 00:03
DX: I10 Essential (primary) hypertension (principal)

== ENCOUNTER → 2017-08-17 12:51 | Outpatient (CLI) | payer MEDICAID ==
[2017-06-29 04:51] VITALS: BMI 27.4
[~2017-08-17 12:51] MED LIST changes: +NORMODYNE / TR200 MG PO
[2017-08-17 13:27] LABS: HEMOGLOBIN 10.2 g/dL (12-16); MCH 25.2 pg (26.0-34.0); MEAN PLATELET VOLUME 9.8 fL (7.4-10.4); RBC 4.05 10x6/uL (4.00-5.40); RDW 21.2 % (11.5-14.5); WBC 8.3 10x3/uL (4.8-10.8)
== END | disposition home or self-care (01) ==
LOC: D.LAB 08-06 08:00
PROVIDERS: Internal Medicine Cardiovascular Disease
DX: D64.9 Anemia, unspecified (principal)

== ENCOUNTER 2017-09-14 07:30 | Inpatient (IN) | payer MEDICAID ==
[2017-09-14] VITALS (13 sets, daily range): BP systolic 115–178; BP diastolic 48–76; BMI 32.3
[~2017-09-14] VITALS: Ht 172.7 cm; Wt 96.6 kg
--- NOTE | ~2017-09-14 | CN ---
PATIENT NAME:JESSE SHAFFER MEDICAL RECORD: [id number] : 58 LOCATION:[facility].CV02 ADMIT DATE: 09/14/17 ACCOUNT: [id number] CONSULTING PHYSICIAN: DAKOTA CASANOVA MD REFERRING PHYSICIAN: FANNIE MARIANO MD DATE OF CONSULTATION: 09/14/2017 REASON FOR CONSULTATION: Diabetes, hypertension medical management. HISTORY OF PRESENT ILLNESS: This is a 56-year-old female with hypertension, diabetes, history of strokes, hyperlipidemia, iron deficient anemia, and carotid occlusive disease, who was admitted for right carotid endarterectomy by Dr. Mariano. Currently, she is undergoing a heparin bridge in anticipation of the right carotid endarterectomy. She has no acute complaints at this time. PAST MEDICAL AND SURGICAL HISTORY: Diabetes, hypertension, hyperlipidemia, stroke in November 2016 with critical left internal carotid stenosis and then significant right internal carotid stenosis. She was admitted in June to undergo a right carotid endarterectomy, but it was found at that time she had anemia for the first time, she was seen by Dr. Linwood baires and was found to have iron deficient anemia. PAST SURGICAL HISTORY: Right carotid endarterectomy by Dr. Mariano in January 2017. She has also had appendectomy, cervical spine surgery, wisdom teeth removed. ALLERGIES: PENICILLIN. HOME MEDICATIONS: Include Plavix 75 mg once a day, ferrous sulfate 325 mg once a day, Eliquis 5 mg twice a day, atorvastatin 10 mg once a day, labetalol 200 mg twice a day, lisinopril 10 mg once a day, aspirin 81 mg once a day, Keppra 500 mg twice a day, metformin 1000 mg twice a day, Novolin R insulin 5 units with meals. HABITS: Former smoker, no alcohol or drugs. FAMILY HISTORY: Significant for cancer. Father is alive with hypertension. Mother is alive with history of leukemia and lupus. SOCIAL HISTORY: She is and currently not working. PHYSICAL EXAMINATION: VITAL SIGNS: Temperature 98.6, pulse 79, respirations 14, blood pressure 156/63. GENERAL: She is in no acute distress, awake and alert. HEENT: Grossly within normal limits. NECK: Supple. There is a well-healed scar on the left side from previous carotid endarterectomy. HEART: Regular rate and rhythm without murmur. LUNGS: Clear. ABDOMEN: Soft, flat, nontender. EXTREMITIES: No edema. LABORATORY WORK: As noted. CONSULT REPORT [id number] JESSE SHAFFER ASSESSMENT: 1. Diabetes. 2. Carotid occlusive disease. 3. Iron deficient anemia. PLAN: Dr. Palumbo has been consulted and she has seen the patient. The patient will be given iron. We will monitor her glucose and blood pressure. We will follow throughout the hospitalization. Thank you for the consult. TRANSINT:[id number] Voice Confirmation ID: [id number] DOCUMENT ID: [id number] DAKOTA CASANOVA MD at 0007 CC: [id number] DICTATION DATE: 09/15/172110 TEACHERS ASSISTANT: 09/16/17 0143 ADM IN [facility] [address] [place] [address]
--- NOTE | ~2017-09-14 | OP ---
PATIENT NAME: JESSE SHAFFER MEDICAL RECORD: [id number] :58 LOCATION:[facility].CV02 ADMISSION DATE:09/14/17 SURGEON: FANNIE MARIANO MD DATE OF OPERATION: 09/16/2017 SURGEON: Fannie Mariano MD ANESTHESIA: General endotracheal, Dr. Melvin. OPERATION PERFORMED: Right carotid endarterectomy with patch angioplasty. PREOPERATIVE DIAGNOSIS: Critical right internal carotid artery stenosis. POSTOPERATIVE DIAGNOSIS: Critical right internal carotid artery stenosis. INDICATION FOR OPERATION: Critical right internal carotid artery stenosis. FINDINGS AT OPERATION: Critical right internal carotid artery stenosis. There were no EEG changes with clamping or unclamping of the carotid artery. ESTIMATED BLOOD LOSS: Less than 50 mL. DESCRIPTION OF PROCEDURE: After informed consent, adequate preoperative medication evaluation, the patient was brought to the operating room, placed on the table in the supine position. After induction of general endotracheal anesthesia and application of appropriate monitoring devices, the right neck and chest were prepped and draped in sterile field, utilizing Betadine scrub, alcohol, and Betadine solution. Betadine-impregnated drape was also used. An oblique incision was made in the skin crease. Dissection carried down to the fascia. Hemostasis maintained with electrocautery. Facial vein was identified and divided. Utilizing sharp dissection, the common carotid, internal and external carotid arteries were dissected free from surrounding structures, protecting the neurological structures. The patient was given a calculated dose of heparin, after 3 minutes, clamps were applied. After 2 minutes, no EEG change. The arteriotomy was made and extended with Pickens scissors. Artery underwent endarterectomy sharply. Artery underwent extensive debridement and irrigation. Utilizing a vascular patch, a running 7-0 Prolene suture, the arteriotomy was closed with patch angioplasty technique. All maneuvers to remove trapped air were performed. The clamps removed sequentially. There were no EEG changes. The patient was given a calculated dose of protamine to reverse the heparin. Hemostasis was assured. A #7 Osman-Carmona drain was left in depths of wound and brought through the base. Neck was again irrigated. Instrument count and sponge count were correct times 2. Neck was closed in layers utilizing 3-0 Vicryl on the platysma, 5-0 subcuticular Monocryl on the skin. Sterile dressings were applied. The patient tolerated the procedure well and was transferred to the CV ICU in satisfactory condition. TRANSINT:[id number] Voice Confirmation ID: [id number] DOCUMENT ID: [id number] OPERATIVE REPORT [id number] JESSE SHAFFER EDWARD MD at 1419 CC: [id number] DICTATION DATE: 09/16/17 1038 DIRECTOR OF SPEECH PATHOLOGY: 09/16/17 1355 ADM IN [place] [address] [place] [address]
--- NOTE | ~2017-09-14 | HP ---
PATIENT: JESSE SHAFFER MEDICAL RECORD: [id number] ACCOUNT: [id number] LOCATION:[facility] : 59 ADMISSION DATE: 09/16/17 HISTORY AND PHYSICAL EXAMINATION NameJESSE SHAFFER (56yo, F) ID# [id number]. Date/Time08/17/2017 01:70XGRDL56/30/1961Service Dept.NPP_[facility] ClinicProviderEDMARION MARIANO MDInsuranceMed Primary: [place] Insurance # : [id number] Policy/Group # : [id number] Referring Provider Name : DAKOTA CASANOVA Employer Name : DISABLED Med : [place] Insurance # : [id number] Prescription: CMX - Member is eligible. Prescription: [facility] MEDICAID ADMINISTRATION - Member is eligible. Chief Complaint Followup: Carotid artery stenosis S/P [facility] 02/18/17 FOLLOWING NEGAR 1 MONTH WITH HEMOGRAM (FOLLOWING ANEMIA) Patient's Care Team Referring Provider (): DAKOTA CASANOVA: [address] [place] [phone], , Primary Care Provider: DAKOTA CASANOVA MD: [address] [place] [phone], , Other: ZORA DOUGLAS MD: [address] [place] [id number], , Vitals BP:126/62 L arm 08/17/2017 01:50 pmHR:76/REG 08/17/2017 01:50 pmHt:5 ft 8 in 08/17/2017 01:42 pmWt:208 lbs 08/17/2017 01:51 pmBMI:31.6 08/17/2017 01:51 pmAllergies Reviewed Allergies PENICILLINSSome allergies listed in Documents: #[id number], #[id number], #[id number], #[id number] could not be added to this patient's chart. Please review these documents and add these allergies to the patient's chart manually as needed.Medications Reviewed Medications atorvastatin 10 mg tablet TK 1 T PO D008/10/17 afzrkdeunnqkrceqemapiftinfr-ztqavaeliizvg-dkrrknxp 50 mg-325 mg-40 mg tablet TK 1 T PO Q 4 H PRN 03/07/17 filledsurescriptsclopidogrel 75 mg tablet TK 1 T PO QD08/13/17 filledCaremarkEliquis 5mg twice daily12/30/[address] 5 mg tablet TK 1 T PO BID06/03/17 filledCaremarkferrous sulfate 325 mg (65 mg iron) tablet TK 1 T PO D006/26/17 filledsurescriptsHumuLIN R Regular U-100 Insulin 100 unit/mL injection ggrictba06/06/18 filledCaremarklabetalol 200 mg /18/18 filledCaremarklevETIRAcetam 500 mg tablet TK 1 T PO BID08/03/17 filledCaremarklisinopril 20 mg tablet TK 1 T PO QD07/07/17 filledsurescriptsmetFORMIN 1,000 mg tablet TK 1 T PO BID WITH MEALS08/02/17 filledCaremarkmetFORMIN 500 mg vqxzto93/04/17 filledCaremarktraMADol 50 mg tablet TK 1 T PO QID08/03/17 wyjfgqbepfobqphmoHdakvw39/01/[address] Some medications listed in Documents: #[id number], #[id number], #[id number] could not be added to this patient's chart. Please review these documents and add these medications to the patient's chart manually as needed. HISTORY AND PHYSICAL [id number] JESSE SHAFFER Vaccines Reviewed Vaccines Some vaccines listed in Documents: #[id number], #[id number], #[id number], #[id number] could not be added to this patient's chart. Please review these documents and add these vaccines to the patient's chart manually as needed. 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 HPI Cerebral Vascular Disease Reported by patient. Quality: R sided weakness Severity: mild loss of strength; interference with daily activities; partial Associated Symptoms: no headache; no nausea; no vomiting; no tinnitus; no difficulty speaking; no lethargy; no fever; no chills; no palpitations; no syncope; no loss of consciousness recent cardiac stents Carotid artery disease ROS Patient reports exercise intolerance but reports no fever, no night sweats, no HISTORY AND PHYSICAL [id number] JESSE SHAFFER significant weight gain, and no significant weight loss. She reports muscle aches, muscle weakness, and arthralgias/joint pain but reports no back pain and no swelling in the extremities. She reports weakness and numbness but reports no loss of consciousness, no seizures, no dizziness, and no headaches; stroke left jess. She reports no dry eyes, no irritation, and no vision change. She reports no difficulty hearing and no ear pain. She reports no frequent nosebleeds and no nose/sinus problems. She reports no sore throat, no b leeding gums, no snoring, no dry mouth, no mouth ulcers, no oral abnormalities, and no teeth problems. She reports no jugular vein distension and no swollen glands. She reports no chest pain, no arm pain on exertion, no shortness of breath when walking, n o shortness of breath when lying down, no palpitations, and no known heart murmur. She reports no cough, no wheezing, no shortness of breath, and no coughing up blood. She reports no abdominal pain, no vomiting, normal appetite, no diarrhea, not vomiting b l ood, no nausea, and no constipation. She reports no incontinence, no difficulty urinating, no hematuria, and no increased frequency. She reports no abnormal mole, no jaundice, and no rashes. She reports no depression, no sleep disturbances, feeling safe i n relationship, and no alcohol abuse. She reports no fatigue. She reports no swollen glands and no bruising. She reports no runny nose, no sinus pressure, no itching, no hives, and no frequent sneezing. ROS as noted in the HPI Physical Exam Patient is a 56-year-old female. Constitutional: General Appearance healthy-appearing, well developed, and overweight. Level of Distress NAD. Ambulation ambulation with walker. Cardiovascular: Apical Impulse not displaced or no thrill. Heart Auscultation normal s1 and s2; no murmurs, rubs, or gallops; and RRR. Arterial Pulses no abdominal aorta bruits, femoral bruits, or popliteal bruits and 2+ bilateral, carotid 2+ bilateral, femoral 2+ bilateral, popliteal 2+ bilateral, and dorsalis pedis 2+ bilateral. Edema no edema or varicosities. Lungs: Repiratory Effort no dyspnea. Percussion no hyperresonance or dullness or flatness. Auscultation no wheezing, rhonchi, or rales / crackles and breathing sounds normal, good air movement, and CTA except as noted. Abdomen: Bowl Soun ds normal. Inspection and Palpation no tenderness, guarding, masses, or rebound tenderness and soft and non-distended. Liver non-tender and no hepatomegaly. Spleen non-tender and no splenomegaly. Hernia none palpable. Musculoskeletal System: Gait And Stance wide-based and irregular gait and stance. Digits and Nails normal nails and no cyanosis. Joints, Bones, and Muscles limited ROM and abnormal strength; especially right upper extremity. Neurologic: Cranial Nerves grossly intact. Reflexes DTRs abnormal. Sensation grossly intact. Lymph Nodes: Lymph Nodes no cervical LAD, supraclavicular LAD, axillary LAD, or inguinal LAD. Eyes: Lids and Conjunctivae no discharge or pallor and non-injected. Pupils PERRLA. Cornea grossly intact. EOM EOMI. Lens clear. Sclera non-icteric. Neck: Neck no masses, enlarged lymph nodes, or carotid bruits and supple and trachea midline. Thyroid no enlargement or nodules and non-tender. HISTORY AND PHYSICAL [id number] JESSE SHAFFER Skin: Inspection and Palpation no rash, lesions, ulcers, jaundice, or abnormal nevi. Assessment / Plan carotid artery disease stable Anemia improving hemoglobin 10.4 1. Carotid artery stenosis I65.23: Occlusion and stenosis of bilateral carotid arteries Discussion Notes patient has appropriate follow-up with Dr. Dumont for anemia in 3 weeks Plan right carotid endarterectomy mid August FANNIE MARIANO MD at 1743 CC: [id number] DICTATION DATE: 08/17/17 1320 OFFICE AUTOMATION CLERK: SOLEDAD 09/11/17 1003 PRE IN [place] [id number] [place] [id number]
[~2017-09-14 07:30] MED LIST changes: -NORMODYNE / TR200 MG PO
[2017-09-14] MEDS ORDERED: NORMODYNE / TR200 MG PO (10:55)
[2017-09-14 11:34] LABS: APPEARANCE CLEAR (CLEAR); BILIRUBIN NEGATIVE (NEGATIVE); COLOR YELLOW (YELLOW); GLUCOSE NEGATIVE (NEGATIVE); KETONE NEGATIVE (NEGATIVE); NITRITE NEGATIVE (NEGATIVE); PROTEIN TRACE mg/dL (NEGATIVE); UROBILINOGEN NORMAL (NORMAL)
[2017-09-14 13:38] LABS: HEMATOCRIT 34.7 % (36.0-48.0); HEMOGLOBIN 10.6 g/dL (12-16); MCH 25.8 pg (26.0-34.0); MCHC 30.5 g/dL (31.0-37.0); MCV 84.4 fL (80.0-100.0); MEAN PLATELET VOLUME 9.8 fL (7.4-10.4); RBC 4.11 10x6/uL (4.00-5.40); RDW 17.1 % (11.5-14.5); WBC 7.1 10x3/uL (4.8-10.8)
[2017-09-14 13:55] LABS: APTT 26.7 SECONDS (22.8-39.4); INR 0.97 (0.85-1.17); PROTIME 12.5 SECONDS (11.6-15.0)
[2017-09-14 14:22] LABS: ALBUMIN 3.2 g/dL (3.4-5.0); ALKALINE PHOSPHATASE 82 U/L (46-116); ALT (SGPT) 17 U/L (10-68); BILIRUBIN - TOTAL 0.22 mg/dL (0.2-1.3); CALC OSMOLALITY 288 mosm/kg (275-300); CARBON DIOXIDE 27.4 mmol/L (21.0-32.0); CHLORIDE - SERUM 106 mmol/L (98-107); CREATININE - SERUM 0.6 mg/dL (0.6-1.3); POTASSIUM - SERUM 4.7 mmol/L (3.5-5.1); PROTEIN - SERUM 6.5 g/dL (6.4-8.2); SODIUM 143 mmol/L (136-145); UREA NITROGEN 14 mg/dL (7-18); eGFR NON AFRICAN AMERICAN > 90 mL/min (90-120)
[2017-09-14 14:23] LABS: GLUCOSE 144 mg/dL (74-106)
[2017-09-14 17:10] LABS: % SATURATION 15 % (15-55); IRON 52 ug/dl (35-150); TOTAL IRON BIND CAPACITY 327 ug/dl (260-445); UNSAT IRON BIND CAPACITY 275 ug/dl (150-375)
[2017-09-15] VITALS (71 sets, daily range): BP systolic 92–178; BP diastolic 41–92; Ht 172.7 cm; Wt 96.6 kg
[2017-09-15 12:25] LABS: HEMATOCRIT 32.5 % (36.0-48.0); HEMOGLOBIN 9.8 g/dL (12-16); MCH 25.1 pg (26.0-34.0); MCHC 30.2 g/dL (31.0-37.0); MCV 83.3 fL (80.0-100.0); MEAN PLATELET VOLUME 9.8 fL (7.4-10.4); RBC 3.9 10x6/uL (4.00-5.40); RDW 17.4 % (11.5-14.5); WBC 7.8 10x3/uL (4.8-10.8)
[2017-09-15 12:45] LABS: INR 0.99 (0.85-1.17); PROTIME 12.7 SECONDS (11.6-15.0)
[2017-09-15 12:48] LABS: ALBUMIN 3.1 g/dL (3.4-5.0); ALKALINE PHOSPHATASE 76 U/L (46-116); ALT (SGPT) 17 U/L (10-68); BILIRUBIN - TOTAL 0.24 mg/dL (0.2-1.3); CALC OSMOLALITY 284 mosm/kg (275-300); CALCIUM 8.7 mg/dL (8.5-10.1); CARBON DIOXIDE 26.4 mmol/L (21.0-32.0); CHLORIDE - SERUM 105 mmol/L (98-107); CREATININE - SERUM 0.8 mg/dL (0.6-1.3); GLUCOSE 160 mg/dL (74-106); POTASSIUM - SERUM 4.8 mmol/L (3.5-5.1); PROTEIN - SERUM 6.7 g/dL (6.4-8.2); SODIUM 141 mmol/L (136-145); UREA NITROGEN 15 mg/dL (7-18); eGFR NON AFRICAN AMERICAN 78 mL/min (90-120)
[2017-09-15 13:04] LABS: APTT 118.5 SECONDS (22.8-39.4)
[2017-09-16] VITALS (50 sets, daily range): BP systolic 102–162; BP diastolic 43–66
[2017-09-17] VITALS (83 sets, daily range): BP systolic 101–164; BP diastolic 37–67
[2017-09-17 09:32] LABS: HEMOGLOBIN 9.2 g/dL (12-16); MCH 26.2 pg (26.0-34.0); MCHC 30.7 g/dL (31.0-37.0); MEAN PLATELET VOLUME 9.7 fL (7.4-10.4); RBC 3.51 10x6/uL (4.00-5.40); RDW 17.2 % (11.5-14.5); WBC 9.5 10x3/uL (4.8-10.8)
[2017-09-17 09:34] LABS: MCV 85.5 fL (80.0-100.0)
[2017-09-18] VITALS (79 sets, daily range): BP systolic 108–155; BP diastolic 41–67
[2017-09-19] VITALS (33 sets, daily range): BP systolic 103–167; BP diastolic 46–73
[2017-09-19] MEDS ORDERED: NORMODYNE / TR200 MG PO (11:27)
== END 2017-09-19 14:50 | disposition home or self-care (01) | DRG 38 ==
LOC: D.SDCHOLD 07:30 → D.CVICU 10:13 → D.SDCHOLD 12:54 → D.CVICU 09-19 14:50
PROVIDERS: Internal Medicine Cardiovascular Disease; Internal Medicine Hematology & Oncology
PROC: 02HV33Z Insertion of Infusion Device into Superior Vena Cava, Percutaneous Approach (ICD-10-PCS; principal; 2017-09-14)
PROC: 03CK0ZZ Extirpation of Matter from Right Internal Carotid Artery, Open Approach (ICD-10-PCS; 2017-09-16)
PROC: 03UK0JZ Supplement Right Internal Carotid Artery with Synthetic Substitute, Open Approach (ICD-10-PCS; 2017-09-16)
DX: I65.23 Occlusion and stenosis of bilateral carotid arteries (principal); G81.91 Hemiplegia, unspecified affecting right dominant side; E11.65 Type 2 diabetes mellitus with hyperglycemia; D50.9 Iron deficiency anemia, unspecified; I10 Essential (primary) hypertension; E78.5 Hyperlipidemia, unspecified; Z79.4 Long term (current) use of insulin; Z86.73 Personal history of transient ischemic attack (TIA), and cerebral infarction without residual deficits; Z87.891 Personal history of nicotine dependence; I67.9 Cerebrovascular disease, unspecified

== ENCOUNTER 2017-09-23 14:48 | Emergency (ER) | payer MEDICAID ==
[2017-09-15 11:42] VITALS: BMI 31.9
[~2017-09-23 14:48] MED LIST changes: +NORMODYNE / TR200 MG PO
[2017-09-23 17:15] LABS: BASOPHILS 0.3 % (0-2); EOSINOPHILS 2.1 % (0-7); HEMATOCRIT 34.9 % (36.0-48.0); HEMOGLOBIN 10.8 g/dL (12-16); IMMATURE GRANULOCYTES 0.4 % (0-5); LYMPHOCYTES 11.6 % (15-50); MCH 26.3 pg (26.0-34.0); MCHC 30.9 g/dL (31.0-37.0); MCV 84.9 fL (80.0-100.0); MEAN PLATELET VOLUME 9.6 fL (7.4-10.4); MONOCYTES 5.8 % (2-11); NEUTROPHILS 79.8 % (40-80); RBC 4.11 10x6/uL (4.00-5.40); RDW 16.1 % (11.5-14.5); WBC 9.9 10x3/uL (4.8-10.8)
[2017-09-23 17:27] LABS: PLATELET COUNT 361 10x3/uL (130-400)
[2017-09-23 17:42] LABS: INR 1.15 (0.85-1.17); PROTIME 14.3 SECONDS (11.6-15.0)
[2017-09-23 17:43] LABS: APTT 32.9 SECONDS (22.8-39.4)
[2017-09-23 17:50] LABS: ALBUMIN 3.1 g/dL (3.4-5.0); ALKALINE PHOSPHATASE 75 U/L (46-116); ALT (SGPT) 18 U/L (10-68); BILIRUBIN - TOTAL 0.22 mg/dL (0.2-1.3); CALC OSMOLALITY 286 mosm/kg (275-300); CALCIUM 9.3 mg/dL (8.5-10.1); CARBON DIOXIDE 24.5 mmol/L (21.0-32.0); CHLORIDE - SERUM 104 mmol/L (98-107); CREATININE - SERUM 0.7 mg/dL (0.6-1.3); GLUCOSE 146 mg/dL (74-106); POTASSIUM - SERUM 4.4 mmol/L (3.5-5.1); PROTEIN - SERUM 7.6 g/dL (6.4-8.2); SODIUM 143 mmol/L (136-145); UREA NITROGEN 9 mg/dL (7-18); eGFR NON AFRICAN AMERICAN > 90 mL/min (90-120)
== END 2017-09-23 18:33 | disposition other institution (70) ==
LOC: D.ER 14:48
PROVIDERS: Emergency Medicine
DX: R53.1 Weakness (principal); R56.9 Unspecified convulsions; I10 Essential (primary) hypertension

== ENCOUNTER → 2017-10-22 09:31 | Outpatient (CLI) | payer MEDICAID ==
[2017-09-15 11:42] VITALS: BMI 31.9
[2017-10-22 10:10] LABS: BASOPHILS 0.3 % (0-2); EOSINOPHILS 2.2 % (0-7); HEMATOCRIT 30.2 % (36.0-48.0); HEMOGLOBIN 9.1 g/dL (12-16); IMMATURE GRANULOCYTES 0.3 % (0-5); LYMPHOCYTES 18.1 % (15-50); MCH 26.5 pg (26.0-34.0); MCHC 30.1 g/dL (31.0-37.0); MEAN PLATELET VOLUME 10.2 fL (7.4-10.4); NEUTROPHILS 73.1 % (40-80); PLATELET COUNT 294 10x3/uL (130-400); RBC 3.43 10x6/uL (4.00-5.40); RDW 15.9 % (11.5-14.5); WBC 7.4 10x3/uL (4.8-10.8)
[2017-10-22 10:21] LABS: % SATURATION 9 % (15-55); IRON 27 ug/dl (35-150); TOTAL IRON BIND CAPACITY 288 ug/dl (260-445); UNSAT IRON BIND CAPACITY 261 ug/dl (150-375)
== END | disposition home or self-care (01) ==
LOC: D.LAB 09:31
PROVIDERS: Internal Medicine Cardiovascular Disease
DX: D64.9 Anemia, unspecified (principal)

== ENCOUNTER 2017-10-25 12:49 | Emergency (ER) | payer MEDICAID ==
[2017-09-15 11:42] VITALS: BMI 31.9
[2017-10-25 13:53] LABS: APPEARANCE CLEAR (CLEAR); BASOPHILS 0.2 % (0-2); BILIRUBIN NEGATIVE (NEGATIVE); COLOR STRAW (YELLOW); EOSINOPHILS 2.3 % (0-7); GLUCOSE NEGATIVE (NEGATIVE); HEMATOCRIT 34.3 % (36.0-48.0); HEMOGLOBIN 10.5 g/dL (12-16); IMMATURE GRANULOCYTES 0.2 % (0-5); KETONE NEGATIVE (NEGATIVE); LYMPHOCYTES 17.5 % (15-50); MCH 26.6 pg (26.0-34.0); MCHC 30.6 g/dL (31.0-37.0); MCV 87.1 fL (80.0-100.0); MONOCYTES 5.3 % (2-11); NEUTROPHILS 74.5 % (40-80); NITRITE NEGATIVE (NEGATIVE); PH 7.5 (5.0-6.0); PLATELET COUNT 330 10x3/uL (130-400); PROTEIN 1+ mg/dL (NEGATIVE); RBC 3.94 10x6/uL (4.00-5.40); RDW 15.4 % (11.5-14.5); SPECIFIC GRAVITY 1.005 (1.005-1.020); UROBILINOGEN NORMAL (NORMAL); WBC 8.8 10x3/uL (4.8-10.8)
[2017-10-25 13:58] LABS: ALBUMIN 3.4 g/dL (3.4-5.0); ALKALINE PHOSPHATASE 102 U/L (46-116); ALT (SGPT) 18 U/L (10-68); BILIRUBIN - TOTAL 0.22 mg/dL (0.2-1.3); CALC OSMOLALITY 286 mosm/kg (275-300); CALCIUM 9.8 mg/dL (8.5-10.1); CARBON DIOXIDE 29.3 mmol/L (21.0-32.0); CHLORIDE - SERUM 105 mmol/L (98-107); CREATININE - SERUM 0.7 mg/dL (0.6-1.3); MAGNESIUM - SERUM 1.7 mg/dL (1.8-2.4); POTASSIUM - SERUM 4.4 mmol/L (3.5-5.1); PROTEIN - SERUM 7.8 g/dL (6.4-8.2); SODIUM 142 mmol/L (136-145); UREA NITROGEN 9 mg/dL (7-18); eGFR NON AFRICAN AMERICAN > 90 mL/min (90-120)
[2017-10-25 14:00] LABS: GLUCOSE 194 mg/dL (74-106)
[2017-10-25 14:01] LABS: BACTERIA FEW /hpf (NONE SEEN); EPITHELIAL CELLS RARE /hpf (0-5); RED CELLS - URINE OCC /hpf (0-5); WHITE CELLS - URINE 0-5 /hpf (0-5)
== END 2017-10-25 15:42 | disposition home or self-care (01) ==
LOC: D.ER 12:49
PROVIDERS: Emergency Medicine
DX: G40.909 Epilepsy, unspecified, not intractable, without status epilepticus (principal); I10 Essential (primary) hypertension

== ENCOUNTER 2017-12-27 02:59 | Emergency (ER) | payer MEDICAID ==
[~2017-12-27] VITALS: Ht 172.7 cm; Wt 104.1 kg
[2017-12-27 03:07] VITALS: Ht 172.7 cm; Wt 104.1 kg
[2017-12-27] MEDS ORDERED: ULTRAM50 MG PO (03:22)
[2017-12-27] MEDS ORDERED: AMBIEN5 MG PO (03:23)
[2017-12-27] MEDS ORDERED: LIPITOR10 MG PO (03:23)
[2017-12-27 03:31] LABS: BASOPHILS 0.3 % (0-2); EOSINOPHILS 1.2 % (0-7); HEMATOCRIT 40.6 % (36.0-48.0); HEMOGLOBIN 12.3 g/dL (12-16); IMMATURE GRANULOCYTES 0.1 % (0-5); LYMPHOCYTES 13.2 % (15-50); MCH 26.2 pg (26.0-34.0); MCHC 30.3 g/dL (31.0-37.0); MCV 86.6 fL (80.0-100.0); MEAN PLATELET VOLUME 10.3 fL (7.4-10.4); MONOCYTES 4.7 % (2-11); NEUTROPHILS 80.5 % (40-80); PLATELET COUNT 357 10x3/uL (130-400); RBC 4.69 10x6/uL (4.00-5.40); RDW 14.3 % (11.5-14.5); WBC 14.6 10x3/uL (4.8-10.8)
[2017-12-27 03:40] LABS: APTT 26.5 SECONDS (22.8-39.4); INR 1.02 (0.85-1.17)
[2017-12-27 03:44] LABS: ALBUMIN 3.5 g/dL (3.4-5.0); ALKALINE PHOSPHATASE 97 U/L (46-116); ALT (SGPT) 19 U/L (10-68); BILIRUBIN - TOTAL 0.19 mg/dL (0.2-1.3); CALC OSMOLALITY 285 mosm/kg (275-300); CALCIUM 9.4 mg/dL (8.5-10.1); CARBON DIOXIDE 27.2 mmol/L (21.0-32.0); CHLORIDE - SERUM 103 mmol/L (98-107); CREATININE - SERUM 0.7 mg/dL (0.6-1.3); GLUCOSE 229 mg/dL (74-106); POTASSIUM - SERUM 4.5 mmol/L (3.5-5.1); PROTEIN - SERUM 7.9 g/dL (6.4-8.2); SODIUM 140 mmol/L (136-145); UREA NITROGEN 13 mg/dL (7-18); eGFR NON AFRICAN AMERICAN > 90 mL/min (90-120)
[2017-12-27 03:49] LABS: CREATINE KINASE 36 UL (21-215)
[2017-12-27 03:51] LABS: TROPONIN-I < 0.017 ng/mL (0.000-0.060)
[2017-12-27 06:30] VITALS: BP 179/81
[2017-12-27 06:44] LABS: APPEARANCE CLEAR (CLEAR); BILIRUBIN NEGATIVE (NEGATIVE); COLOR YELLOW (YELLOW); GLUCOSE 50 mg/dL (NEGATIVE); KETONE NEGATIVE (NEGATIVE); NITRITE NEGATIVE (NEGATIVE); PROTEIN 3+ mg/dL (NEGATIVE); SPECIFIC GRAVITY 1.015 (1.005-1.020); UROBILINOGEN NORMAL (NORMAL)
[2017-12-27 06:57] LABS: BACTERIA FEW /hpf (NONE SEEN); EPITHELIAL CELLS OCC /hpf (0-5); GRANULAR CAST RARE /lpf (NONE SEEN); HYALINE CAST OCC /lpf (NONE SEEN); WHITE CELLS - URINE 0-5 /hpf (0-5)
== END 2017-12-27 06:31 | disposition short-term general hospital (02) ==
LOC: D.ER 02:59
PROVIDERS: Family Medicine
DX: G40.909 Epilepsy, unspecified, not intractable, without status epilepticus (principal); E87.2 Acidosis; J96.90 Respiratory failure, unspecified, unspecified whether with hypoxia or hypercapnia; Z86.73 Personal history of transient ischemic attack (TIA), and cerebral infarction without residual deficits; E11.9 Type 2 diabetes mellitus without complications; I10 Essential (primary) hypertension; I25.10 Atherosclerotic heart disease of native coronary artery without angina pectoris

== ENCOUNTER → 2018-04-13 10:52 | Outpatient (CLI) | payer MEDICAID ==
[2017-12-27 03:07] VITALS: BMI 34.9
[~2018-04-13 10:52] MED LIST changes: +AMBIEN5 MG PO
== END | disposition home or self-care (01) ==
LOC: D.US 10:52
DX: I65.23 Occlusion and stenosis of bilateral carotid arteries (principal)

== ENCOUNTER → 2018-10-21 13:17 | Outpatient (CLI) | payer MEDICAID ==
[2017-12-27 03:07] VITALS: BMI 34.9
== END | disposition home or self-care (01) ==
LOC: D.US 10-14 13:30
PROVIDERS: ATTEND Internal Medicine Cardiovascular Disease
DX: I65.23 Occlusion and stenosis of bilateral carotid arteries (principal)

== ENCOUNTER 2019-09-14 15:10 | Emergency (ER) | payer BC ==
[~2019-09-14] VITALS: Ht 172.7 cm; Wt 114.1 kg
[2019-09-14 15:10] VITALS: Ht 172.7 cm; Wt 114.1 kg
[2019-09-14 15:35] LABS: BASOPHILS 0.4 % (0-2); EOSINOPHILS 2.6 % (0-7); HEMATOCRIT 38.4 % (36.0-48.0); HEMOGLOBIN 11.4 g/dL (12-16); IMMATURE GRANULOCYTES 0.1 % (0-5); LYMPHOCYTES 17.8 % (15-50); MCH 26.3 pg (26.0-34.0); MCHC 29.7 g/dL (31.0-37.0); MCV 88.7 fL (80.0-100.0); MEAN PLATELET VOLUME 10.1 fL (7.4-10.4); MONOCYTES 7.5 % (2-11); NEUTROPHILS 71.6 % (40-80); PLATELET COUNT 316 10x3/uL (130-400); RBC 4.33 10x6/uL (4.00-5.40); RDW 14.5 % (11.5-14.5)
[2019-09-14 15:44] LABS: CALC OSMOLALITY 285 mosm/kg (275-300); CALCIUM 9.1 mg/dL (8.5-10.1); CARBON DIOXIDE 29.3 mmol/L (21.0-32.0); CHLORIDE - SERUM 104 mmol/L (98-107); CREATININE - SERUM 0.9 mg/dL (0.6-1.3); GLUCOSE 191 mg/dL (74-106); POTASSIUM - SERUM 4.1 mmol/L (3.5-5.1); SODIUM 141 mmol/L (136-145); UREA NITROGEN 13 mg/dL (7-18); eGFR NON AFRICAN AMERICAN 68 mL/min (90-120)
[2019-09-14 15:54] LABS: APTT 28.7 SECONDS (22.8-39.4); PROTIME 13.1 SECONDS (11.6-15.0)
[2019-09-14 16:01] LABS: ALBUMIN 3.1 g/dL (3.4-5.0); ALKALINE PHOSPHATASE 82 U/L (30-120); ALT (SGPT) 19 U/L (10-68); BILIRUBIN - TOTAL 0.24 mg/dL (0.2-1.3); CKMB 1.2 U/L (0.0-3.6); CREATINE KINASE 33 UL (21-215); MAGNESIUM - SERUM 1.6 mg/dL (1.8-2.4); PROTEIN - SERUM 7.3 g/dL (6.4-8.2); THYROID STIMULATING HORMONE 1.81 uIU/mL (0.36-3.74)
[2019-09-14 16:02] LABS: TROPONIN-I < 0.017 ng/mL (0.000-0.060)
[2019-09-14] MEDS ORDERED: GLIMEPIRIDE1 MG (16:29)
--- NOTE | 2019-09-14 17:37 | NUR ---
PATIENT UNABLE TO ANSWER SAFETY REVIEW QUESTIONS FOR MRI SCAN. SPOKE WITH LUIS GALAVIZ AND DR LEE ABOUT PATIENTS INABILITY TO ANSWER. CTA'S WERE DONE AND MR WILL BE CANCELLED AT THIS TIME.
[2019-09-14 20:35] VITALS: BP 197/81
== END 2019-09-14 20:35 | disposition other institution (70) ==
LOC: D.ER 15:10
PROVIDERS: Family Medicine
DX: I63.9 Cerebral infarction, unspecified (principal); R56.9 Unspecified convulsions; R41.82 Altered mental status, unspecified; I10 Essential (primary) hypertension; E11.9 Type 2 diabetes mellitus without complications; Z79.4 Long term (current) use of insulin

== ENCOUNTER → 2019-10-12 08:46 | Outpatient (CLI) | payer BC ==
[2019-09-14 15:10] VITALS: BMI 38.2
[~2019-10-12 08:46] MED LIST changes: +GLIMEPIRIDE1 MG
== END | disposition home or self-care (01) ==
LOC: D.US 08:46
PROVIDERS: ATTEND Internal Medicine Interventional Cardiology
DX: G45.9 Transient cerebral ischemic attack, unspecified (principal); I65.23 Occlusion and stenosis of bilateral carotid arteries

== ENCOUNTER 2020-03-07 16:14 | Emergency (ER) | payer BC ==
[~2020-03-07] VITALS: Ht 172.7 cm; Wt 109.1 kg
[2020-03-07 16:15] VITALS: Ht 172.7 cm; Wt 109.1 kg
[2020-03-07] MEDS ORDERED: MELATONIN10 M1 PO (16:19)
[2020-03-07 16:38] LABS: BASOPHILS 0.2 % (0-2); EOSINOPHILS 2.7 % (0-7); HEMATOCRIT 37.1 % (36.0-48.0); HEMOGLOBIN 11.2 g/dL (12-16); IMMATURE GRANULOCYTES 0.1 % (0-5); LYMPHOCYTES 18.2 % (15-50); MCH 26.2 pg (26.0-34.0); MCHC 30.2 g/dL (31.0-37.0); MCV 86.9 fL (80.0-100.0); MEAN PLATELET VOLUME 10.2 fL (7.4-10.4); MONOCYTES 7.5 % (2-11); NEUTROPHILS 71.3 % (40-80); PLATELET COUNT 316 10x3/uL (130-400); RBC 4.27 10x6/uL (4.00-5.40); RDW 14.8 % (11.5-14.5); WBC 9.7 10x3/uL (4.8-10.8)
[2020-03-07 16:48] LABS: INR 0.93 (0.85-1.17); PROTIME 12.4 SECONDS (11.6-15.0)
[2020-03-07 16:49] LABS: APTT 27.7 SECONDS (22.8-39.4)
[2020-03-07 16:50] LABS: CALCIUM 8.9 mg/dL (8.5-10.1); CARBON DIOXIDE 28.8 mmol/L (21.0-32.0); CHLORIDE - SERUM 104 mmol/L (98-107); CREATININE - SERUM 0.8 mg/dL (0.6-1.3); POTASSIUM - SERUM 5.2 mmol/L (3.5-5.1); SODIUM 142 mmol/L (136-145); UREA NITROGEN 11 mg/dL (7-18); eGFR NON AFRICAN AMERICAN 77 mL/min (90-120)
[2020-03-07 17:06] LABS: ALBUMIN 3.1 g/dL (3.4-5.0); ALKALINE PHOSPHATASE 92 U/L (30-120); ALT (SGPT) 20 U/L (10-68); BILIRUBIN - TOTAL 0.38 mg/dL (0.2-1.3); CREATINE KINASE 103 UL (21-215); MAGNESIUM - SERUM 1.8 mg/dL (1.8-2.4); PROTEIN - SERUM 7.4 g/dL (6.4-8.2); THYROID STIMULATING HORMONE 2.13 uIU/mL (0.36-3.74)
[2020-03-07 17:12] LABS: CALC OSMOLALITY 283 mosm/kg (275-300); GLUCOSE 140 mg/dL (74-106); TROPONIN-I < 0.017 ng/mL (0.000-0.060)
[2020-03-07 18:53] VITALS: BP 180/70
== END 2020-03-07 18:54 | disposition other institution (70) ==
LOC: D.ER 16:14
PROVIDERS: Family Medicine
DX: R41.0 Disorientation, unspecified (principal); G40.89 Other seizures; Z86.73 Personal history of transient ischemic attack (TIA), and cerebral infarction without residual deficits; E11.9 Type 2 diabetes mellitus without complications; I10 Essential (primary) hypertension; Z79.84 Long term (current) use of oral hypoglycemic drugs

== ENCOUNTER → 2020-11-05 09:17 | Outpatient (CLI) | payer BC ==
[2020-03-07 16:15] VITALS: BMI 36.5
[~2020-11-05 09:17] MED LIST changes: +MELATONIN10 M1 PO
== END | disposition home or self-care (01) ==
LOC: D.US 10-30 08:30
PROVIDERS: ATTEND Internal Medicine Interventional Cardiology
DX: I65.23 Occlusion and stenosis of bilateral carotid arteries (principal)